=== PATIENT | male | born 1935 | race Caucasian/White ===

== ENCOUNTER 2017-04-04 04:38 | Inpatient (IN) | payer MEDICARE, OTHER ==
[2017-04-04] MEDS ORDERED: Aspirin Low Dose CHEW TAB* 81 MG PO ONE (04:59)
[2017-04-04 05:10] LABS: Hematocrit 31 % (42-52); Hemoglobin 10.8 g/dl (14.0-18.0); Mean Corpuscular HGB Conc 35 g/dl (31-36); Mean Corpuscular Hemoglobin 32 pg (27-31); Mean Corpuscular Volume 93 fL (80-94); Mean Platelet Volume 8 um3 (7.4-10.4); Red Blood Count 3.35 10^6/ul (4.0-5.4); Red Cell Distribution Width 14 % (10.5-15); White Blood Count 7.9 10^3/ul (3.5-10.8)
[2017-04-04 05:26] LABS: Albumin 3.9 g/dL (3.2-5.2); Calcium 9.1 mg/dL (8.6-10.3); EGFR African American 50.9 (>60); EGFR Non-African American 39.6 (>60); Globulin 3.7 g/dL (2-4); Potassium 3.9 mmol/L (3.5-5.0); Total Bilirubin 0.9 mg/dL (0.2-1.0); Total Protein 7.6 g/dL (6.4-8.9)
[2017-04-04 05:33] LABS: Troponin I 0.11 ng/mL (<0.04)
--- NOTE | 2017-04-04 05:34 | ED ---
Radha Noland Thomas, scribed for Sonu Smith MD on 04/04/17 at 0510 . Shortness of Breath - HPI Summary HPI Summary: The pt is a 82 y/o M presenting to the ED c/o new-onset mild SOB that began three days ago. The SOB is aggravated with exertion and is alleviated by nothing. 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 He also has A-Fib that began a year and a half ago. Pt also c/o 1/10 CP characterized a pressure, although he does note that this is difficult to distinguish from his costochondritis. Pt additionally c/o recent weight gain. He is taking spironolactone. PMHx: A-FIB, CHF, HTN, CAD, BPH, HLD. PSHx: aortic valve replacement, open heart surgery. SHx: no smoking, no alcohol use. He is accompanied by his . He has had EKGs and echocardiograms performed, and he is in the process of scheduling for a stress test. He presents to the ED at the request of his PCP, who he saw last week. Over the last 6 months, he has had 1- 2 episodes of SOB that are somewhat similar to this. - History of Current Complaint Chief Complaint: EDChestPainROMI Time Seen by Provider: 04/04/17 04:46 Hx Obtained From: Patient, Family/Gore Seamer - in room Onset/Duration: Lasting Days - 3, Still Present Timing: Constant Dyspnea At: Rest Aggrevating Factors: Movement Alleviating Factors: Nothing Associated Signs & Symptoms: Chest Pain Unrelated to Cough - Allergy/Home Medications Allergies/Adverse Reactions: Allergies Allergy/AdvReac Type Severity Reaction Status Date / Time Amoxicillin Allergy Severe Rash Verified 04/04/17 04:51 Naproxen [From Aleve] Allergy Severe Hives Verified 04/04/17 04:51 Food Allergy Unknown GI Upset Verified 04/04/17 04:51 Sulfa Drugs Allergy Unknown UNK Verified 04/04/17 04:51 Celecoxib [From Celebrex] AdvReac Intermediate GI SYMPTOMS Verified 04/04/17 04: 51 Hydrocodone AdvReac Intermediate GI SYMPTOMS Verified 04/04/17 04:51 Ibuprofen AdvReac Unknown GI Upset Verified 04/04/17 04:51 Home Medications: Home Medications Digoxin [Digitek] 0.5 - 1 mg PO EVERY OTHER DAY 04/04/17 [History Confirmed ] Levothyroxine Sodium [Levoxyl] 125 mcg PO DAILY 04/04/17 [History Confirmed ] Metoprolol Tartrate 75 mg PO DAILY 04/04/17 [History Confirmed 04/04/17] Spironolactone [Aldactone 25 MG-] 25 mg PO DAILY 04/04/17 [History Confirmed ] PMH/Surg Hx/FS Hx/Imm Hx Previously Healthy: No Endocrine/Hematology History: Reports: Hx Thyroid Disease Denies: Hx Diabetes Cardiovascular History: Reports: Hx Congestive Heart Failure, Hx Coronary Artery Disease, Hx Hypercholesterolemia, Hx Hypertension - W/MEDS, Hx Valvular Heart Disease - AORTIC VALVE REPLACEMENT, Other Cardiovascular Problems/ Disorders - CAD, HIGH CHOLESTEROL GI History: Denies: Other GI Disorders History: Reports: Other Problems/Disorders - prostate ca and prostatectomy Denies: Hx Renal Disease Musculoskeletal History: Reports: Hx Back Problems - s/p laminectomy, Other Musculoskeletal History - LAMINECTOMY Sensory History: Reports: Hx Contacts or Glasses - reading only, not with pt, Other Sensory Impairments - CORNEAL LENS IMPLANTS Opthamlomology History: Reports: Hx Contacts or Glasses - reading only, not with pt, Other Sensory Impairments - CORNEAL LENS IMPLANTS - Cancer History Cancer Type, Location and Year: PROSTATE 1999 - Surgical History Surgery Procedure, Year, and Place: RADICAL PROSTATECTOMY-1999, RF ABLATION, RT RCR-1998, LENS REPLACEMENTS, open heart. AVR-2009 Infectious Disease History: No Infectious Disease History: Reports: Hx Shingles Denies: Traveled Outside the [place] in Last 30 Days - Family History Known Family History: Positive: Other - POS: CVA - Social History Alcohol Use: None Substance Use Type: Reports: None Hx Tobacco Use: No Smoking Status (MU): Never Smoked Tobacco Review of Systems Positive: Other - POS: recent weight gain Positive: Chest Pain - 08/21, pressure, Other - POS: A-Fib (onset a year ago) Positive: Shortness Of Breath - mild, began 3 days ago, worsened with exertion All Other Systems Reviewed And Are Negative: Yes Physical Exam Triage Information Reviewed: Yes Vital Signs On Initial Exam: Initial Vitals Pulse Resp BP Pulse Ox 71 18 147/77 96 04/04/17 04:49 04/04/17 04:49 04/04/17 04:49 04/04/17 04:49 Vital Signs Reviewed: Yes Appearance: Positive: Well-Appearing, No Pain Distress Skin: Positive: Warm Head/Face: Positive: Normal Head/Face Inspection Eyes: Positive: AMY ENT: Positive: Hearing grossly normal Neck: Positive: Supple Respiratory/Lung Sounds: Positive: Clear to Auscultation, Breath Sounds Present Cardiovascular: Positive: RRR Abdomen Description: Positive: Nontender, No Organomegaly, Soft Bowel Sounds: Positive: Present Musculoskeletal: Positive: Strength/ROM Intact Neurological: Positive: Alert, Oriented to Person Place, Time, Normal Gait Psychiatric: Positive: Affect/Mood Appropriate - Reza Coma Scale Coma Scale Total: 15 Diagnostics - Vital Signs Vital Signs Temp Pulse Resp BP Pulse Ox 04/04/17 05:00 73 15 98 04/04/17 04:53 145/74 04/04/17 04:52 99.0 F 71 18 147/77 96 04/04/17 04:49 71 18 147/77 96 - Laboratory Result Diagrams: 04/04/17 04:58 04/04/17 04:58 Lab Statement: Any lab studies that have been ordered have been reviewed, and results considered in the medical decision making process. - EKG 04:43 Cardiac Rate: NL - 73 BPM EKG Interpretation: A-Fib. Moderate ventricular response. Nonspecific ST T abnormalities. Re-Evaluation - Re-Evaluation First Eval Change: Improved - results d/w pt, case d/w hospitalist Course/Dx - Course Assessment/Plan: The pt is a 82 y/o M presenting to the ED c/o new-onset mild SOB that began three days ago. The SOB is aggravated with exertion and is alleviated by nothing. 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 He also has A-Fib that began a year and a half ago. Pt also c/o 1/10 CP characterized a pressure, although he does note that this is difficult to distinguish from his costochondritis. Pt additionally c/o recent weight gain. He is taking spironolactone. PMHx: A-FIB, CHF, HTN, CAD, BPH, HLD. PSHx: aortic valve replacement, open heart surgery. SHx: no smoking, no alcohol use. He is accompanied by his . He has had EKGs and echocardiograms performed, and he is in the process of scheduling for a stress test. He presents to the ED at the request of his PCP, who he saw last week. Over the last 6 months, he has had 1- 2 episodes of SOB that are somewhat similar to this. In the ED course the patient was given ASA. Blood work shows RBC 3.35, Hgb 10.8, Hct 31, Sodium 129, Chloride 95, BUN 25, Creatinine 1.67, Glucose 112, Troponin 0.11, BNP 515. EKG reveals A-Fib with moderate ventricular response and nonspecific ST T abnormalities. I consulted with Dr. Chaudhari, hospitalist, who admits the patient to [facility]. - Diagnoses Provider Diagnoses: ACS (acute coronary syndrome) Discharge - Discharge Plan Condition: Fair Disposition: ADMITTED TO [facility] Referrals: Oswald Morgan MD [Primary Care Provider] - The documentation as recorded by the Radha de la cruz Thomas accurately reflects the service I personally performed and the decisions made by me, Sonu Smith MD.
[2017-04-04] MEDS ORDERED: Nitroglycerin TAB 0.4 MG* 0.4 MG TAB SL ONE (07:56)
--- NOTE | 2017-04-04 08:02 | RAD ---
INDICATION: Substernal chest pressure for a couple of weeks. History of aortic valve replacement, coronary artery disease, congestive heart failure. COMPARISON: January 20, 2016 CT. November 03, 2015 radiographs. TECHNIQUE: Dual energy PA and routine lateral views of the chest were obtained. REPORT: Mildly coarsened interstitial markings without change. No focal pulmonary lesion, alveolar consolidation, pleural effusion, pneumothorax. Median sternotomy wires. Mild cardiomegaly. Prosthetic aortic valve. Unremarkable central pulmonary vasculature and mediastinal contours. Thoracic degenerative spondylosis. IMPRESSION: No evidence for acute intrathoracic disease.
[2017-04-04 09:02] LABS: Troponin I 0.1 ng/mL (<0.04)
[2017-04-04] MEDS ORDERED: Furosemide IV* 10 MG/ML 2 ML VIAL (20 MG) IV ONE (09:19)
[2017-04-04] MEDS ORDERED: Acetaminophen TAB* 325 MG PO PRN (09:21)
[2017-04-04 09:48] LABS: Digoxin 0.3 ng/ml (0.8-2.0)
[2017-04-04 09:50] LABS: HDL Cholesterol 38.2 mg/dL
[2017-04-04] MEDS: Dabigatran CAP(NF) 150 MG CAP PO SCH ×2 (10:57→22:23)
--- NOTE | 2017-04-04 13:40 | HP ---
CC: Dr. Morgan; Dr. Moran; Dr. Fierro * HISTORY AND PHYSICAL: DATE OF ADMISSION: 04/04/17 PRIMARY CARE PROVIDER: Dr. Morgan. CHIEF COMPLAINT: Chest pain and shortness of breath. HISTORY OF PRESENT ILLNESS: Arnol Uribe is an 82-year-old male with a history of diastolic CHF, status post aortic valve replacement with bioprosthetic valve , who presented to [facility] complaining of chest pain and shortness of breath. The patient stated that his symptoms are mostly related to dyspnea with exertion, dyspnea when lying down. It has been ongoing for [address] Moran on 03/27/17, and as per patient, he was under the impression that he was going to get an outpatient stress test. As per Dr. Moran 's note, a stress test was not recommended at that point. Nevertheless, the patient came in, his troponin was 0.11. He complains of no chest pain, but once again dyspnea when lying down. He did gain approximately [address] Morgan stopped his diuretics for approximately a week at the beginning of the month due to his hyponatremia. Those were restarted. The patient also stated that his medications are in the process of being changed and he does not really remember his medications correctly. He is going to be admitted to the hospital with possibility of non-ST elevation PR. He is going to be placed for a stress test today in the morning and Cardiology consult. PAST MEDICAL HISTORY: 1. History of aortic stenosis, status bioprosthetic valve replacement in 2009. 2. Hypertension. 3. History of chronic atrial fibrillation, diagnosed a [id number] ago. 4. History of atrial tachycardia, status post ablation in 2005. 5. History of diastolic CHF, most recent echo on 03/25/17 showed EF of 55% to 60%. 6. History of dyslipidemia. 7. History of hyponatremia. 8. History of laminectomy. 9. History of shingles. 10. History of prostate cancer. 11. Chronic hyponatremia. 12. Chronic kidney disease, stage 3. MEDICATIONS: Current medications, from what I could gather from Dr. Moran's note and with the patient's help, include: 1. Diovan 40 mg daily. 2. Lipitor 10 mg daily. 3. Polyethylene glycol on daily basis. 4. Levothyroxine 125 micrograms daily. 5. Bumetanide 1.5 mg daily. 6. Metoprolol succinate 75 mg daily. 7. Pradaxa 150 mg b.i.d. 8. Vitamin D3 1000 units daily. 9. Ultram 100 mg at night. 10. Requip 1 mg at night. 11. Digoxin 0.125 micrograms alternating every other day with half the dose. 12. Aldactone 25 mg daily. ALLERGIES: Several and includes AMOXICILLIN, NAPROXEN, SULFA DRUGS, CELECOXIB HYDROCODONE, and IBUPROFEN. FAMILY HISTORY: Positive for mother with stroke and father with history of heart disease. SOCIAL HISTORY: The patient denies any tobacco, alcohol or drug use. 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 He lives with his , who is his healthcare proxy. He ambulates without any need of support. REVIEW OF SYSTEMS: Please see history of present illness. In addition to the above mentioned, the patient stated that he gained approximately 15 pounds in past 2 weeks. He noted more leg edema that improves after he takes his daily diuretics. The patient also stated that his blood pressures had been low and his medications had been adjusted due to that and his metoprolol was lowered recently by Dr. Morgan. He also states that he has problems with intermittent constipation and he takes laxatives for that, but no issues recently. All the remaining 14 systems reviewed with the patient and were otherwise negative. PHYSICAL EXAMINATION GENERAL: The patient is a very pleasant 82-year-old male, who is in no acute distress. His current weight is 243 pounds. The patient is alert, awake, and oriented x3. VITAL SIGNS: Blood pressure 143/78, heart rate of 71 and irregularly irregular , respiratory rate 13, oxygen saturation 97% on room, temperature 99.0. HEENT: Head is atraumatic, normocephalic. Eyes: Pupils are equal, reactive to light and accommodation. Oropharynx clear. Mucosa moist. NECK: Supple. No JVD, no bruits bilaterally. RESPIRATORY: Clear to auscultation bilaterally. CARDIOVASCULAR: Irregularly irregular rhythm. No murmur. ABDOMEN: Soft, nontender. Bowel sounds present in all 4 quadrants. EXTREMITIES: There is +1 pitting pedal edema bilaterally. Pulses are +2 bilaterally. There is no clubbing or cyanosis. NEUROLOGIC: Cranial nerves II through XII are grossly intact. Motor strength is 5/5 bilaterally. PSYCHIATRIC: Oriented x3, with no evidence of anxiety or depression. DIAGNOSTIC STUDIES/LABORATORY DATA: Laboratory data showed white blood cell count of 7.9, hemoglobin of 10.8, hematocrit of 31 and platelets of 139. Sodium was 129, potassium 3.9, chloride 95, carbon dioxide 27, BUN 25, and creatinine 1.67. Liver profile was unremarkable. The patient's troponin was 0.11, repeat troponin 0.1. Brain natriuretic peptide was 515. Cholesterol profile showed triglycerides of 42, total cholesterol of 86, LDL of 39, and HDL of 38. Digoxin level is 0.3. The patient's EKG showed atrial fibrillation, with a heart rate of 73 beats per minute, with right bundle-branch block and ST depressions in anterolateral leads. Compared with an EKG from October 2015, those changes are chronic. Portable chest x-ray, reviewed by the Radiologists. Impression: "No evidence of acute intrathoracic disease." ASSESSMENT AND PLAN: 1. In regards to the patient's dyspnea on exertion and chest pain, at this point, I believe, his symptoms are more related to congestive heart failure than obstructive coronary artery disease, but for the time being, non-ST elevation PR has to be on the differential. At this point, the patient is going to be treated with aspirin and Pradaxa as well as beta-blockers as previously used. The case was discussed with Dr. Fierro. The patient is going to undergo cardiac stress test today and Cardiology is going to be consulted. 2. In regards to the patient's congestive heart failure, that appears to be in mild exacerbation. In fact I believe that the patient's symptoms of dyspnea in the middle of the night and dyspnea on exertion as well as leg edema and 15- pound weight gain is due to congestive heart failure. The patient is going to be treated with one additional dose of 20 mg of Lasix IV today in addition to his usual diuretics. He is going to be placed on daily weight measurements. A transthoracic echocardiogram was already obtained 10 days ago and had good EF of 55% to 60%. Unfortunately, the patient does have history of hyponatremia, and that may limit the use of diuretics. I will also ask Dr. Fierro to comment on that. 3. In regards to the patient's hypertension, that is well controlled on current medications and are not going to be changed. 4. In regards to the patient's atrial fibrillation, currently rate controlled on beta-blockers and digoxin, which is not going to be changed. 5. For DVT prophylaxis, the patient is already on Pradaxa, which is going to be continued. 6. Patient has chronic kidney disease, with creatinine at his baseline. We will check creatinine while diuresing. 7. The patient's normocytic anemia is comparable with the patient's baseline in the past several months. 8. The patient's code status is full and his surrogate is his . 9. In regards to the patient's dyslipidemia, his Lipitor is going to be continued and his LDL is at goal. TIME SEEN: Approximately 75 minutes were spent on admission of this patient, more than half that time was spent face-to- face with the patient, doing the interview and physical exam. [id number]/[facility] #: [id number] KATIE
[2017-04-04] MEDS ORDERED: Ropinirole TAB* 0.5 MG TAB PO ONE (14:04)
[2017-04-04] MEDS ORDERED: traMADol TAB* 50 MG PO PRN (14:04)
--- NOTE | 2017-04-04 14:39 | CONSULT ---
Subjective Date of Service: 04/04/17 Interval History: Admission Date: 04/04/17 Consult date 04/04/2017: Provider: Hospitalist service/Laney Camarena MD PMD: Dr. Morgan Chha: Dr. Moran CHIEF COMPLAINT: Chest discomfort and shortness of breath Reason for consult: chest discomfort and dyspnea HISTORY OF PRESENT ILLNESS: Arnol Uribe is an 82-year-old male with a history of HFpEF/CKD, bioprosthetic AVR 2009 admitted with chest discomfort and dyspnea. Patient has recently noted easy fatigue, dyspnea and orthopnea and his blood pressure has been lower than usual. He states his BP usually drops when he exercise. He had weight gain after cardiovascular medications were adjusted earlier this month because of hyponatremia. He is now back on what I think is his regular diuretic regimen although diovan dose has been decreased. He has noted chest pressure with exertion although not often. There was an outpatient stress test being planned. He was admitted with above symptoms. He had a stress test yesterday in which he could only go 4 minutes on jon protocol due to dyspnea. He his rate went up quickly with exercise but he had not taken his morning metoprolol. His blood pressure also dropped with exercise although difficult to measure because of rapid atrial fibrillation. His perfusion imaging was normal (very mild diaphramatic attenuation artifact) and I reviewed the cine images there was no TID. PAST MEDICAL HISTORY: 1. History of aortic stenosis, status bioprosthetic valve replacement in 2009. 2. Hypertension. 3. History of chronic atrial fibrillation, diagnosed a [id number]-half ago. 4. History of atrial tachycardia, status post ablation in 2005. 5. History of diastolic CHF, most recent echo on 03/25/17 showed EF of 55% to 60%. 6. History of dyslipidemia. 7. History of hyponatremia. 8. History of laminectomy. 9. History of shingles. 10. History of prostate cancer. 11. Chronic hyponatremia. 12. Chronic kidney disease, stage 3. ALLERGIES: Several and includes AMOXICILLIN, NAPROXEN, SULFA DRUGS, CELECOXIB HYDROCODONE, and IBUPROFEN. FAMILY HISTORY: Positive for mother with stroke and father with history of heart disease. SOCIAL HISTORY: The patient denies any tobacco, alcohol or drug use. 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 He lives with his , who is his healthcare proxy. He ambulates without any need of support. Medications Active Medications: Acetaminophen (Tylenol Tab*) 650 mg PO Q4H PRN PRN Reason: FEVER/PAIN Atorvastatin Calcium (Lipitor*) 10 mg PO BEDTIME [facility] Bumetanide (Bumex Tab*) 1.5 mg PO DAILY [facility] Cholecalciferol (Vitamin D Tab*) 1,000 units PO QAM [facility] Dabigatran (Pradaxa Cap(Nf)) 150 mg PO BID [facility] Last Admin: 04/04/17 10:57 Dose: 150 mg Digoxin (Lanoxin Tab*) 0.125 mg PO 1700 [facility] Levothyroxine Sodium (Synthroid Tab*) 125 mcg PO DAILY [facility] Metoprolol Succinate (Toprol Xl Tab*) 75 mg PO DAILY [facility] Polyethylene Glycol/Electrolytes (Miralax*) 34 gm PO BEDTIME [facility] Ropinirole HCl (Requip Tab*) 0.5 mg PO BID [facility] Spironolactone (Aldactone Tab*) 25 mg PO DAILY [facility] Tramadol HCl (Ultram*) 50 mg PO Q6H PRN PRN Reason: PAIN Valsartan (Diovan Tab*) 40 mg PO 2100 [facility] Home Medications: Atorvastatin* [Lipitor 10 MG*] 10 mg PO BEDTIME 08/20/14 [History Confirmed ] Bumetanide TAB* [Bumex 2 MG TAB*] 1.5 mg PO DAILY 01/24/15 [History Confirmed ] Cholecalciferol TAB* [Vitamin D TAB*] 1,000 unit PO QAM 10/24/15 [History Confirmed 04/04/17] Dabigatran CAP(NF) [Pradaxa CAP(NF)] 300 mg PO BID 10/24/15 [History Confirmed 04/04/17] Polyethylene Glycol 3350* [Miralax*] 17 gm PO BEDTIME 10/24/15 [History Confirmed 04/04/17] Valsartan TAB* [Diovan TAB*] 40 mg PO BID 10/24/15 [History Confirmed 04/04/17] rOPINIRole TAB* [Requip TAB*] 0.5 mg PO BID 10/24/15 [History Confirmed 04/04/17 ] traMADol TAB* [Ultram*] 50 mg PO Q4HR PRN 10/24/15 [History Confirmed 04/04/17] Colchicine* [Colcrys*] 1 tab PO BID PRN 04/04/17 [History Confirmed 04/04/17] Digoxin [Digitek] 0.5 - 1 mg PO EVERY OTHER DAY 04/04/17 [History Confirmed ] Levothyroxine Sodium [Levoxyl] 125 mcg PO DAILY 04/04/17 [History Confirmed ] Metoprolol Tartrate 25 mg PO SEE INSTRUCTIONS 04/04/17 [History Confirmed ] - 1/2 in AM and 1 in pm Polyethylene Glycol-Propylene [Lubricant Eye Drops 0.4-0.3 %] 1 applic TOPICAL SEE INSTRUCTIONS PRN 04/04/17 [History Confirmed 04/04/17] Terazosin CAP* [Hytrin CAP*] 2 mg PO DAILY 04/04/17 [History Confirmed 04/04/17] Review of Systems - Measurements Intake and Output: Intake and Output Last 24 Hours 04/02/17 04/03/17 04/04/17 04/05/17 06:59 06:59 06:59 06:59 Weight 241 lb 12.8 oz - Review of Systems Constitutional Symptoms: Positive: Weight Gain, Fatigue Dermatology: Negative: Rash, Skin Lesions HEENT: Negative: Change in Hearing, Vertigo Eyes: Negative: Change in Vision, Double Vision Thyroid: Positive: Weight Gain Negative: Thyroid Nodule, Cold Intolerance, Heat Intolerance, Tremor, Frequent Defecation, Constipation, Palpitations, Primary Hypothyroidism, Primary Hyperthyroidism, Weight Loss Pulmonary: Positive: Shortness of Breath, Exercise Intolerance Negative: Cough, Sputum, Hemoptysis, Wheezing, Respiratory Distress, COPD, Asthma, Home Oxygen Cardiology: Positive: Chest Pain, Shortness of Breath, Orthopnea Negative: Palpitations, Swelling of Ankles, Peripheral Vascular Dis, Faintness, Syncope, Claudication Gastroenterology: Negative: Abdominal Pain, Nausea, Vomiting, Anorexia, Haematemesis, Melena Genital - Urinary: Negative: Dysuria, Hematuria Musculoskeletal: Negative: Joint Pain, Joint Stiffness, Arthritis Endocrinology: Positive: Obesity Negative: Thyroid Problems, Hyperglycemia, Hypoglycemia, Polydipsia, Polyuria Hematologic/Lymphatic: Positive: Use of Anticoagulant Negative: Anemia, Easy Brusing, Hx Leukemia, Hx Lymphoma, Use of Antiplatelet Drugs Neurology: Negative: Headaches, Migraines, Change in Vision, Diplopia, Dizziness, Change in Balancing, Change in Coordination, Change in Memory, Change in Speech , Change in Sphincter Function, Change in Walking, Numbness\Paresthesiae Psychiatry: Positive: Weight Change Negative: Adhedonia, Guilt Feelings, Tearfulness Allergic/Immunologic: Negative: Hx HIV, Immunocompromise Review of Systems Statement: All other review of systems negative, unless stated above. Objective Vital Signs: Temp Pulse Resp BP Pulse Ox 98.2 F 65 16 136/65 99 04/04/17 11:36 04/04/17 11:36 04/04/17 11:36 04/04/17 11:36 04/04/17 11:36 Appearance: nad, pleasant Ears/Nose/Mouth/Throat: Clear Oropharnyx, Mucous Membranes Moist Neck: Trachea Midline, - - uncertain jvp Respiratory: Symmetrical Chest Expansion and Respiratory Effort, Clear to Auscultation Cardiovascular: RRR - sternotomy scar, irregularly irregular, soft systolic murmur Abdominal: NL Sounds; No Tenderness; No Distention Extremities: - - trace edema Neurological: Alert and Oriented x 3 Laboratory Results: 04/04/17 04:58 04/04/17 04:58 Total Bilirubin 0.90 mg/dL (0.2-1.0) 04/04/17 04:58 AST 25 U/L (13-39) 04/04/17 04:58 ALT 12 U/L (7-52) 04/04/17 04:58 Alkaline Phosphatase 82 U/L (34-104) 04/04/17 04:58 B-Natriuretic Peptide 515 pg/mL (-100) H 04/04/17 04:58 Total Protein 7.6 g/dL (6.4-8.9) 04/04/17 04:58 Albumin 3.9 g/dL (3.2-5.2) 04/04/17 04:58 Globulin 3.7 g/dL (2-4) 04/04/17 04:58 Albumin/Globulin Ratio 1.1 (1-3) 04/04/17 04:58 Triglycerides 42 mg/dL 04/04/17 08:30 Cholesterol 86 mg/dL 04/04/17 08:30 LDL Cholesterol 39 mg/dL 04/04/17 08:30 HDL Cholesterol 38.2 mg/dL 04/04/17 08:30 04/04/17 04/04/17 04/04/17 04:58 08:30 10:44 Troponin I 0.11 H* 0.10 H* 0.10 H* Diagnostic Imaging: TTE 03/25/2017: LVEf 55-60%, moderate LA dilation, normal aortic bioprosthesis, moderate TR with mild pHTN Catheterization 01/2010: Mild non-obstructive CAD EKG Data: EKG 04/04/2017: Afib rate 65 bpm, RBBB, diffuse downsloping ST depression consider digoxin effect Assessment/Plan Arnol Uribe is an 82-year-old male with a history of HFpEF/CKD, bioprosthetic AVR 2009, chronic hyponatremia since at least 2011 (stable), atrial fibrillation admitted with likely symptomatic volume overload, detectable troponin likely from CKD and CHF, no evidence of a type 1 DE, normal stress test. - Continue diuresis, recent cardiovascular medications, trend i/o, weights, and BMP. Hyponatremia chronic, stable, asymptomatic, can follow Thank you for allowing me to participate in the cardiovascular care of this patient. Please do not hesitate to contact me with questions or concerns.
[2017-04-04] MEDS: Metoprolol Succinate XL TAB* 25 MG PO SCH ×2 (14:55→15:05)
[2017-04-04] MEDS: traMADol TAB* 50 MG PO SCH ×2 (17:31→22:24)
[2017-04-04] MEDS: Ropinirole TAB* 0.5 MG TAB PO SCH ×2 (17:31→22:31)
[2017-04-04] MEDS: Digoxin TAB* 0.125 MG PO SCH (17:31)
[2017-04-04] MEDS ORDERED: Dabigatran CAP(NF) 150 MG CAP PO SCH (18:00)
[2017-04-04] MEDS ORDERED: rOPINIRole TAB* 1 MG PO SCH (22:00)
[2017-04-04] MEDS ORDERED: traMADol TAB* 50 MG PO SCH (22:00)
[2017-04-04] MEDS: Atorvastatin* 10 MG TAB PO SCH (22:23)
[2017-04-04] MEDS: Polyethylene Glycol 3350* 17 GM PACKET PO SCH (22:23)
[2017-04-04] MEDS: Valsartan TAB* 40 MG PO SCH (22:24)
[2017-04-05 05:21] LABS: Hematocrit 31 % (42-52); Hemoglobin 10.6 g/dl (14.0-18.0); Mean Corpuscular HGB Conc 35 g/dl (31-36); Mean Corpuscular Hemoglobin 33 pg (27-31); Mean Corpuscular Volume 94 fL (80-94); Mean Platelet Volume 9 um3 (7.4-10.4); Red Blood Count 3.25 10^6/ul (4.0-5.4); Red Cell Distribution Width 14 % (10.5-15); White Blood Count 7.5 10^3/ul (3.5-10.8)
[2017-04-05 05:33] LABS: BUN/Creatinine Ratio 15.4 (8-20); Calcium 9.2 mg/dL (8.6-10.3); EGFR African American 60.9 (>60); EGFR Non-African American 47.3 (>60); Potassium 4.4 mmol/L (3.5-5.0)
[2017-04-05] MEDS: Levothyroxine TAB* 125 MCG TAB PO SCH (06:04)
[2017-04-05] MEDS: Dabigatran CAP(NF) 150 MG CAP PO SCH ×2 (08:11→22:01)
[2017-04-05] MEDS: Cholecalciferol TAB* 1000 UNITS PO SCH (08:11)
[2017-04-05] MEDS: Spironolactone TAB* 25 MG PO SCH (08:11)
[2017-04-05] MEDS: Bumetanide TAB* 1 MG PO SCH (08:11)
--- NOTE | 2017-04-05 08:45 | RAD ---
INDICATION: Chest pain. Short of breath. COMPARISON: None TECHNIQUE: Rest images were acquired following the intravenous injection of 25.6 millicuries of technetium 99m tetrofosmin. Exercise stress images were acquired following the intravenous administration of 26.0 millicuries of technetium 99m tetrofosmin. The patient was exercised to a peak heart rate of 164 which is greater than 100% of age predicted maximum. FINDINGS: There are no definitive defects of the stress-induced or fixed nature. There are moderate to mild apical thinning. The cardiac chamber size is normal. There are no wall motion abnormalities. The ejection fraction is calculated at 62 percent during rest and 63% during stress. IMPRESSION: NO DEFINITIVE DEFECTS OR STRESS-INDUCED OR FIXED NATURE. ASSESSMENT: LOW-RISK Based on imaging criteria from ACC/AHA 2002 Guideline Update for the Management of Patients With Chronic Stable Angina Table 23. Noninvasive Risk Stratification.
[2017-04-05] MEDS ORDERED: Metoprolol Tartrate TAB* 25 MG PO SCH (09:00)
[2017-04-05] MEDS: Metoprolol Succinate XL TAB* 25 MG PO SCH (10:05)
[2017-04-05] MEDS ORDERED: Metolazone TAB* 5 MG PO ONE (12:54)
[2017-04-05] MEDS ORDERED: Furosemide IV* 10 MG/ML 2 ML VIAL (20 MG) IV SLOW PU ONE (13:30)
--- NOTE | 2017-04-05 13:46 | PN ---
Subjective Date of Service: 04/05/17 Interval History: HOSPITALIST PROGRESS NOTE Patient seen and examined at bedside. He feels better today. Still has some dyspnea on exertion, but less intense than before. Denies CP or palpitations. Family History: Unchanged from Admission Social History: Unchanged from Admission Past Medical History: Unchanged from Admission Objective Active Medications: Acetaminophen (Tylenol Tab*) 650 mg PO Q4H PRN PRN Reason: FEVER/PAIN Atorvastatin Calcium (Lipitor*) 10 mg PO BEDTIME [facility] Last Admin: 04/04/17 22:23 Dose: 10 mg Bumetanide (Bumex Tab*) 1.5 mg PO DAILY [facility] Last Admin: 04/05/17 08:11 Dose: 1.5 mg Cholecalciferol (Vitamin D Tab*) 1,000 units PO QAM [facility] Last Admin: 04/05/17 08:11 Dose: 1,000 units Dabigatran (Pradaxa Cap(Nf)) 150 mg PO BID [facility] Last Admin: 04/05/17 08:11 Dose: 150 mg Digoxin (Lanoxin Tab*) 0.125 mg PO 1700 [facility] Last Admin: 04/04/17 17:31 Dose: 0.125 mg Levothyroxine Sodium (Synthroid Tab*) 125 mcg PO 0600 [facility] Last Admin: 04/05/17 06:04 Dose: 125 mcg Metoprolol Succinate (Toprol Xl Tab*) 75 mg PO DAILY [facility] Last Admin: 04/05/17 10:05 Dose: Not Given Polyethylene Glycol/Electrolytes (Miralax*) 34 gm PO BEDTIME [facility] Last Admin: 04/04/17 22:23 Dose: 34 gm Ropinirole HCl (Requip Tab*) 0.5 mg PO 1800,2200 [facility] Last Admin: 04/04/17 22:31 Dose: 0.5 mg Spironolactone (Aldactone Tab*) 25 mg PO DAILY [facility] Last Admin: 04/05/17 08:11 Dose: 25 mg Tramadol HCl (Ultram*) 50 mg PO Q6H PRN PRN Reason: PAIN Last Admin: 04/04/17 15:00 Dose: 50 mg Tramadol HCl (Ultram*) 50 mg PO 1800,2200 [facility] Last Admin: 04/04/17 22:24 Dose: 50 mg Valsartan (Diovan Tab*) 40 mg PO 2100 [facility] Last Admin: 04/04/17 22:24 Dose: 40 mg Vital Signs 04/05/17 04/05/17 08:00 11:20 Temperature 97.6 F Pulse Rate 71 Respiratory 16 16 Rate Blood Pressure 128/69 (mmHg) O2 Sat by Pulse 97 Oximetry Oxygen Devices in Use Now: None Appearance: Pleasant elderly male sitting up in bed in NAD. Eyes: No Scleral Icterus Ears/Nose/Mouth/Throat: Mucous Membranes Moist Neck: Trachea Midline Respiratory: Symmetrical Chest Expansion and Respiratory Effort, - - BS+ bilaterally with bibasilar rales Cardiovascular: RRR - Normal S1 and S2 Extremities: - - Bilateral LE moderate to severe edema Neurological: Alert and Oriented x 3, NL Muscle Strength and Tone Lines/Tubes/Other Access: Clean, Dry and Intact Peripheral IV Nutrition: Taking PO's Result Diagrams: 04/05/17 04:55 04/05/17 04:55 Assess/Plan/Problems-Billing Assessment: Mr. Uribe is an 82yo M with PMH of Afib, s/p AVR (bovine) in 2009, HTN, diastolic CHF, HLD, chronic hyponatremia, prostate CA, CKD stage 3, who presented to ED with c/o chest discomfort and dyspnea, found to have CHF exacerbation. - Patient Problems (1) Acute diastolic (congestive) heart failure Comment: - Patient states his PCP has adjusted his diuretics due to hyponatremia , and actually stopped it for 5 days and patient became very swollen - this is the likely cause of his exacerbation. - Will continue diuresis - Metolazone/Furosemide today, resume Bumetanied and Spironolactone. - Monitor I/Os, daily weights. (2) Elevated troponin Comment: - Secondary to CHF exacerbation and CKD. - Stress test showed no defects of a stress induced or fixed nature. (3) Hyponatremia Comment: - Chronic and stable. (4) HTN (hypertension) Comment: - Continue Metoprolol and Valsartan. (5) Afib Comment: - Rate controlled - continue Metoprolol and Digoxin. - Anticoagulation with Pradaxa. (6) DVT prophylaxis Comment: - Pradaxa. (7) Full code status
[2017-04-05] MEDS: Ropinirole TAB* 0.5 MG TAB PO SCH ×2 (17:28→22:18)
[2017-04-05] MEDS: Digoxin TAB* 0.125 MG PO SCH (17:28)
[2017-04-05] MEDS: traMADol TAB* 50 MG PO SCH ×2 (17:28→22:03)
[2017-04-05] MEDS: Atorvastatin* 10 MG TAB PO SCH (22:02)
[2017-04-05] MEDS: Polyethylene Glycol 3350* 17 GM PACKET PO SCH (22:02)
[2017-04-06] MEDS: Valsartan TAB* 40 MG PO SCH (04:00)
[2017-04-06 05:59] LABS: BUN/Creatinine Ratio 16.7 (8-20); Calcium 9.2 mg/dL (8.6-10.3); EGFR African American 57.6 (>60); EGFR Non-African American 44.8 (>60); Magnesium 1.8 mg/dL (1.9-2.7); Potassium 4.1 mmol/L (3.5-5.0)
[2017-04-06] MEDS: Levothyroxine TAB* 125 MCG TAB PO SCH (06:03)
[2017-04-06] MEDS ORDERED: Magnesium Sulfate 2 GM IV* 2 GM/50 ML BAG IVPB ONE (06:17)
[2017-04-06 08:09] VITALS: BP 142/69
[2017-04-06] MEDS: Bumetanide TAB* 1 MG PO SCH (08:10)
[2017-04-06] MEDS: Spironolactone TAB* 25 MG PO SCH (08:10)
[2017-04-06] MEDS: Cholecalciferol TAB* 1000 UNITS PO SCH (08:10)
[2017-04-06] MEDS: Metoprolol Succinate XL TAB* 25 MG PO SCH (08:11)
[2017-04-06] MEDS: Dabigatran CAP(NF) 150 MG CAP PO SCH (08:11)
[2017-04-06] MEDS ORDERED: Digoxin TAB* 0.25 MG PO SCH (09:00)
--- NOTE | 2017-04-07 02:29 | DS ---
CC: Dr. Morgan; Dr. Moran DISCHARGE SUMMARY: DATE OF ADMISSION: 04/04/17 DATE OF DISCHARGE: 04/06/17 PRIMARY CARE PROVIDER: Dr. Morgan. SOCIAL SERVICE ASSISTANT: Dr. Moran. DISCHARGE DIAGNOSIS: Acute diastolic CHF exacerbation. SECONDARY DIAGNOSES: 1. Aortic stenosis, status post bioprosthetic valve replacement 2009. 2. Hypertension. 3. Chronic atrial fibrillation, on anticoagulation with Pradaxa. 4. Atrial tachycardia, status post ablation in 2005. 5. Diastolic CHF with last echo on March 25 showing ejection fraction 55% to 60%. 6. Hyperlipidemia. 7. Chronic hyponatremia. 8. History of prostate Cancer. 9. Chronic kidney disease stage 3. 10. History of shingles. MEDICATIONS: 1. Metoprolol tartrate 25 mg p.o. in the morning and 50 mg p.o. bedtime. 2. Lumigan eye drops, to apply to eyes daily as needed for dry eyes. 3. Losartan 40 mg p.o. b.i.d. 4. Colchicine 0.6 mg p.o. b.i.d. as needed for gout. 5. Ropinirole 0.5 mg p.o. b.i.d. 6. Tramadol 50 mg p.o. q.4 hours p.r.n. pain. 7. MiraLAX 17 g p.o. at bedtime. 8. Pradaxa 300 mg p.o. b.i.d. 9. Levothyroxine 125 mcg p.o. daily. 10. Bumetanide 2 mg 1.5 tablets p.o. daily. 11. Atorvastatin 10 mg p.o. at bedtime. 12. Cholecalciferol 1000 units p.o. daily. 13. Digoxin 0.125 mg 1 tablet alternating with half a tablet every other day. 14. Spironolactone 25 mg p.o. daily. HOSPITAL COURSE: Mr. Uribe is an 82-year-old male with a past medical history as stated above who pr esented to the emergency room with complaints of chest discomfort and shortness of breath. Most of his symptoms were related to dyspnea on exertion and orthopnea for the past 5 days. He had seen Dr Karissa Moran as outpatient on March 27 and at that time the plan was to get an outpatient stress test. Although he had no new EKG changes, he had mild elevation of troponins, 0.11, 0.10, and 0.10. His diuretics had been held earlier this month due to hyponatremia and at that point the patient gained approximately 15 pounds with significant lower extremity edema. For more details of his presentatio n, I refer you to his history and physical. The impression was that his chest discomfort and dyspnea were likely associated with acute diastolic CHF exacerbation, but with his troponin elevation, he was admitted to rule out acute coronary syndr ome. The impression is that the troponin elevation is likely associated with his CHF. He was seen in consultation by Cardiology (Dr. Fierro) and he agreed with our impression and his rec ommendation was to continue diuresis. The patient underwent exercise Myoview stress test and it showed no definitive defects of stress ind uced or fixed nature and ejection fraction was 63%. The patient responded well to intravenous diuretics and his weight went down from 243 on admission t o 236 on the day of discharge. The patient has had chronic hyponatremia going back in our system at least since 2011. 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 With diuresis, his sodium did drop to 125, but he is asymptomatic. He really feels that he responds well to the combination of bumetanide and the spironolactone, so he will be continued on it, but he will need close monitoring of his renal function and electrolytes. The plan is for him to have ano ther basic metabolic panel checked on 04/08/17, and the results will be send to Dr. Eddie falcon continue to adjust his medications. Depending on his blood pressure and renal function, he may be nefit with a lower dose of valsartan, so he can continue his diuretics. While on telemetry, the patient had an episode of 16 beats of a wide complex tachycardia. Although the nurse was concerned with V-tach, I believe it represents atrial fibrillation with aberrancy, es pecially considering his normal stress test. His magnesium was 1.8 and this was repleted. His potas sium remained normal throughout. The patient had considerable improvement on his shortness of breath and resolution of his chest pres sure. He is medically stable to be discharged home today. PHYSICAL EXAMINATION: Vital Signs: Temperature 97.9, heart rate is 73, respiratory rate is 20, o xygen saturation 97% on room air, blood pressure is 142/69. General: The patient is a pleasant eld erly male, sitting up in bed, in no acute distress. CVS: Normal S1, S2. Regular rate and rhythm. Chest: Breath sounds present bilaterally with no added sounds. Extremities: There is mild-to- mo derate bilateral lower extremity pitting edema. Neuro: He is alert and oriented x3. Able to move all 4 extremities. DIET: Heart-healthy diet, avoid caffeine. ACTIVITIES: As tolerated. DISPOSITION: To home. STATUS WHILE IN THE HOSPITAL: Inpatient. Please keep in mind, this is a summarized version of this patient's hospital stay. If you need more information, please feel free to call me at [phone] or please obtain the full medical records. TIME SEEN: Approximately 45 minutes was spent to complete the discharge. [id number]/[facility] #: [id number]
== END 2017-04-06 11:35 | disposition home or self-care (01) | DRG 291 ==
LOC: ED 04:38 → MEDTELE 07:57
PROVIDERS: ADMIT Internal Medicine; ATTEND Internal Medicine
PROC: 4A12XM4 Monitoring of Cardiac Stress, External Approach (ICD-10-PCS; principal; 2017-04-04)
DX: I13.0 Hypertensive heart and chronic kidney disease with heart failure and stage 1 through stage 4 chronic kidney disease, or unspecified chronic kidney disease (principal); I50.33 Acute on chronic diastolic (congestive) heart failure; E87.1 Hypo-osmolality and hyponatremia; I48.2 Chronic atrial fibrillation; N18.3 Chronic kidney disease, stage 3 (moderate); Z95.2 Presence of prosthetic heart valve; I48.91 Unspecified atrial fibrillation; I25.10 Atherosclerotic heart disease of native coronary artery without angina pectoris; N40.0 Benign prostatic hyperplasia without lower urinary tract symptoms; E78.5 Hyperlipidemia, unspecified; Z88.1 Allergy status to other antibiotic agents; Z88.5 Allergy status to narcotic agent; Z88.2 Allergy status to sulfonamides; Z88.8 Allergy status to other drugs, medicaments and biological substances; Z85.46 Personal history of malignant neoplasm of prostate; Z82.3 Family history of stroke; Z79.01 Long term (current) use of anticoagulants; Z82.49 Family history of ischemic heart disease and other diseases of the circulatory system; R00.0 Tachycardia, unspecified
CPT/HCPCS: 36415; 71020; 78452; 80048; 80053; 80061; 80162; 83605; 83735; 83880; 84484; 85025; 93005; 93017; A9270-GY; A9502; J1940; J3475

== ENCOUNTER 2017-05-21 16:41 | Emergency (ER) | payer MEDICARE, OTHER ==
--- NOTE | 2017-05-21 17:30 | RAD ---
Indication: Dyspnea on exertion. Tachycardia. History of arrhythmia. Comparison: April 04, 2017 Technique: Upright AP 1700 hours Report: Costochondral calcifications noted. No focal pulmonary lesion, compelling alveolar consolidation, pleural effusion, pneumothorax. Median sternotomy wires. The heart, pulmonary vasculature, and mediastinal contours are unremarkable. IMPRESSION: No evidence for acute intrathoracic disease.
[2017-05-21 17:43] LABS: Hematocrit 39 % (42-52); Hemoglobin 13.8 g/dl (14.0-18.0); Mean Corpuscular HGB Conc 35 g/dl (31-36); Mean Corpuscular Hemoglobin 33 pg (27-31); Mean Corpuscular Volume 92 fL (80-94); Mean Platelet Volume 8 um3 (7.4-10.4); Red Blood Count 4.23 10^6/ul (4.0-5.4); Red Cell Distribution Width 15 % (10.5-15); White Blood Count 7.8 10^3/ul (3.5-10.8)
[2017-05-21 17:57] LABS: Albumin 3.9 g/dL (3.2-5.2); Calcium 9.4 mg/dL (8.6-10.3); EGFR African American 64.5 (>60); EGFR Non-African American 50.2 (>60); Globulin 3.9 g/dL (2-4); Total Bilirubin 0.7 mg/dL (0.2-1.0); Total Protein 7.8 g/dL (6.4-8.9)
[2017-05-21 18:05] LABS: Troponin I 0.08 ng/mL (<0.04)
[2017-05-21 19:06] LABS: Potassium 4.1 mmol/L (3.5-5.0)
[2017-05-21 20:57] LABS: Digoxin 0.5 ng/ml (0.8-2.0)
[2017-05-21 21:00] LABS: Magnesium 1.7 mg/dL (1.9-2.7)
--- NOTE | 2017-05-21 21:20 | ED ---
Anmol Noland Benjamin, scribed for Toby Velázquez MD on 05/21/17 at 2023 . Palpitations / Dysrhythmia - HPI Summary HPI Summary: 82yo male presents to ED c/o HR faster than his baseline. HR was in the 150s earlier today around 1530 when his usual range is in 90s. Pt denies any CP, but reports feeling slightly dyspnic and dizzy at the time of onset. Pt admits travelling recently via flight. PMHx of afib. Pt takes metoprolol and digoxin for rate control. Pt is on pradaxa. Palpitations is resolved now. - History of Current Complaint Chief Complaint: EDDysrhythmPalp Time Seen by Provider: 05/21/17 20:14 Hx Obtained From: Patient Onset/Duration: Sudden Onset, Lasting Minutes, Resolved Timing: Intermittent Episodes Lasting: Severity Initially: Moderate Severity Currently: None Character: Fast, Irregular Aggravating: Exertion Alleviating: Exertion Associated Signs & Symptoms: Dizzy, Shortness of Breath - Allergy/Home Medications Allergies/Adverse Reactions: Allergies Allergy/AdvReac Type Severity Reaction Status Date / Time Amoxicillin Allergy Severe Rash Verified 04/04/17 04:51 Naproxen [From Aleve] Allergy Severe Hives Verified 04/04/17 04:51 Sulfa Drugs Allergy Unknown UNK Verified 04/04/17 04:51 Celecoxib [From Celebrex] AdvReac Intermediate GI SYMPTOMS Verified 04/04/17 04: 51 Hydrocodone AdvReac Intermediate GI SYMPTOMS Verified 04/04/17 04:51 Food AdvReac Unknown GI Upset Verified 04/04/17 09:36 Ibuprofen AdvReac Unknown GI Upset Verified 04/04/17 04:51 Home Medications: Home Medications Clindamycin Cap(NF) [Clindamycin Cap 300 mg Cap(NF)] 600 mg PO ONCE 05/21/17 [ History Confirmed 05/21/17] Coenzyme Q10 (Ubidecarenone) [Coq10] 100 mg PO DAILY 05/21/17 [History Confirmed 05/21/17] Digoxin TAB* [Lanoxin TAB*] 0.0625 mg PO DAILY 05/21/17 [History Confirmed 05/21] Digoxin TAB* [Lanoxin TAB*] 0.125 mg PO EVERY OTHER DAY 05/21/17 [History Confirmed 05/21/17] Metoprolol Tartrate TAB* [Lopressor TAB*] 25 mg PO QAM 05/21/17 [History Confirmed 05/21/17] Spironolactone TAB* [Aldactone TAB 25 MG*] 25 mg PO EVERY OTHER DAY 05/21/17 [ History Confirmed 05/21/17] PMH/Surg Hx/FS Hx/Imm Hx Endocrine/Hematology History: Denies: Hx Diabetes, Hx Thyroid Disease Cardiovascular History: Reports: Hx Angina, Hx Congestive Heart Failure, Hx Coronary Artery Disease, Hx Hypercholesterolemia, Hx Hypotension, Hx Hypertension, Hx Valvular Heart Disease - AORTIC VALVE REPLACEMENT, Other Cardiovascular Problems/Disorders - CAD, HIGH CHOLESTEROL Denies: Hx Myocardial Infarction, Hx Peripheral Vascular Disease Respiratory History: Denies: Hx Asthma, Hx Chronic Obstructive Pulmonary Disease (COPD) GI History: Denies: Other GI Disorders History: Reports: Other Problems/Disorders - prostate ca and prostatectomy Denies: Hx Renal Disease Musculoskeletal History: Reports: Hx Back Problems, Other Musculoskeletal History - LAMINECTOMY Denies: Hx Arthritis Sensory History: Reports: Hx Contacts or Glasses - reading, Other Sensory Impairments - CORNEAL LENS IMPLANTS Denies: Hx Hearing Aid Opthamlomology History: Reports: Hx Contacts or Glasses - reading, Other Sensory Impairments - CORNEAL LENS IMPLANTS Neurological History: Denies: Hx Headaches - Cancer History Cancer Type, Location and Year: PROSTATE 1999 - Surgical History Surgery Procedure, Year, and Place: RADICAL PROSTATECTOMY-1999, RF ABLATION, RT RCR-1998, LENS REPLACEMENTS, open heart. AVR-2009, prostatectomy Infectious Disease History: No Infectious Disease History: Reports: Hx Shingles Denies: Traveled Outside the [place] in Last 30 Days - Family History Known Family History: Positive: Other - POS: CVA - Social History Lives: With Family Alcohol Use: None Substance Use Type: Reports: None Hx Tobacco Use: No Smoking Status (MU): Never Smoked Tobacco Have You Smoked in the Last Year: No Review of Systems Constitutional: Negative Eyes: Negative ENT: Negative Positive: Palpitations. Negative: Chest Pain Positive: Shortness Of Breath Gastrointestinal: Negative Genitourinary: Negative Musculoskeletal: Negative Skin: Negative Neurological: Negative Psychological: Normal All Other Systems Reviewed And Are Negative: Yes Physical Exam Triage Information Reviewed: Yes Vital Signs On Initial Exam: Initial Vitals Temp Pulse Resp BP Pulse Ox 98.6 F 145 20 141/58 100 05/21/17 16:55 05/21/17 16:55 05/21/17 16:55 05/21/17 16:55 05/21/17 16:55 Vital Signs Reviewed: Yes Appearance: Positive: Well-Appearing, No Pain Distress, Well-Nourished Skin: Positive: Warm, Skin Color Reflects Adequate Perfusion, Dry Head/Face: Positive: Normal Head/Face Inspection Eyes: Positive: EOMI, AMY ENT: Positive: Normal ENT inspection Neck: Positive: Supple, Nontender Respiratory/Lung Sounds: Positive: Clear to Auscultation, Breath Sounds Present Cardiovascular: Positive: Pulses are Symmetrical in both Upper and Lower Extremities, IRR - pt is in afib, less than 100bpm Abdomen Description: Positive: Nontender, Soft Bowel Sounds: Positive: Present Musculoskeletal: Positive: Strength/ROM Intact. Negative: Edema Left, Edema Right Neurological: Positive: Sensory/Motor Intact, Alert, Oriented to Person Place, Time Psychiatric: Positive: Affect/Mood Appropriate Diagnostics - Vital Signs Vital Signs Temp Pulse Resp BP Pulse Ox 05/21/17 19:00 85 13 145/50 97 05/21/17 18:30 91 16 139/71 97 05/21/17 18:00 85 16 148/56 97 05/21/17 17:34 88 16 135/60 96 05/21/17 17:30 87 16 97 05/21/17 17:27 97 05/21/17 17:08 87 19 98 05/21/17 17:07 119/77 05/21/17 16:55 98.6 F 145 20 141/58 100 - Laboratory Lab Results: Lab Results 05/21/17 05/21/17 05/21/17 Range/Units 17:30 17:30 17:30 WBC 7.8 (3.5-10.8) 10^3/ul RBC 4.23 (4.0-5.4) 10^6/ul Hgb 13.8 L (14.0-18.0) g/dl Hct 39 L (42-52) % MCV 92 (80-94) fL MCH 33 H (27-31) pg MCHC 35 (31-36) g/dl RDW 15 (10.5-15) % Plt Count 199 (150-450) 10^3/ul MPV 8 (7.4-10.4) um3 Neut % (Auto) 55.5 (38-83) % Lymph % (Auto) 29.3 (25-47) % [place] % (Auto) 9.0 (1-9) % Eos % (Auto) 5.3 (0-6) % Baso % (Auto) 0.9 (0-2) % Absolute Neuts (auto) 4.3 (1.5-7.7) 10^3/ul Absolute Lymphs (auto) 2.3 (1.0-4.8) 10^3/ul Absolute Monos (auto) 0.7 (0-0.8) 10^3/ul Absolute Eos (auto) 0.4 (0-0.6) 10^3/ul Absolute Basos (auto) 0.1 (0-0.2) 10^3/ul Absolute Nucleated RBC 0.01 10^3/ul Nucleated RBC % 0.1 Sodium 128 L (133-145) mmol/L Potassium 4.1 (3.5-5.0) mmol/L Chloride 94 L (101-111) mmol/L Carbon Dioxide 28 (22-32) mmol/L Anion Gap 6 (2-11) mmol/L BUN 19 (6-24) mg/dL Creatinine 1.36 H (0.67-1.17) mg/dL Est GFR ( Amer) 64.5 (>60) Est GFR (Non-Af Amer) 50.2 (>60) BUN/Creatinine Ratio 14.0 (8-20) Glucose 202 H (70-100) mg/dL Lactic Acid 1.7 (0.5-2.0) mmol/L Calcium 9.4 (8.6-10.3) mg/dL Total Bilirubin 0.70 (0.2-1.0) mg/dL AST 31 (13-39) U/L ALT 18 (7-52) U/L Alkaline Phosphatase 65 (34-104) U/L Troponin I 0.08 H* (<0.04) ng/mL Total Protein 7.8 (6.4-8.9) g/dL Albumin 3.9 (3.2-5.2) g/dL Globulin 3.9 (2-4) g/dL Albumin/Globulin Ratio 1.0 (1-3) Result Diagrams: 05/21/17 17:30 05/21/17 17:30 Lab Statement: Any lab studies that have been ordered have been reviewed, and results considered in the medical decision making process. - Radiology CXR Xray Interpretation: No Acute Changes Radiology Interpretation Completed By: Radiologist - ED physician has reviewed this radiology report and agrees. - EKG 1738. Cardiac Rate: NL - 87bpm EKG Rhythm: Atrial Fibrillation EKG Interpretation: ST depression in anterior and lateral leads. EKG Comparison: No Significant Change - compared to 04/04/17 Re-Evaluation - Re-Evaluation First Eval Re-Evaluation Time: 20:23 Comment: Reviewed pt's lab and imaging results. Course/Dx - Course Course Of Treatment: Reviewed pts medication and allergy lists. High blood pressure noted. PATIENT FEELS WELL, DISCUSSED TROPONINS AND OTHER LABS WITH HIM AND HIS . DISCUSSED ADMISSION. PATIENT PREFERS TO GO HOME AND F/U WITH PMD; HE WILL RETURN IF WORSE. - Diagnoses Provider Diagnoses: Tachycardia, A-fib Discharge - Discharge Plan Condition: Stable Disposition: HOME Patient Education Materials: Tachycardia (ED), A-fib (Atrial Fibrillation) (ED ) Referrals: Oswald Morgan MD [Primary Care Provider] - Additional Instructions: FOLLOW UP WITH YOUR DOCTOR. RETURN TO THE EMERGENCY DEPARTMENT FOR ANY WORSENING OF YOUR CONDITION OR QUESTIONS OR CONCERNS. The documentation as recorded by the Anmol de la cruz Benjamin accurately reflects the service I personally performed and the decisions made by me, Toby Velázquez MD.
[2017-05-21 21:37] VITALS: BP 121/69
== END 2017-05-21 21:37 | disposition home or self-care (01) ==
LOC: ED 16:41
DX: I48.91 Unspecified atrial fibrillation (principal); R06.02 Shortness of breath; R00.2 Palpitations; R00.0 Tachycardia, unspecified
CPT/HCPCS: 36415; 71010; 80053; 80162; 83605; 83735; 84484; 85025; 85379; 85610; 93005; 99283

== ENCOUNTER 2018-04-12 07:42 | Emergency (ER) | payer MEDICARE, OTHER ==
--- NOTE | 2018-04-12 08:22 | ED ---
Shortness of Breath - HPI Summary HPI Summary: The pt is an 83 y/o male BIBA c/o of sudden onset SOB from 06:30 this morning. The episode started when taking his HTN medications. His measured wrist BP was elevated and the heart rate was in the 100s prompting him to call EMS. He notes dry mouth, nausea, dull CESPEDES, chest tightness, occasional chills, palpitations but denies CP. The sx were resolved by the time of evaluation. The pt has a MHx of Afib and HTN. - History of Current Complaint Chief Complaint: EDShortnessOfBreath Time Seen by Provider: 04/12/18 07:50 Hx Obtained From: Patient Onset/Duration: Sudden Onset - This AM Current Severity: None Associated Signs & Symptoms: Negative - CP - Allergy/Home Medications Allergies/Adverse Reactions: Allergies Allergy/AdvReac Type Severity Reaction Status Date / Time amoxicillin Allergy Rash Verified 04/12/18 07:52 celecoxib [From Celebrex] Allergy GI Upset Verified 04/12/18 07:52 hydrocodone Allergy GI Upset Verified 04/12/18 07:52 ibuprofen Allergy GI Upset Verified 04/12/18 07:52 naproxen Allergy GI Upset Verified 04/12/18 07:52 Sulfa (Sulfonamide Allergy Unknown Verified 04/12/18 07:52 Antibiotics) Reaction Details PMH/Surg Hx/FS Hx/Imm Hx Previously Healthy: No Endocrine/Hematology History: Denies: Hx Diabetes, Hx Thyroid Disease Cardiovascular History: Reports: Hx Angina, Hx Atrial Fibrillation, Hx Congestive Heart Failure, Hx Coronary Artery Disease, Hx Hypercholesterolemia, Hx Hypotension, Hx Hypertension, Hx Valvular Heart Disease - AORTIC VALVE REPLACEMENT, Other Cardiovascular Problems/Disorders - CAD, HIGH CHOLESTEROL Denies: Hx Myocardial Infarction, Hx Pacemaker/ICD, Hx Peripheral Vascular Disease Respiratory History: Denies: Hx Asthma, Hx Chronic Obstructive Pulmonary Disease (COPD) GI History: Denies: Other GI Disorders History: Reports: Other Problems/Disorders - prostate ca and prostatectomy Denies: Hx Renal Disease Musculoskeletal History: Reports: Hx Back Problems, Other Musculoskeletal History - LAMINECTOMY Denies: Hx Arthritis Sensory History: Reports: Hx Contacts or Glasses - reading, Other Sensory Impairments - CORNEAL LENS IMPLANTS Denies: Hx Hearing Aid Opthamlomology History: Reports: Hx Contacts or Glasses - reading, Other Sensory Impairments - CORNEAL LENS IMPLANTS Neurological History: Denies: Hx Headaches Psychiatric History: Denies: Hx Panic Disorder - Cancer History Cancer Type, Location and Year: PROSTATE 1999 Hx Chemotherapy: No Hx Radiation Therapy: No - Surgical History Surgery Procedure, Year, and Place: RADICAL PROSTATECTOMY-1999, RF ABLATION, RT RCR-1998, CATARACT -LENS REPLACEMENTS, open heart. AORTIC VALVE REPLACEMENT- 2009, BILATERAL CARPAL TUNNEL, LAMINECTOMY 2011 Infectious Disease History: No Infectious Disease History: Reports: Hx Shingles Denies: Traveled Outside the [place] in Last 30 Days - Family History Known Family History: Positive: Other - POS: CVA - Social History Occupation: Retired Lives: With Family Alcohol Use: None Substance Use Type: Reports: None Hx Tobacco Use: No Smoking Status (MU): Never Smoked Tobacco Have You Smoked in the Last Year: No Review of Systems Positive: Chills Positive: Other - Positive: dry mouth Positive: Palpitations. Negative: Chest Pain Positive: Shortness Of Breath, Other - Positive : Chest tightness Positive: Nausea Positive: Headache - Dull All Other Systems Reviewed And Are Negative: Yes Physical Exam - Summary Physical Exam Summary: Appearance: Well appearing, no pain distress Skin: warm, dry, reflects adequate perfusion Head/face: normal Eyes: EOMI, AMY ENT: normal Neck: supple, non-tender Respiratory: CTA, breath sounds present Cardiovascular: Irregularly irregular heart rate , pulses symmetrical Abdomen: non-tender, soft Bowel: present Musculoskeletal: normal, strength/ROM intact Neuro: normal, sensory motor intact, A&Ox3 Triage Information Reviewed: Yes Vital Signs On Initial Exam: Initial Vitals Temp Pulse Resp BP Pulse Ox 97.8 F 78 16 156/75 96 04/12/18 07:44 04/12/18 07:44 04/12/18 07:44 04/12/18 07:44 04/12/18 07:44 Vital Signs Reviewed: Yes Diagnostics - Vital Signs Vital Signs Temp Pulse Resp BP Pulse Ox 04/12/18 07:44 97.8 F 78 16 156/75 96 - Laboratory Result Diagrams: 04/12/18 08:19 04/12/18 08:19 Lab Statement: Any lab studies that have been ordered have been reviewed, and results considered in the medical decision making process. - Radiology CXR Radiology Interpretation Completed By: Radiologist - IMPRESSION: #. No evidence for acute intrathoracic disease. The ED physician reviewed this radiology report. - EKG 08:54 Cardiac Rate: NL - 75 bpm EKG Rhythm: Atrial Fibrillation EKG Interpretation: EKG indicates RBBB Re-Evaluation - Re-Evaluation First Eval Re-Evaluation Time: 12:28 Comment: Discussed the lab and imaging results with the pt. Course/Dx - Course Course Of Treatment: An 83 year-old M presents to the ED with a CC of sudden onset SOB from 06:30 this morning. The episode started when taking is HTN medications. His measured wrist BP was elevated and the heart rate was in the 100s prompting him to call EMS. The pt has a MHx of Afib and HTN. He notes dry mouth, nausea, dull CESPEDES, chest tightness, occasional chills, and palpitations but denies CP. A physical exam revealed an irregularly irregular heart rate. A CXR is negative for acute intra-thoracic disease. An EKG reveals A fib and RBBB. Labs indicate elevated troponin (0.07 and 0.08). In the ED course, pt was given Bumetanide1.5 mg PO, [id number] PO, Digoxin 0.125 mg PO, Metoprolol Tartrate 12.5 mg and Valsartan 20mg PO which improved the symptoms. I discussed the care of the pt with Dr. Jeanette Patterson MD who recommended repeating the troponin test. Dr. Patterson saw the pt in the ED and recommended discharge. The patient will be discharged with a final Dx of elevated troponin and dyspnea. I advised the pt to follow up with a tap out operator outpatient as soon as possible. Pt is agreeable with this plan. - Diagnoses Differential Diagnosis/HQI/PQRI: Positive: CHF, AK, Pneumonia Provider Diagnoses: Elevated troponin, Dyspnea - Physician Notifications Discussed Care of Patient With: Jeanette Patterson - Hospitalist Time Discussed With Above Provider: 09:45 Instructed by Provider To: Other - Dr. Patterson recommended repeating the troponin test. 12:30- Dr. Patterson agreed to see the pt in the ED Discharge - Sign-Out/Discharge Documenting (check all that apply): Patient Departure - DC - Discharge Plan Condition: Improved Disposition: HOME Patient Education Materials: Dyspnea (ED) Referrals: Oswald Morgan MD [Primary Care Provider] - 3 Days Duke Fierro DO [Medical Doctor] - As Soon As Possible (Follow up with the tap out operator as soon as possible for the elevated troponin. ) - Billing Disposition and Condition Condition: IMPROVED Disposition: Home - Attestation Statements Document Initiated by Marcia: Yes Documenting Scribe: Coreen Ayers Provider For Whom Marcia is Documenting (Include Credential): Dr. Allan Rutherford MD Scribe Attestation: ICoreen , scribed for Dr. Allan Rutherford MD on 04/12/18 at 1520. Scribe Documentation Reviewed: Yes Provider Attestation: The documentation as recorded by the Coreen de la cruz accurately reflects the service I personally performed and the decisions made by me, Dr. Allan Rutherford MD
[2018-04-12 08:33] LABS: ABS Basophils 0.1 10^3/ul (0-0.2); ABS Eosinophils 0.4 10^3/ul (0-0.6); ABS Lymphocytes 1.7 10^3/ul (1.0-4.8); ABS Monocytes 0.8 10^3/ul (0-0.8); ABS Neutrophils 4.3 10^3/ul (1.5-7.7); ABS Nucleated RBC 0 10^3/ul; Eosinophil % 5.1 % (0-6); Hematocrit 38 % (42-52); Hemoglobin 13.4 g/dl (14.0-18.0); Lymphocyte % 23.5 % (25-47); Mean Corpuscular HGB Conc 36 g/dl (31-36); Mean Corpuscular Hemoglobin 33 pg (27-31); Mean Corpuscular Volume 91 fL (80-94); Mean Platelet Volume 8.1 um3 (7.4-10.4); Nucleated Red Blood Cells % 0; Platelet Count 183 10^3/ul (150-450); Red Blood Count 4.12 10^6/ul (4.00-5.40); Red Cell Distribution Width 14 % (10.5-15); White Blood Count 7.3 10^3/ul (3.5-10.8)
[2018-04-12 08:40] LABS: INR 1.59 (0.77-1.02)
[2018-04-12 08:58] LABS: EGFR Non-African American 52.3 (>60)
[2018-04-12] MEDS ORDERED: Bumetanide TAB* 1 MG PO SCH (09:00)
--- NOTE | 2018-04-12 09:03 | RAD ---
Indication: Headache. Shortness of breath, chest tightness. Cardiac disease with prior aortic valve replacement. Comparison: May 21, 2017 Technique: Upright AP 0826 hours Report: Mild prominence of the interstitial markings without change. No focal pulmonary lesion, compelling alveolar consolidation, pleural effusion, pneumothorax. Median sternotomy wires. Negative for cardiomegaly. Unremarkable central pulmonary vasculature. IMPRESSION: #. No evidence for acute intrathoracic disease.
[2018-04-12] MEDS ORDERED: Metoprolol Tartrate TAB* 25 MG PO ONE (09:54)
[2018-04-12] MEDS ORDERED: Digoxin TAB* 0.125 MG PO ONE (09:54)
[2018-04-12] MEDS ORDERED: Valsartan TAB* 40 MG PO ONE (09:55)
[2018-04-12] MEDS ORDERED: Dabigatran CAP(NF) 150 MG CAP PO ONE (09:56)
[2018-04-12 14:02] VITALS: BP 128/67
--- NOTE | 2018-04-12 17:16 | CONS ---
CC: Dr. Oswald Morgan; Dr. Vance Moran * CONSULTATION REPORT: DATE OF CONSULT: 04/12/18 - EMERGENCY DEPT PRIMARY CARE PROVIDER: Dr. Oswald Morgan. PRIMARY NUT TIGHTENER: Dr. Vance Moran. ATTENDING PHYSICIAN: Dr. Jeanette Patterson (dictated by Brent Osborn NP). CHIEF COMPLAINT: Shortness of breath with elevated blood pressure and heart rate, dry mouth, and dull headache. HISTORY OF PRESENT ILLNESS: Mr. Uribe is an 83-year-old male with past medical history significant for arthritis, atrial fibrillation, CHF, hypertension, restless legs syndrome, spinal stenosis, gout, hyperlipidemia, hypothyroidism, coronary artery disease, prostate cancer, who states that he has been in his usual state of health. He states that yesterday he had taken clindamycin prior to having some dental work done. He noticed a metallic taste in his mouth since then. He states that he woke up this morning and felt short of breath around 6:30. His checked his blood pressure and noted it to be 180/110 and his heart rate was in the 100s. Additionally, he felt like he had a dry mouth and dull headache. He denied any fevers, chills. He adamantly denies chest pain or discomfort, but reports having a tightness that resolved. When he was having shortness of breath, he felt as though he needed to sit up. He denied any vomiting, nausea, or diaphoresis associated, but due to his symptoms and the fact that his has happened several times over the last few years, he called EMS to be brought to the hospital for further evaluation. It is noted that while on the way to the hospital, he developed nausea, he suspect secondary riding backwards in the ambulance. While in the emergency room, he received Pradaxa, digoxin, Lopressor, Diovan. His blood pressures were normotensive in the 120s to 140s systolically. His heart rate was controlled in the 70s to 80s. He had an EKG showing an AFib and a right bundle branch block and a PVC, mild ST depression in leads V4 to V6 similar to previous EKG from 05/21/17. He had a chest x-ray with no acute findings. He had labs remarkable for slightly elevated above his baseline creatinine of 1.31, troponin of 0.70, and repeat troponin of 0.08, so that appeared to be the patient's baseline troponin. Hospitalists were asked to evaluate the patient in consultation. The patient reports occasional dizziness he suspects secondary to low blood pressure or vertigo. PAST MEDICAL HISTORY: 1. Arthritis. 2. Atrial fibrillation. 3. CHF. 4. Hypertension. 5. Restless legs syndrome. 6. Spinal stenosis. 7. Coronary artery disease. 8. Gout. 9. Hyperlipidemia. 10. Hypothyroidism. 11. Prostate cancer. PAST SURGICAL HISTORY: 1. Status post RF ablation. 2. Status post bilateral carpal tunnel release. 3. Status post radical prostatectomy. 4. Status post cataract extraction. 5. Status post bovine aortic valve replacement. 6. Status post laminectomy. HOME MEDICATIONS: Include: 1. Digoxin 0.125 mg every other day. 2. Digoxin 0.0625 mg oral every other day alternating with the 0.125 mg. 3. Pradaxa 150 mg oral twice daily. 4. Colchicine 1 tablet oral twice daily as needed for gout flare. 5. Vitamin D 1000 units oral every morning. 6. Bumex 1.5 tabs oral daily. 7. Atorvastatin 10 mg oral daily at bedtime. 8. Tramadol 50 mg oral twice daily. 9. Requip 0.5 mg oral twice daily. 10. Levothyroxine 125 mcg oral daily. 11. CoQ10 100 mg oral daily. 12. Spironolactone 25 mg oral every other day. 13. MiraLAX 17 g oral daily at bedtime. 14. Metoprolol tartrate 25 mg oral in the morning, 50 mg oral daily in the evening. ALLERGIES: AMOXICILLIN, CELEBREX, HYDROCODONE, IBUPROFEN, NAPROXEN, and SULFA. FAMILY HISTORY: The patient denies any family history of coronary artery disease, diabetes. Father had a history of Hodgkin's and a sister with a history of lymphoma. Mother with the CVA and brother with Parkinson's. SOCIAL HISTORY: He denies tobacco, alcohol, or recreational drug use. He lives with his at [facility]. His , Jn Uribe, will be his surrogate decision maker in the event he is unable to make decisions for himself. REVIEW OF SYSTEMS: I performed an 11-point review of systems. All the pertinent positives and negatives are mentioned in the history of present illness. The remaining review of systems are negative. PHYSICAL EXAM: Vital Signs: Temperature 97.8, heart rate 78, respiratory rate 17, O2 sat 95% on room air, blood pressure 144/72. General Appearance: The patient is alert, pleasant, and appears to be in no acute distress. HEENT: Normocephalic, atraumatic. Pupils are equal and reactive to light. Extraocular movements are intact. Respiratory: There is no accessory muscle use. The lungs are clear to auscultation bilaterally. Cardiovascular: Regular rate and rhythm. S1, S2 present. There are no murmurs, rubs, or gallops heard. Abdomen : Soft, large. There are bowel sounds present x4. Extremities: There is no lower extremity edema. DP and PT pulses are 2+ and symmetric. Musculoskeletal : There is no clubbing or cyanosis noted. The patient exhibits good strength in all extremities. Neurological: He is alert and oriented x4. Cranial nerves II through XII are grossly intact. Psychological: The patient is calm and cooperative. Skin: There are no rashes or abnormalities seen. DIAGNOSTIC STUDIES/LAB DATA: Sodium 132, potassium 4.2, chloride 98, CO2 28, BUN 19, creatinine 1.31, glucose 115. White blood cell count of 7.3, hemoglobin 13.4, hematocrit 38, platelet count 183. INR 1.59. Troponin 0.07 and 0.08. EKG shows an atrial fibrillation, rate of 75, right bundle branch block, and PVC. There is minimal ST depression in V4 to V6 that is similar to previous EKG from 05/21/17. Chest x-ray from today. Radiologist's impression: No evidence for acute intrathoracic disease. IMPRESSION: Mr. Uribe is an 83-year-old male with past medical history significant for coronary artery disease, arthritis, atrial fibrillation, congestive heart failure, hypertension, restless legs syndrome, spinal stenosis , gout, hyperlipidemia, hypothyroidism, prostate cancer, who presented to the emergency room with complaints of shortness of breath, elevated blood pressure and headache. Hospitalists were asked to evaluate the patient in consultation. ASSESSMENT/PLAN: 1. Shortness of breath and chest tightness. I suspect this could have been secondary to the patient's hypertension. His symptoms have resolved in the emergency room after taking his morning medications. He is noted to have elevated troponin of 0.08 and 0.07. This is consistent with what appears to be the patient's baseline elevated troponin of 0.07 to 0.11. I suspect he chronically has an elevated troponin secondary to renal insufficiency. The patient has no changes in his EKG. He is requesting to be discharged and will follow up with Dr. Morgan and Dr. Moran. 2. Atrial fibrillation. The patient's rate is currently controlled. He will continue his digoxin, Pradaxa, and metoprolol. 3. Hypertension. The patient is currently normotensive. He will continue on his home metoprolol. 4. Heart failure. The patient will continue on his home spironolactone and Bumex. 5. Hyperlipidemia. He will be continued on his home atorvastatin. 6. Hypothyroidism. His last TSH was 3.80 on 02/03/18. He will be continued on his current home dose. 7. Restless legs syndrome. He will be continued on his home Requip. 8. Spinal stenosis. He will continue to take his tramadol as needed. 9. Gout. Continue on colchicine as needed for gout flare. 10. Fluids, electrolytes, and nutrition: Low-sodium diet. 11. Code status: Full code. 12. DVT prophylaxis: None as the patient will be discharged and encouraged to ambulate. 13. Disposition: The patient would like to be discharged and he will be discharged from the emergency room with plans to follow up with his primary, Dr. Morgan and goat driver, Dr. Moran. TIME SPENT: Time for this consultation was approximately 60 minutes, greater than half of that was spent with the patient and discussing medications, past medical history, the events leading up to his arrival today, and performing a physical examination. The case has been reviewed with the attending , Dr. Patterson, who agrees with the plan of care. BRENT OSBORN, LÁZARO [id number]/[facility] #: [id number] KATIE
== END 2018-04-12 14:02 | disposition home or self-care (01) ==
LOC: ED 07:42
DX: R06.00 Dyspnea, unspecified (principal); I10 Essential (primary) hypertension; R79.89 Other specified abnormal findings of blood chemistry
CPT/HCPCS: 36415; 71045; 80053; 83880; 84484; 85025; 85610; 85730; 93005; 99283; A9270-GY

== ENCOUNTER 2019-08-10 14:03 | Emergency (ER) | payer MEDICARE, OTHER ==
--- OUTSIDE RECORDS SUMMARY | 2019-08-10 14:19 | XMS REPORT | Summary of Care ---
:1935 Author Organization [facility] Address [address] [facility] [place] [address] Care Team Providers Name Role Phone Tiffanie Hernandezkris Jackson OD Primary Insulator Tester/Last Turner Gianluca Manning MD Secondary Insulator Tester/Last Turner Oswald Morgan Primary Care Provider Norma Allen DIPLOMATIC COURIER Nurse Practitioner Primary Care Reason for Visit Reason Comments CHF f/u: saw shipping and receiving associate (Dean) last week Labs Only last done 06/25 and 06/01/19 Derm Problem psoriasis acting up; scheduled to see derm next week Encounter Details Date Type Department Care Team Description 06/30/2019 Office Visit Oswald Solares MD Congestive heart failure, unspecified HF chronicity, unspecified heart failure type (HCC) (Primary Dx); [address] [facility] [address] [facility] Chronic atrial fibrillation; [place] [address] [place] [address] Essential (primary) hypertension; [phone] Hypothyroidism due to acquired atrophy of thyroid Allergies Active Allergy Reactions Severity Noted Date Comments Aleve Other 06/30/2019 Celecoxib GI Reaction 02/01/2011 Hydrocodone GI Reaction 02/01/2011 Ibuprofen Other 06/30/2019 Aspartame-Ibuprofen GI Reaction 02/01/2011 Penicillin G Other 06/30/2019 Sulfa Antibiotics Other 02/01/2011 documented as of this encounter (statuses as of 07/05/2019) Medications Medication Sig Dispensed Refills Start Date End Date Status Polyethyl Place to the 0 Active Glycol-Propyl Glycol external eye (SYSTANE OP) DAILY NEEDED. cholecalciferol Take 1,000 0 Active (VITAMIN D) 1000 Units by UNITS Oral Tab mouth. polyethylene glycol Take 17 g by 0 Active (MIRALAX) Oral Powder mouth DAILY. hydrocortisone Apply to 28 g 5 05/09/2017 Active (HYTONE) 2.5 % Apply affected areas externally daily, as CreamIndications: needed. Balanitis triamcinolone Apply to 45 g 5 07/19/2017 Active (KENALOG,ARISTOCORT) affected areas 0.1 % Apply bid PRN for externally Cream pruritus PRADAXA 150 MG Oral TAKE ONE 60 Cap 11 07/22/2018 Active Cap CAPSULE BY MOUTH TWICE A DAY MAG64 64 MG Oral Tab TAKE ONE 30 Tab 11 07/22/2018 Active EC TABLET BY MOUTH EVERY DAY levothyroxine TAKE ONE 30 Tab 11 07/22/2018 Active (SYNTHROID) 125 MCG TABLET BY Oral Tab MOUTH EVERY DAY BEFORE BREAKFAST valsartan (DIOVAN) 40 Take 1 Tab by 90 Tab 3 10/06/2018 Active MG Oral Tab mouth DAILY. colchicine Take 1 Tab by 20 Tab 5 10/23/2018 Active (COLSALIDE) 0.6 MG mouth TWO Oral Tab TIMES DAILY NEEDED (for gout). tramadol (ULTRAM) 50 TAKE ONE 90 Tab 5 12/31/2018 Active MG Oral Tab TABLET BY MOUTH EVERY 4 HOURS NEEDED FOR PAIN MAXIMUM DAILY DOSE = 6 fluticasone (FLONASE) [place] 2 Sprays 0 Active 50 MCG/ACT Nasal in nose DAILY. Suspension clobetasol (TEMOVATE) by Topical 0 Active 0.05 % Apply route DAILY externally Cream NEEDED. ketoconazole 1 Appl by 0 Active (NIZORAL) 2 % Apply Topical route externally Cream NEEDED. ropinirole (REQUIP) Take 0.5 mg by 270 Tab 3 04/07/2019 Active 0.5 MG Oral Tab mouth THREE TIMES DAILY. atorvastatin TAKE ONE 30 Tab 11 06/25/2019 Active (LIPITOR) 10 MG Oral TABLET BY Tab MOUTH AT BEDTIME bumetanide (BUMEX) 1 TAKE 1 & 1/2 45 Tab 11 06/25/2019 Active MG Oral Tab TABLETS BY MOUTH ONCE DAILY spironolactone Take 1 Tab by 45 Tab 3 06/25/2019 Active (ALDACTONE) 25 MG mouth EVERY Oral Tab OTHER DAY. metoprolol TAKE 1/2 45 Tab 11 07/22/2018 Discontinued (LOPRESSOR) 50 MG TABLET IN THE 9 Oral Tab MORNING AND 1 TABLET IN THE EVENING DAILY atorvastatin Take 1 Tab by 30 Tab 11 06/25/2019 Discontinued (LIPITOR) 10 MG Oral mouth DAILY. 9 Tab bumetanide (BUMEX) 1 Take 1 Tab by 45 Tab 11 06/25/2019 Discontinued MG Oral Tab mouth DAILY. 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 Status post laser cataract surgery of right eye 04/16/2017 Acne rosacea 03/01/2016 Heart disease 03/01/2016 Hypermetropia of both eyes Regular astigmatism of both eyes Presbyopia Pseudophakia Chalazion of left eye Overview: UPPER LID Posterior vitreous detachment of both eyes Chronic atrial fibrillation Hypothyroidism Gout High cholesterol Essential (primary) hypertension Restless leg syndrome Peripheral neuropathy Prostate cancer CHF (congestive heart failure) Hypokalemia SCC (squamous cell carcinoma), arm, right documented as of this encounter (statuses as of 07/05/2019) Resolved Problems Problem Noted Date Resolved Date High blood pressure 03/01/2016 09/27/2016 Hypertensive retinopathy of right eye 03/02/2016 Combined forms of age-related cataract of left eye 04/19/2016 Overview: OU documented as of this encounter (statuses as of 07/05/2019) Immunizations Name Administration Dates Next Due Influenza Vaccine High Dose 05/16/2019, 05/15/2018, 05/22/2017, 05/12/2016 Kenalog (60mg) 02/01/2011 PNEUMOCOCCAL POLYSACCHARIDE VACCINE 06/27/2005 Pneumococcal Conjugate Vaccine 07/19/2016 TDAP Vaccine 09/13/2017 documented as of this encounter Social History Tobacco Use Types Packs/Day Years Used Date Never Smoker 0 Smokeless Tobacco: Never Used Alcohol Use Drinks/Week oz/Week Comments No Sex Assigned at Date Recorded Not on file Job Start Date Occupation Industry Not on file Not on file Not on file Travel History Travel Start Travel End No recent travel history available. documented as of this encounter Last Filed Vital Signs Vital Sign Reading Time Taken Comments Blood Pressure 128/58 06/30/2019 6:22 PM EST Pulse 70 06/30/2019 6:22 PM EST Temperature - - Respiratory Rate - - Oxygen Saturation - - Inhaled Oxygen Concentration - - Weight 108.4 kg (239 lb) 06/30/2019 6:22 PM EST Height 182.9 cm (6') 06/30/2019 6:22 PM EST Body Mass Index 32.41 06/30/2019 6:22 PM EST documented in this encounter Progress Notes Oswald Morgan MD - 06/30/2019 6:10 PM EST PATIENT: Arnol Uribe : 1935 DATE OF SERVICE: 06/30/2019 CHIEF COMPLAINT: Chief Complaint Patient presents with CHF f/u: saw shipping and receiving associate (Dean) last week Labs Only last done 06/25 and 06/01/19 Derm Problem psoriasis acting up; scheduled to see derm next week Subjective HISTORY OF PRESENT ILLNESS: Arnol Uribe is a 84-y.o. male. HPI He returns in follow-up of heart failure and chronic atrial fibrillation on anticoagulation therapy. [facility] the [facility] and needed to take extra diuretics at that time. He is not sure if perhaps he had more salt in his diet because of eating out of the home. He saw Dr. Moran several days ago his Bumex dose was increased to 2 mg a day. He also uses metolazone 2 potential 8 the effects of the Bumex. He used it on average 1 time a week. He had a bad tooth and an x-ray showed an abscess but with antibiotics it was resolved. He had lab work showing unremarkable CBC except for H&H slightly low at 12.2 and 36 serum chemistries unremarkable except for creatinine slightly elevated at 1.18. Sodium was 133. TSH normal, cholesterol 136 HDL 43.6 LDL 72 PSA undetectable. Past Medical History: Diagnosis Date Arthritis Atrial fibrillation (HCC) CHF (congestive heart failure) (HCC) Combined forms of age-related cataract of left eye Essential (primary) hypertension Gout High cholesterol Hypokalemia Hypothyroidism Irregular heart beat Peripheral neuropathy Prostate cancer (HCC) Restless leg syndrome SCC (squamous cell carcinoma), arm, right Surgery, elective Family History Problem Relation Age of Onset Stroke Mother Cancer Father Hodgkins Cancer Sister lymphoma Parkinson's Brother Current Outpatient Medications Medication Sig atorvastatin (LIPITOR) 10 MG Oral Tab TAKE ONE TABLET BY MOUTH AT BEDTIME bumetanide (BUMEX) 1 MG Oral Tab TAKE 1 & 1/2 TABLETS BY MOUTH ONCE DAILY cholecalciferol (VITAMIN D) 1000 UNITS Oral Tab Take 1,000 Units by mouth. clobetasol (TEMOVATE) 0.05 % Apply externally Cream by Topical route DAILY NEEDED. colchicine (COLSALIDE) 0.6 MG Oral Tab Take 1 Tab by mouth TWO TIMES DAILY NEEDED (for gout). fluticasone (FLONASE) 50 MCG/ACT Nasal Suspension [place] 2 Sprays in nose DAILY. hydrocortisone (HYTONE) 2.5 % Apply externally Cream Apply to affected areas daily, as needed. ketoconazole (NIZORAL) 2 % Apply externally Cream 1 Appl by Topical route NEEDED. levothyroxine (SYNTHROID) 125 MCG Oral Tab TAKE ONE TABLET BY MOUTH EVERY DAY BEFORE BREAKFAST MAG64 64 MG Oral Tab EC TAKE ONE TABLET BY MOUTH EVERY DAY Polyethyl Glycol-Propyl Glycol (SYSTANE OP) Place to the external eye DAILY NEEDED. polyethylene glycol (MIRALAX) Oral Powder Take 17 g by mouth DAILY. PRADAXA 150 MG Oral Cap TAKE ONE CAPSULE BY MOUTH TWICE A DAY ropinirole (REQUIP) 0.5 MG Oral Tab Take 0.5 mg by mouth THREE TIMES DAILY. spironolactone (ALDACTONE) 25 MG Oral Tab Take 1 Tab by mouth EVERY OTHER DAY. tramadol (ULTRAM) 50 MG Oral Tab TAKE ONE TABLET BY MOUTH EVERY 4 HOURS NEEDED FOR PAIN MAXIMUM DAILY DOSE = 6 triamcinolone (KENALOG,ARISTOCORT) 0.1 % Apply externally Cream Apply to affected areas bid PRN for pruritus valsartan (DIOVAN) 40 MG Oral Tab Take 1 Tab by mouth DAILY. No current facility-administered medications for this visit. Allergies Allergen Reactions Aleve Other Celebrex [Celecoxib] GI Reaction Hydrocodone GI Reaction Ibuprofen Other Ibuprofen [Aspartame-Ibuprofen] GI Reaction Penicillin G Other Sulfa Antibiotics Other Social History Socioeconomic History Marital status: Spouse name: Not on file Number of children: Not on file Years of education: Not on file Highest education level: Not on file Occupational History Not on file Social Needs Financial resource strain: Not on file Food insecurity: Worry: Not on file Inability: Not on file Transportation needs: Medical: Not on file Non-medical: Not on file Tobacco Use Smoking status: Never Smoker Smokeless tobacco: Never Used Substance and Sexual Activity Alcohol use: No Drug use: No Sexual activity: Not on file Lifestyle Physical activity: Days per week: Not on file Minutes per session: Not on file Stress: Not on file Relationships Social connections: Talks on phone: Not on file Gets together: Not on file Attends confucianist service: Not on file Active member of club or organization: Not on file Attends meetings of clubs or organizations: Not on file Relationship status: Not on file Intimate partner violence: Fear of current or ex partner: Not on file Emotionally abused: Not on file Physically abused: Not on file Forced sexual activity: Not on file Other Topics Concern Not on file Social History Narrative Not on file REVIEW OF SYSTEMS: Review of Systems Constitutional: Negative for fever, malaise/fatigue and weight loss. HENT: Negative for congestion. Eyes: Negative for blurred vision. Respiratory: Positive for shortness of breath. Cardiovascular: Positive for leg swelling. Negative for chest pain. Gastrointestinal: Negative for abdominal pain. Genitourinary: Negative for frequency. Musculoskeletal: Negative for joint pain. Skin: Negative for rash. Neurological: Negative for dizziness, seizures, loss of consciousness and headaches. Endo/Heme/Allergies: Negative for polydipsia. Psychiatric/Behavioral: Negative. Objective PHYSICAL EXAM: VITALS: BP 128/58 | Pulse 70 | Ht 6' (1.829 m) | Wt 239 lb (108.4 kg) | BMI 32.41 kg/m Body mass index is 32.41 kg/m. Physical Exam Alert, oriented, in no acute distress. Vitals as above. HEENT: unremarkable. Neck: No palpable lymphadenopathy in the submandibular, submental, anterior cervical, posterior cervical, or occipital chains, nor in the supraclavicular spaces. No JVD, thyromegaly. LUNGS: clear. HEART: Irregular EXTREMITIES: no cyanosis, clubbing, but with trace edema. ASSESSMENT / IMPRESSION: ICD-9-CM ICD-10-CM 1. Congestive heart failure, unspecified HF chronicity, unspecified heart failure type (HCC) 428.0 I50.9 2. Chronic atrial fibrillation 427.31 I48.20 3. Essential (primary) hypertension 401.9 I10 4. Hypothyroidism due to acquired atrophy of thyroid 244.8 E03.4 246.8 His congestive heart failure is compensated, his atrial fibrillation is with controlled ventricular rate, his hypertension is controlled and his hypothyroidism is treated. Continue his same medications and follow-up in 3 months at which time we will draw CBC and comprehensive profile to assess his atrial fibrillation and congestive heart failure. Author: Oswald Morgan MD 07/05/2019 19:20 documented in this encounter Plan of Treatment Date Type Specialty Care Team Description 09/29/2019 Office Visit Internal Medicine Oswald Morgan MD [address] [place] [address] [phone] 06/17/2020 Ocular Visit Optometry Peggy Hernandez, OD [address] [place] [address] [phone] Health Maintenance Due Date Last Done Comments MEDICARE ANNUAL WELLNESS 1935 VISIT ZOSTER IMMUNIZATION SERIES 1985 (1 of 2) DEPRESSION SCREENING 02/25/2020 02/24/2019 FALL RISK ASSESSMENT 03/31/2020 03/31/2019, 03/31/2019 PNEUMOCOCCAL 65+YRS Completed 07/19/2016, 06/27/2005 INFLUENZA VACCINE Completed 05/16/2019, 05/15/2018, 05/22/2017, Additional history exists HPV IMMUNIZATION SERIES Aged Out No longer eligible based on patient's age to complete this topic MENINGOCOCCAL VACCINE IMM Aged Out No longer eligible based on patient's age to complete this topic documented as of this encounter Goals Goal Patient Goal Associated Recent Patient-Stated? Author Type Problems Progress Blood Pressure Blood Pressure 128/58 No Eddie, < 150/90 (06/30/2019 MD Oswald 6:22 PM EST) Note: This is an individualized treatment (blood pressure) goal for Arnol Uribe: Displayed above (on the left) is your goal for blood pressure control. Your most recent blood pressure is also shown above, on the right. You should try to achieve blood pressures that are lower than your goal listed above (on the left). Weight increase vs. 18 mo min CHF 4 (06/30/2019 6:22 PM EST) Oswald Irwin MD (lbs) < 5 Note: This is an individualized treatment (congestive heart failure, CHF) goal for Arnol Uribe: Displayed above (on the right) is how many pounds you are in excess of your lowest weight over the past 18 months. Note that lower numbers are better. Excessive weight gain often indicates fluid reten tion and worsening heart failure. You should contact your doctor immediately if the above number is too high (above your goal, the number on the left). Consume a [id number] diet Lifestyle Oswald Irwin MD Note: This is an individualized lifestyle goal for Arnol Uribe: Please do not add additional salt to your food. Additional salt may lead to fluid retention and worsen your congestive heart failure. Take all prescribed medications as directed Self-management Oswald Irwin MD Note: This is an individualized self-management goal for Arnol Uribe: Please take all prescribed medications as directed. 1. Do not skip doses. If you cannot afford your medications, talk with your doctor. 2. Use a pill reminder system such as a pill box if needed. Your pharmacist can help you with this. 3. Contact your Pharmacy 5 days before your medication runs out. If you cannot take your medications for any reasons, talk with your doctor. 4. Please bring all of your medication bottles and inhalers (or a list of all your medications/inhalers) with you to every visit. Potential barriers to meeting all of your care plan goals will continue to be addressed on an ongoing basis. Check your weight daily Self-management Oswald Irwin MD Note: This is an individualized self-management goal for Arnol Uribe: Please check your weight daily. Refer to the accompanying CHF treatment goal and call your doctor immediately for further instructions on how to respond to unexpected weight gain. documented as of this encounter Results Not on filedocumented in this encounter Visit Diagnoses Diagnosis Congestive heart failure, unspecified HF chronicity, unspecified heart failure type (HCC) - Primary Chronic atrial fibrillation Atrial fibrillation Essential (primary) hypertension Unspecified essential hypertension Hypothyroidism due to acquired atrophy of thyroid documented in this encounter Insurance Payer Benefit Plan / Subscriber ID Effective Dates Phone Address Type Group MEDICARE MEDICARE PART A xxxxxxxxxxx 1999-Present Medicare & B [employer] COMMERCIAL A[employer] xxxxxxxxxx 2000-Mandeep de souza Guarantor Name Account Type Relation to Date of Phone Billing Patient Address Arnol Uribe Personal/Family 1935 [phone] [address] (Home) Sriram [place]amilla [phone] [place], [place] (Work) [address] documented as of this encounter"
[2019-08-10 14:42] LABS: ABS Basophils 0.1 10^3/ul (0-0.2); ABS Eosinophils 0.2 10^3/ul (0-0.6); ABS Lymphocytes 2.3 10^3/ul (1.0-4.8); ABS Monocytes 0.9 10^3/ul (0-0.8); ABS Neutrophils 6.5 10^3/ul (1.5-7.7); Eosinophil % 2.1 %; Hematocrit 35 % (42-52); Hemoglobin 12.2 g/dL (14.0-18.0); Lymphocyte % 23.2 %; Mean Corpuscular HGB Conc 34 g/dL (31-36); Mean Corpuscular Hemoglobin 31 pg (27-31); Mean Corpuscular Volume 90 fL (80-94); Mean Platelet Volume 8.5 fL (7.4-10.4); Platelet Count 223 10^3/uL (150-450); Red Blood Count 3.92 10^6 /uL (4.18-5.48); Red Cell Distribution Width 15 % (10-15); White Blood Count 9.9 10^3/uL (3.5-10.8)
[2019-08-10 15:00] LABS: ALT 10 U/L (7-52); AST 20 U/L (13-39); Albumin 4.1 g/dL (3.2-5.2); Alkaline Phosphatase 77 U/L (34-104); Anion Gap 8 mmol/L (2-11); BUN/Creatinine Ratio 21.7 (8-20); Blood Urea Nitrogen 33 mg/dL (6-24); CO2 Carbon Dioxide 28 mmol/L (22-32); Calcium 9.4 mg/dL (8.6-10.3); Chloride 95 mmol/L (101-111); EGFR African American 53.1 (>60); EGFR Non-African American 43.9 (>60); Globulin 4.1 g/dL (2-4); Glucose 109 mg/dL (70-100); Magnesium 1.8 mg/dL (1.9-2.7); Potassium 4.4 mmol/L (3.5-5.0); Sodium 131 mmol/L (135-145); Total Protein 8.2 g/dL (6.4-8.9)
[2019-08-10 15:07] LABS: Troponin I 0.12 ng/mL (<0.03)
[2019-08-10] MEDS ORDERED: Furosemide TAB* 20 MG PO ONE ×3 (15:34→15:51)
--- NOTE | 2019-08-10 15:36 | ED ---
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 Patient states he was sent by Dr. Tamayo to have his labs checked and possibly get diuretics for possible CHF exacerbation. Patient reports swollen ankles but no shortness of breath, abdominal pain, chest pain. Patient has no other complaints at this time. Patient is resting comfortably on stretcher. Family history and social history are noncontributory. - History Of Current Complaint Chief Complaint: EDGeneral Time Seen by Provider: 08/10/19 14:36 Hx Obtained From: Patient Onset/Duration: Gradual Onset Timing: Constant Severity Currently: Mild Severity Initially: Mild Associated Signs And Symptoms: Negative: SOB, Cough, Chest Pain, Abdominal Pain , Back Pain, Fever - Allergies/Home Medications Allergies/Adverse Reactions: Allergies Allergy/AdvReac Type Severity Reaction Status Date / Time amoxicillin Allergy Rash Verified 08/10/19 15:10 Sulfa (Sulfonamide Allergy Unknown Verified 08/10/19 15:10 Antibiotics) Reaction Details celecoxib [From Celebrex] AdvReac GI Upset Verified 08/10/19 15:10 hydrocodone AdvReac GI Upset Verified 08/10/19 15:10 ibuprofen AdvReac GI Upset Verified 08/10/19 15:10 naproxen AdvReac GI Upset Verified 08/10/19 15:10 PMH/Surg Hx/FS Hx/Imm Hx Endocrine/Hematology History: Denies: Hx Diabetes, Hx Thyroid Disease Cardiovascular History: Reports: Hx Angina, Hx Atrial Fibrillation, Hx Congestive Heart Failure, Hx Coronary Artery Disease, Hx Hypercholesterolemia, Hx Hypotension, Hx Hypertension, Hx Valvular Heart Disease - AORTIC VALVE REPLACEMENT, Other Cardiovascular Problems/Disorders - CAD, HIGH CHOLESTEROL Denies: Hx Myocardial Infarction, Hx Pacemaker/ICD, Hx Peripheral Vascular Disease Respiratory History: Denies: Hx Asthma, Hx Chronic Obstructive Pulmonary Disease (COPD) GI History: Denies: Hx Ulcer, Other GI Disorders History: Reports: Other Problems/Disorders - prostate ca and prostatectomy Denies: Hx Renal Disease Musculoskeletal History: Reports: Hx Back Problems, Other Musculoskeletal History - LAMINECTOMY Denies: Hx Arthritis Sensory History: Reports: Hx Contacts or Glasses - reading, Other Sensory Impairments - CORNEAL LENS IMPLANTS Denies: Hx Hearing Aid Opthamlomology History: Reports: Hx Contacts or Glasses - reading, Other Sensory Impairments - CORNEAL LENS IMPLANTS Neurological History: Denies: Hx Headaches Psychiatric History: Denies: Hx Panic Disorder - Cancer History Cancer Type, Location and Year: PROSTATE 1999 Hx Chemotherapy: No Hx Radiation Therapy: No - Surgical History Surgery Procedure, Year, and Place: RADICAL PROSTATECTOMY-1999, RF ABLATION, RT RCR-1998, CATARACT -LENS REPLACEMENTS, open heart. AORTIC VALVE REPLACEMENT- 2009, BILATERAL CARPAL TUNNEL, LAMINECTOMY 2011 Infectious Disease History: No Infectious Disease History: Reports: Hx Shingles Denies: Hx Hepatitis, Hx Human Immunodeficiency Virus (HIV), Traveled Outside the [place] in Last 30 Days - Family History Known Family History: Positive: Hypertension, Other - POS: CVA - Social History Alcohol Use: Occasionally Substance Use Type: Reports: None Hx Tobacco Use: No Smoking Status (MU): Never Smoked Tobacco Have You Smoked in the Last Year: No Review of Systems Constitutional: Negative Eyes: Negative ENT: Negative Cardiovascular: Negative Respiratory: Negative Gastrointestinal: Negative Genitourinary: Negative Positive: Edema - trace edema noted to the bilateral lower extremities. Skin: Negative Neurological: Negative Psychological: Normal All Other Systems Reviewed And Are Negative: Yes Physical Exam Triage Information Reviewed: Yes Vital Signs On Initial Exam: Initial Vitals Temp Pulse Resp BP Pulse Ox 99.0 F 77 18 145/61 97 08/10/19 14:05 08/10/19 14:05 08/10/19 14:05 08/10/19 14:05 08/10/19 14:05 Vital Signs Reviewed: Yes Appearance: Positive: Well-Appearing, No Pain Distress, Well-Nourished Skin: Positive: Warm, Skin Color Reflects Adequate Perfusion Eyes: Positive: EOMI, AMY ENT: Positive: Hearing grossly normal Respiratory/Lung Sounds: Positive: Clear to Auscultation, Breath Sounds Present Cardiovascular: Positive: IRR, Murmur, S1, S2 Abdomen Description: Positive: Nontender, No Organomegaly, Soft, Distended. Negative: Guarding Bowel Sounds: Positive: Present Musculoskeletal: Positive: Strength/ROM Intact Neurological: Positive: Sensory/Motor Intact, Alert, Oriented to Person Place, Time, Normal Gait, Facial Symmetry, Speech Normal Psychiatric: Positive: Normal AVPU Assessment: Alert Procedures - Sedation Patient Received Moderate/Deep Sedation with Procedure: No Diagnostics - Vital Signs Vital Signs Temp Pulse Resp BP Pulse Ox 08/10/19 14:05 99.0 F 77 18 145/61 97 - Laboratory Lab Results: Lab Results 08/10/19 08/10/19 08/10/19 Range/Units 14:31 14:31 14:31 WBC 9.9 (3.5-10.8) 10^3/uL RBC 3.92 L (4.18-5.48) 10^6 /uL Hgb 12.2 L (14.0-18.0) g/dL Hct 35 L (42-52) % MCV 90 (80-94) fL MCH 31 (27-31) pg MCHC 34 (31-36) g/dL RDW 15 (10-15) % Plt Count 223 (150-450) 10^3/uL MPV 8.5 (7.4-10.4) fL Neut % (Auto) 65.1 % Lymph % (Auto) 23.2 % [place] % (Auto) 9.0 % Eos % (Auto) 2.1 % Baso % (Auto) 0.6 % Absolute Neuts (auto) 6.5 (1.5-7.7) 10^3/ul Absolute Lymphs (auto) 2.3 (1.0-4.8) 10^3/ul Absolute Monos (auto) 0.9 H (0-0.8) 10^3/ul Absolute Eos (auto) 0.2 (0-0.6) 10^3/ul Absolute Basos (auto) 0.1 (0-0.2) 10^3/ul Absolute Nucleated RBC 0.0 10^3/ul Nucleated RBC % 0.0 Sodium 131 L (135-145) mmol/L Potassium 4.4 (3.5-5.0) mmol/L Chloride 95 L (101-111) mmol/L Carbon Dioxide 28 (22-32) mmol/L Anion Gap 8 (2-11) mmol/L BUN 33 H (6-24) mg/dL Creatinine 1.52 H (0.67-1.17) mg/dL Est GFR ( Amer) 53.1 (>60) Est GFR (Non-Af Amer) 43.9 (>60) BUN/Creatinine Ratio 21.7 H (8-20) Glucose 109 H (70-100) mg/dL Lactic Acid (0.5-2.0) mmol/L Calcium 9.4 (8.6-10.3) mg/dL Magnesium 1.8 L (1.9-2.7) mg/dL Total Bilirubin 0.60 (0.2-1.0) mg/dL AST 20 (13-39) U/L ALT 10 (7-52) U/L Alkaline Phosphatase 77 (34-104) U/L Troponin I 0.12 H* (<0.03) ng/mL B-Natriuretic Peptide 271 H (<=100) pg/mL Total Protein 8.2 (6.4-8.9) g/dL Albumin 4.1 (3.2-5.2) g/dL Globulin 4.1 H (2-4) g/dL Albumin/Globulin Ratio 1.0 (1-3) 08/10/ Range/Units 14:31 WBC (3.5-10.8) 10^3/uL RBC (4.18-5.48) 10^6 /uL Hgb (14.0-18.0) g/dL Hct (42-52) % MCV (80-94) fL MCH (27-31) pg MCHC (31-36) g/dL RDW (10-15) % Plt Count (150-450) 10^3/uL MPV (7.4-10.4) fL Neut % (Auto) % Lymph % (Auto) % [place] % (Auto) % Eos % (Auto) % Baso % (Auto) % Absolute Neuts (auto) (1.5-7.7) 10^3/ul Absolute Lymphs (auto) (1.0-4.8) 10^3/ul Absolute Monos (auto) (0-0.8) 10^3/ul Absolute Eos (auto) (0-0.6) 10^3/ul Absolute Basos (auto) (0-0.2) 10^3/ul Absolute Nucleated RBC 10^3/ul Nucleated RBC % Sodium (135-145) mmol/L Potassium (3.5-5.0) mmol/L Chloride (101-111) mmol/L Carbon Dioxide (22-32) mmol/L Anion Gap (2-11) mmol/L BUN (6-24) mg/dL Creatinine (0.67-1.17) mg/dL Est GFR ( Amer) (>60) Est GFR (Non-Af Amer) (>60) BUN/Creatinine Ratio (8-20) Glucose (70-100) mg/dL Lactic Acid 1.0 (0.5-2.0) mmol/L Calcium (8.6-10.3) mg/dL Magnesium (1.9-2.7) mg/dL Total Bilirubin (0.2-1.0) mg/dL AST (13-39) U/L ALT (7-52) U/L Alkaline Phosphatase (34-104) U/L Troponin I (<0.03) ng/mL B-Natriuretic Peptide (<=100) pg/mL Total Protein (6.4-8.9) g/dL Albumin (3.2-5.2) g/dL Globulin (2-4) g/dL Albumin/Globulin Ratio (1-3) Result Diagrams: 08/10/19 14:31 08/10/19 14:31 Lab Statement: Any lab studies that have been ordered have been reviewed, and results considered in the medical decision making process. Complex Multi-Symp Course/Dx Course Of Treatment: Patient was evaluated in the emergency department for weight gain. Laboratory studies were obtained which showed no evidence of leukocytosis with a white blood for count is 9.9.patient is mildly anemic with an H&H of 12.2/35, this is his baseline. Patient is mildly hyponatremic at 131 , hypomagnesemic at 1.8, slightly elevated BUN/creatinine/creatinine at 33/1.5 to which is also a chronic finding for him. BNP is 271, troponin is 0.12 which is elevated but also the patients baseline. Patients troponin is slightly higher than it has been in the past however he has a history of chronically elevated troponins. Patient does not endorse any chest pain, abdominal pain, shortness of breath. patient was given 40 mg of Lasix in the emergency department for congestive heart failure. Chest x-ray shows no active cardiopulmonary disease including pulmonary congestion. EKG shows sinus rhythm at 61 bpm. Normal intervals. Normal axis. Right bundle branch block is appreciated. No evidence of STEMI. These EKG findings are unchanged when compared to prior EKG done in February 16, 2019. Dr. Fierro, cardiology, was consulted and requested to have medicine consulted on the case. Dr. Darby, medicine, was consulted and suggested the patient be hospitalized for observation due to elevated troponin. It was explained to the patient that we found it was in his best interest to be admitted to the hospital for observation to rule out myocardial infarction. Patient is of sound mind to make his own medical decisions and chose to leave AGAINST MEDICAL ADVICE. The risks of this decision were explained to the patient such as myocardial infarction and . Patient continued to want to leave AGAINST MEDICAL ADVICE. - Diagnoses Differential Diagnoses/HQI/PQRI: Other - CHF, ACS, metabolic abnormality, hyponatremia, hypomagnesemia Provider Diagnoses: Acute exacerbation of congestive heart failure - Physician Notifications Discussed Care Of Patient With: Duke Fierro - floorworker wanted hospitalist team to be consulted for disposition Discharge ED - Sign-Out/Discharge Documenting (check all that apply): Patient Departure - Discharge Plan Condition: Stable Disposition: AGAINST MEDICAL ADVICE Referrals: Oswald Morgan MD [Primary Care Provider] - - Billing Disposition and Condition Condition: STABLE Disposition: Against Medical Advice - Attestation Statements Provider Attestation: I was available for consult. This patient was seen by the JU[facility]. The patient was not presented to, seen by, or examined by me. Aleksey Tony MD Consult Consult: Dr. Darby, medicine consulted and believed the patient should be admitted for observation due to elevation in troponin to rule out cardiac pathology such as myocardial infarction.
[2019-08-10 16:09] VITALS: BP 127/52
== END 2019-08-10 16:22 | disposition left against medical advice (07) ==
LOC: ED 14:03
DX: I13.0 Hypertensive heart and chronic kidney disease with heart failure and stage 1 through stage 4 chronic kidney disease, or unspecified chronic kidney disease (principal); I50.9 Heart failure, unspecified; N18.9 Chronic kidney disease, unspecified; I48.91 Unspecified atrial fibrillation; I25.10 Atherosclerotic heart disease of native coronary artery without angina pectoris; E78.00 Pure hypercholesterolemia, unspecified; E03.9 Hypothyroidism, unspecified; Z88.0 Allergy status to penicillin; Z88.1 Allergy status to other antibiotic agents; Z88.2 Allergy status to sulfonamides; Z88.8 Allergy status to other drugs, medicaments and biological substances; Z79.01 Long term (current) use of anticoagulants; Z95.2 Presence of prosthetic heart valve; Z85.46 Personal history of malignant neoplasm of prostate; R06.02 Shortness of breath
CPT/HCPCS: 36415; 71046; 80053; 83605; 83735; 83880; 84484; 85025; 93005; 99282; A9270-GY

== ENCOUNTER 2019-08-16 20:26 | Emergency (ER) | payer MEDICARE, OTHER ==
--- NOTE | 2019-08-16 20:42 | ED ---
HPI Cardiac - HPI Summary HPI Summary: Patient is an 84 y/o M presenting to [facility] with complaints of palpitations characterized as "skipping beats". Sx onset this afternoon, 08/16/2019. Patient states that it feels like he is losing every third beat. He reports Hx of afib and PVCs and notes that he had a similar episode a few days ago as well. Patient is on Pradaxa for his afib. On monitor, patient is noted to be having PVCs but the patient claims that he is unable to notice them currently. Patient denies CP, SOB, syncope, or recent illnesses. He states that he recently had his diuretic increased from 2 mg to 3 mg due to his edema. Patient is on metoprolol as well. No known Hx of NC, angina, or heart failure reported. He notes that he had an ablation at the [facility] for his atrial tachycardia years ago. 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 Home medications and allergies are reviewed. - History of Current Complaint Stated Complaint: HEART PALPATATIONS PER EMS Time Seen by Provider: 08/16/19 20:31 Hx Obtained From: Patient Onset/Duration: Started Hours Ago Pain Scale Used: 0-10 Numeric Character: Skipped Beats Aggravating Factor(s): Nothing Alleviating Factor(s): Nothing Associated Signs and Symptoms: Positive: Palpitations, Other: - negative - syncope, recent illness. Negative: Chest Pain, Shortness of Breath - Additional Pertinent History Primary Care Physician: [id number] - Allergy/Home Medications Allergies/Adverse Reactions: Allergies Allergy/AdvReac Type Severity Reaction Status Date / Time amoxicillin Allergy Rash Verified 08/16/19 20:40 Sulfa (Sulfonamide Allergy Unknown Verified 08/16/19 20:40 Antibiotics) Reaction Details celecoxib [From Celebrex] AdvReac GI Upset Verified 08/16/19 20:40 hydrocodone AdvReac GI Upset Verified 08/16/19 20:40 ibuprofen AdvReac GI Upset Verified 08/16/19 20:40 naproxen AdvReac GI Upset Verified 08/16/19 20:40 PMH/Surg Hx/FS Hx/Imm Hx Endocrine/Hematology History: Denies: Hx Diabetes, Hx Thyroid Disease Cardiovascular History: Reports: Hx Angina, Hx Atrial Fibrillation, Hx Congestive Heart Failure, Hx Coronary Artery Disease, Hx Hypercholesterolemia, Hx Hypotension, Hx Hypertension, Hx Valvular Heart Disease - AORTIC VALVE REPLACEMENT, Other Cardiovascular Problems/Disorders - CAD, HIGH CHOLESTEROL Denies: Hx Myocardial Infarction, Hx Pacemaker/ICD, Hx Peripheral Vascular Disease Respiratory History: Denies: Hx Asthma, Hx Chronic Obstructive Pulmonary Disease (COPD) GI History: Denies: Hx Ulcer, Other GI Disorders History: Reports: Other Problems/Disorders - prostate ca and prostatectomy Denies: Hx Renal Disease Musculoskeletal History: Reports: Hx Back Problems, Other Musculoskeletal History - LAMINECTOMY Denies: Hx Arthritis Sensory History: Reports: Hx Contacts or Glasses - reading, Other Sensory Impairments - CORNEAL LENS IMPLANTS Denies: Hx Hearing Aid Opthamlomology History: Reports: Hx Contacts or Glasses - reading, Other Sensory Impairments - CORNEAL LENS IMPLANTS Neurological History: Denies: Hx Headaches Psychiatric History: Denies: Hx Panic Disorder - Cancer History Cancer Type, Location and Year: PROSTATE 1999 Hx Chemotherapy: No Hx Radiation Therapy: No - Surgical History Surgery Procedure, Year, and Place: RADICAL PROSTATECTOMY-1999, RF ABLATION, RT RCR-1998, CATARACT -LENS REPLACEMENTS, open heart. AORTIC VALVE REPLACEMENT- 2009, BILATERAL CARPAL TUNNEL, LAMINECTOMY 2011 Infectious Disease History: Reports: Hx Shingles Denies: Hx Hepatitis, Hx Human Immunodeficiency Virus (HIV) - Family History Known Family History: Positive: Hypertension, Other - POS: CVA - Social History Alcohol Use: Occasionally Substance Use Type: Reports: None Hx Tobacco Use: No Smoking Status (MU): Never Smoked Tobacco Have You Smoked in the Last Year: No Review of Systems Constitutional: Other - negative - recent illness Positive: Palpitations. Negative: Chest Pain Negative: Shortness Of Breath Negative: Syncope All Other Systems Reviewed And Are Negative: Yes Physical Exam - Summary Physical Exam Summary: Appearance: Well-appearing, Well-nourished, lying in bed comfortably Skin: Warm, dry, no obvious rash Eyes: sclera anicteric, no conjunctival pallor ENT: mucous membranes moist, pharynx appears normal Neck: Supple, nontender Respiratory: Clear to auscultation, no signs of respiratory distress Cardiovascular: Normal S1, S2. No murmurs. Normal distal pulses in tibial and radial bilaterally. Abdomen: Soft, nontender, normal active bowel sounds present Musculoskeletal: Normal, Strength/ROM Intact Triage Information Reviewed: Yes Vital Signs Reviewed: Yes Procedures - Sedation Patient Received Moderate/Deep Sedation with Procedure: No Diagnostics - Laboratory Result Diagrams: 08/16/19 20:57 08/16/19 20:57 Lab Statement: Any lab studies that have been ordered have been reviewed, and results considered in the medical decision making process. - EKG 2046 Cardiac Rate: NL - rate of 70 BPM Summary of EKG Findings: EKG showed sinus or ectopic atrial rhythm, PVCs, and RBBB. ED physician has reviewed and interpreted this EKG. Re-Evaluation - Re-Evaluation First Eval Re-Evaluation Time: 21:28 Comment: Results of workup discussed with patient. Patient has had PVCs on monitor, otherwise stable. He is safe for discharge to home. Patient given PCP followup. Disposition - Course Course Of Treatment: Patient is an 84 y/o M presenting to [facility] with complaints of palpitations characterized as "skipping beats". Sx onset this afternoon, 2019. Patient states that it feels like he is losing every third beat. He reports Hx of afib and PVCs and notes that he had a similar episode a few days ago as well. Patient is on Pradaxa for his afib. On monitor, patient is noted to be having PVCs but the patient claims that he is unable to notice them currently. Patient denies CP, SOB, syncope, or recent illnesses. He states that he recently had his diuretic increased from 2 mg to 3 mg due to his edema. Patient is on metoprolol as well. No known Hx of NC, angina, or heart failure reported. He notes that he had an ablation at the [facility] for his atrial tachycardia years ago. Physical exam was unremarkable. EKG showed sinus or ectopic atrial rhythm, PVCs, and RBBB. Bloodwork was obtained. Trop was 0.10 , but the patient noted that he typically runs in the 0.05 to 0.09 range. Other abnormal values include RBC 3.69, Hgb 11.7, Hct 33, MCH 32, sodium 130, chloride 95, BUN 33, creatinine 1.49, BUN/creatinine ratio 22.1, glucose 124. Results of workup discussed with patient. Patient has had PVCs on monitor, otherwise stable. He is safe for discharge to home. Patient given PCP followup. - Diagnoses Provider Diagnoses: Palpitations Discharge ED - Sign-Out/Discharge Documenting (check all that apply): Patient Departure - discharge - Discharge Plan Condition: Stable Disposition: HOME Patient Education Materials: Heart Palpitations (ED) Referrals: Lucie Morgan MD [Primary Care Provider] - Additional Instructions: We did not observe any rhythm problems other than PVCs on the heart monitor, and this is consistent with your history. I don't believe this to be a danger for you, and it is safe to discharge you home. I hope your heals up soon from her pelvic fracture, that can really cause a lot of pain while it heals. - Billing Disposition and Condition Condition: STABLE Disposition: Home - Attestation Statements Document Initiated by Marcia: Yes Documenting Scribe: LUCIE ZEPEDA Provider For Whom Marcia is Documenting (Include Credential): MONIKA WILBURN MD Scribe Attestation: I, LUCIE ZEPEDA, scribed for MONIKA WILBURN MD on 08/17/19 at 0254. Scribe Documentation Reviewed: Yes Provider Attestation: The documentation as recorded by the LUCIE de la cruz accurately reflects the service I personally performed and the decisions made by me, MONIKA WILBURN MD Status of Scribe Document: Viewed
[2019-08-16 21:04] LABS: ABS Basophils 0.1 10^3/ul (0-0.2); ABS Eosinophils 0.2 10^3/ul (0-0.6); ABS Lymphocytes 1.8 10^3/ul (1.0-4.8); ABS Monocytes 0.8 10^3/ul (0-0.8); ABS Neutrophils 4.7 10^3/ul (1.5-7.7); Eosinophil % 2.5 %; Hematocrit 33 % (42-52); Hemoglobin 11.7 g/dL (14.0-18.0); Lymphocyte % 23.4 %; Mean Corpuscular HGB Conc 35 g/dL (31-36); Mean Corpuscular Hemoglobin 32 pg (27-31); Mean Corpuscular Volume 90 fL (80-94); Mean Platelet Volume 8.5 fL (7.4-10.4); Platelet Count 211 10^3/uL (150-450); Red Blood Count 3.69 10^6 /uL (4.18-5.48); Red Cell Distribution Width 14 % (10-15); White Blood Count 7.6 10^3/uL (3.5-10.8)
[2019-08-16 21:21] LABS: ALT 10 U/L (7-52); AST 20 U/L (13-39); Albumin 3.9 g/dL (3.2-5.2); Alkaline Phosphatase 71 U/L (34-104); Anion Gap 7 mmol/L (2-11); BUN/Creatinine Ratio 22.1 (8-20); Blood Urea Nitrogen 33 mg/dL (6-24); CO2 Carbon Dioxide 28 mmol/L (22-32); Calcium 9.5 mg/dL (8.6-10.3); Chloride 95 mmol/L (101-111); EGFR African American 54.4 (>60); EGFR Non-African American 44.9 (>60); Glucose 124 mg/dL (70-100); Magnesium 2.1 mg/dL (1.9-2.7); Potassium 4.3 mmol/L (3.5-5.0); Sodium 130 mmol/L (135-145); Total Protein 7.9 g/dL (6.4-8.9)
[2019-08-16 21:58] VITALS: BP 142/54
[2019-08-16 22:20] LABS: TSH (Thyroid Stimulating Horm) 3.15 mcIU/mL (0.34-5.60)
== END 2019-08-16 22:02 | disposition home or self-care (01) ==
LOC: ED 20:26
DX: R00.2 Palpitations (principal); I48.91 Unspecified atrial fibrillation; I50.9 Heart failure, unspecified; E78.00 Pure hypercholesterolemia, unspecified; Z95.4 Presence of other heart-valve replacement; Z85.46 Personal history of malignant neoplasm of prostate; R94.31 Abnormal electrocardiogram [ECG] [EKG]
CPT/HCPCS: 36415; 80053; 83735; 84443; 84484; 85025; 93005; 99283

== ENCOUNTER 2020-03-24 15:25 | Observation (INO) ==
[2020-03-24 18:32] LABS: ABS Basophils 0.1 10^3/ul (0-0.2); ABS Eosinophils 0.2 10^3/ul (0-0.6); ABS Lymphocytes 2.6 10^3/ul (1.0-4.8); ABS Neutrophils 5.6 10^3/ul (1.5-7.7); Hematocrit 36 % (42-52); Hemoglobin 12.6 g/dL (14.0-18.0); Lymphocyte % 27.6 %; Mean Corpuscular HGB Conc 35 g/dL (31-36); Mean Corpuscular Hemoglobin 31 pg (27-31); Mean Corpuscular Volume 90 fL (80-94); Mean Platelet Volume 8.4 fL (7.4-10.4); Platelet Count 202 10^3/uL (150-450); Red Blood Count 4.01 10^6 /uL (4.18-5.48); Red Cell Distribution Width 14 % (10-15); White Blood Count 9.4 10^3/uL (3.5-10.8)
[2020-03-24 18:48] LABS: ALT 13 U/L (7-52); AST 22 U/L (13-39); Albumin 3.9 g/dL (3.2-5.2); Alkaline Phosphatase 76 U/L (34-104); BUN/Creatinine Ratio 20.9 (8-20); Blood Urea Nitrogen 34 mg/dL (6-24); C Reactive Protein 10.14 mg/L (<8.01); CO2 Carbon Dioxide 28 mmol/L (22-32); Calcium 9.5 mg/dL (8.6-10.3); Chloride 94 mmol/L (101-111); EGFR African American 48.9 (>60); EGFR Non-African American 40.4 (>60); Globulin 4.1 g/dL (2-4); Glucose 116 mg/dL (70-100); Sodium 127 mmol/L (135-145)
[2020-03-24 18:51] LABS: Anion Gap 5 mmol/L (2-11); Potassium 5.1 mmol/L (3.5-5.0)
[2020-03-24 18:52] LABS: Troponin I 0.06 ng/mL (<0.03)
[2020-03-24] MEDS ORDERED: Iodixanol (CONTRAST) 320 MG/ML 100 ML SDV IV ONE (19:07)
[2020-03-24 19:12] LABS: TSH Ultra Thyroid Stim Horm 4.47 mcIU/mL (0.34-5.60)
[2020-03-24 19:37] LABS: Urine Appearance Clear; Urine Bilirubin Negative (Negative); Urine Blood Negative (Negative); Urine Color Yellow; Urine Glucose Negative (Negative); Urine Ketones Negative (Negative); Urine Nitrite Negative (Negative); Urine Protein Negative (Negative); Urine Specific Gravity 1.009 (1.010-1.030); Urine Urobilinogen Negative (Negative)
[2020-03-24 21:16] LABS: Troponin I 0.06 ng/mL (<0.03)
[2020-03-25 00:31] LABS: Troponin I 0.07 ng/mL (<0.03)
[2020-03-25] MEDS ORDERED: Polyethylene Glycol 3350 17 GM PACKET PO PRN (01:36)
[2020-03-25 05:07] LABS: Troponin I 0.06 ng/mL (<0.03)
[2020-03-25 06:39] LABS: BUN/Creatinine Ratio 22.3 (8-20); Calcium 9.1 mg/dL (8.6-10.3); EGFR African American 54.7 (>60); EGFR Non-African American 45.2 (>60); Potassium 4.5 mmol/L (3.5-5.0)
[2020-03-25] MEDS ORDERED: Cholecalciferol (VIT D3) 1,000 unit TAB PO SCH (09:00)
[2020-03-25 16:03] VITALS: BP 113/46
[2020-03-28 20:24] LABS: Anaplasma phagocytophilum Negative (Negative); B. miyamotoi PCR, B Negative (Negative); Babesia divergens/MO-1 Negative (Negative); Babesia ducani Negative (Negative); Ehrlichia chaffeensis Negative (Negative); Ehrlichia ewingii/canis Negative (Negative); Ehrlichia muris eauclairensis Negative (Negative)
[2020-03-31 10:22] LABS: Albumin 3.1 g/dL (3.4-4.7); Albumin/Globulin Ratio 0.86; Gamma Globulin 1.7 g/dL (0.6-1.6); Total Protein(PEP) 6.6 g/dL (6.3 - 7.9)
== END 2020-03-25 17:14 | disposition home or self-care (01) ==
LOC: ED 15:25 → MEDTELE 15:25
PROVIDERS: ADMIT Student in an Organized Health Care Education/Training Program; ATTEND Internal Medicine

== ENCOUNTER 2020-11-02 15:03 | Inpatient (IN) ==
[2020-11-02 16:24] LABS: ABS Eosinophils 0.2 10^3/ul (0-0.6); ABS Lymphocytes 2.5 10^3/ul (1.0-4.8); ABS Monocytes 1.1 10^3/ul (0-0.8); ABS Neutrophils 4.5 10^3/ul (1.5-7.7); Eosinophil % 2.8 %; Hematocrit 36 % (42-52); Hemoglobin 12.3 g/dL (14.0-18.0); Lymphocyte % 29.5 %; Mean Corpuscular HGB Conc 35 g/dL (31-36); Mean Corpuscular Hemoglobin 32 pg (27-31); Mean Corpuscular Volume 92 fL (80-94); Mean Platelet Volume 8.1 fL (7.4-10.4); Platelet Count 206 10^3/uL (150-450); Red Blood Count 3.85 10^6 /uL (4.18-5.48); Red Cell Distribution Width 15 % (10-15); White Blood Count 8.3 10^3/uL (3.5-10.8)
[2020-11-02 16:26] LABS: Urine Appearance Clear; Urine Bilirubin Negative (Negative); Urine Blood Negative (Negative); Urine Color Colorless; Urine Glucose Negative (Negative); Urine Ketones Negative (Negative); Urine Nitrite Negative (Negative); Urine Protein Negative (Negative); Urine Specific Gravity 1.004 (1.010-1.030); Urine Urobilinogen Negative (Negative)
[2020-11-02 16:37] LABS: Influenza A Molecular Negative (Negative); Influenza B Molecular Negative (Negative)
[2020-11-02 16:44] LABS: Activated Partial Thrombo Time 30.9 seconds (26.0-38.0); INR 1.77 (0.82-1.09)
[2020-11-02 16:46] LABS: ALT 12 U/L (7-52); AST 26 U/L (13-39); Albumin 4.1 g/dL (3.2-5.2); Alkaline Phosphatase 90 U/L (34-104); Anion Gap 7 mmol/L (2-11); BUN/Creatinine Ratio 22.3 (8-20); Blood Urea Nitrogen 33 mg/dL (6-24); CO2 Carbon Dioxide 38 mmol/L (22-32); Chloride 81 mmol/L (101-111); Creatine Kinase 158 U/L (10-223); EGFR African American 54.7 (>60); EGFR Non-African American 45.2 (>60); Glucose 126 mg/dL (70-100); Potassium 2.8 mmol/L (3.5-5.0); Sodium 126 mmol/L (135-145); Total Protein 8.1 g/dL (6.4-8.9)
[2020-11-02 16:54] LABS: Troponin I 0.19 ng/mL (<0.03)
[2020-11-02] MEDS ORDERED: Potassium Chlor 20 meq TAB.ER PO ONE (17:35)
[2020-11-02] MEDS: KCL 10 MEQ/50 ML IVPREMIX 10 MEQ/50 ML BAG IV SCH (18:12)
[2020-11-02] MEDS ORDERED: cefTRIAXone 1 gm/50 mL NS BAG 1 GM/50 ML BAG IV ONE (18:28)
[2020-11-02] MEDS ORDERED: Azithromycin 500 mg/250 ml NS 500 MG/250 ML BAG IVPB ONE (18:28)
[2020-11-02 19:18] LABS: Magnesium 1.8 mg/dL (1.9-2.7)
[2020-11-02 20:00] LABS: Troponin I 0.19 ng/mL (<0.03)
[2020-11-02] MEDS ORDERED: Potassium Chlor 10 meq TAB PO ONE (21:00)
[2020-11-02] MEDS: Polyethylene Glycol 3350 17 GM PACKET PO SCH (22:19)
[2020-11-02] MEDS ORDERED: Magnesium Sulfate 2 gm BAG 2 GM/50 ML BAG IVPB ONE (23:57)
[2020-11-02] MEDS ORDERED: Potassium Chloride LIQUID 20 MEQ/15 ML LIQUID PO ONE (23:58)
[2020-11-03] MEDS: KCL 10 MEQ/50 ML IVPREMIX 10 MEQ/50 ML BAG IV SCH (02:57)
[2020-11-03 05:39] LABS: ABS Eosinophils 0.2 10^3/ul (0-0.6); ABS Lymphocytes 2.2 10^3/ul (1.0-4.8); ABS Neutrophils 4.7 10^3/ul (1.5-7.7); Eosinophil % 2.4 %; Hematocrit 31 % (42-52); Lymphocyte % 26.8 %; Mean Corpuscular HGB Conc 36 g/dL (31-36); Mean Corpuscular Hemoglobin 33 pg (27-31); Mean Corpuscular Volume 92 fL (80-94); Mean Platelet Volume 8.5 fL (7.4-10.4); Platelet Count 160 10^3/uL (150-450); Red Blood Count 3.34 10^6 /uL (4.18-5.48); Red Cell Distribution Width 15 % (10-15); White Blood Count 8.1 10^3/uL (3.5-10.8)
[2020-11-03 05:59] LABS: BUN/Creatinine Ratio 22.4 (8-20); Calcium 9.1 mg/dL (8.6-10.3); EGFR Non-African American 43.8 (>60); Potassium 3.8 mmol/L (3.5-5.0)
[2020-11-03] MEDS: Magnesium Chloride EC 64 mgTAB PO SCH (10:14)
[2020-11-03] MEDS: Cholecalciferol (VIT D3) 1,000 unit TAB PO SCH (10:14)
[2020-11-03] MEDS: Polyethylene Glycol 3350 17 GM PACKET PO SCH (20:55)
[2020-11-04 06:45] LABS: Hematocrit 32 % (42-52); Hemoglobin 11.2 g/dL (14.0-18.0); Mean Corpuscular HGB Conc 35 g/dL (31-36); Mean Corpuscular Hemoglobin 32 pg (27-31); Mean Corpuscular Volume 91 fL (80-94); Mean Platelet Volume 7.8 fL (7.4-10.4); Platelet Count 168 10^3/uL (150-450); Red Blood Count 3.49 10^6 /uL (4.18-5.48); Red Cell Distribution Width 15 % (10-15)
[2020-11-04 07:01] LABS: BUN/Creatinine Ratio 24.5 (8-20); EGFR African American 55.1 (>60); EGFR Non-African American 45.5 (>60); Magnesium 1.9 mg/dL (1.9-2.7); Potassium 3.1 mmol/L (3.5-5.0)
[2020-11-04] MEDS ORDERED: Potassium Chlor 10 meq TAB PO ONE (07:31)
[2020-11-04] MEDS ORDERED: Magnesium Sulfate 2 gm BAG 2 GM/50 ML BAG IVPB ONE (07:32)
[2020-11-04 08:48] LABS: Ferritin 298.3 ng/mL (24-336)
[2020-11-04] MEDS: Cholecalciferol (VIT D3) 1,000 unit TAB PO SCH (09:38)
[2020-11-04] MEDS: Magnesium Chloride EC 64 mgTAB PO SCH (09:38)
[2020-11-04 11:32] VITALS: BP 122/55
[2020-11-04 12:09] LABS: Hepatitis B Surface Antigen Nonreactive (Nonreactive)
[2020-11-04 13:06] LABS: Hepatitis B Surface Ab Not Immune (Immune); Hepatitis C Antibody Negative (Negative)
== END 2020-11-04 13:45 | disposition home or self-care (01) | DRG 206 ==
LOC: ED 15:03 → MED 15:03 → OBSVTOIN 18:30 → MED 11-03 21:30
PROVIDERS: ADMIT Student in an Organized Health Care Education/Training Program; ATTEND Internal Medicine

== ENCOUNTER 2020-11-12 07:45 | Inpatient (IN) ==
[2020-11-12 09:11] LABS: ABS Basophils 0.1 10^3/ul (0-0.2); ABS Eosinophils 0.1 10^3/ul (0-0.6); ABS Lymphocytes 1.2 10^3/ul (1.0-4.8); ABS Monocytes 1.2 10^3/ul (0-0.8); Eosinophil % 0.8 %; Hematocrit 30 % (42-52); Hemoglobin 10.4 g/dL (14.0-18.0); Lymphocyte % 12.9 %; Mean Corpuscular HGB Conc 35 g/dL (31-36); Mean Corpuscular Hemoglobin 32 pg (27-31); Mean Corpuscular Volume 92 fL (80-94); Mean Platelet Volume 8.3 fL (7.4-10.4); Platelet Count 202 10^3/uL (150-450); Red Blood Count 3.22 10^6 /uL (4.18-5.48); Red Cell Distribution Width 15 % (10-15); White Blood Count 9.6 10^3/uL (3.5-10.8)
[2020-11-12 09:28] LABS: Anion Gap 8 mmol/L (2-11); BUN/Creatinine Ratio 20.8 (8-20); Blood Urea Nitrogen 30 mg/dL (6-24); CO2 Carbon Dioxide 29 mmol/L (22-32); Calcium 8.7 mg/dL (8.6-10.3); Chloride 85 mmol/L (101-111); EGFR African American 56.4 (>60); EGFR Non-African American 46.6 (>60); Glucose 184 mg/dL (70-100); Magnesium 1.6 mg/dL (1.9-2.7); Potassium 3.4 mmol/L (3.5-5.0); Sodium 122 mmol/L (135-145)
[2020-11-12] MEDS ORDERED: Magnesium Sulfate 2 gm BAG 2 GM/50 ML BAG IVPB ONE (10:12)
[2020-11-12] MEDS ORDERED: Furosemide 100 mg/10 ml IV VIAL IV ONE ×2 (11:08→16:58)
[2020-11-12] MEDS ORDERED: Potassium Chlor 10 meq TAB PO ONE (11:08)
[2020-11-12 12:06] LABS: Troponin I 0.13 ng/mL (<0.03)
[2020-11-12 13:04] LABS: ALT 14 U/L (7-52); AST 26 U/L (13-39); Albumin 3.6 g/dL (3.2-5.2); Albumin/Globulin Ratio 1.1 (1-3); Alkaline Phosphatase 99 U/L (34-104); Globulin 3.4 g/dL (2-4)
[2020-11-12 13:05] LABS: GGTP 47 U/L (9-64.0)
[2020-11-12 13:22] LABS: TSH Ultra Thyroid Stim Horm 4.72 mcIU/mL (0.34-5.60)
[2020-11-12 13:24] LABS: Free T4 1.25 ng/dL (0.61-1.12)
[2020-11-12 14:02] LABS: BUN/Creatinine Ratio 20.1 (8-20); Calcium 8.8 mg/dL (8.6-10.3); EGFR African American 58.8 (>60); EGFR Non-African American 48.6 (>60); Potassium 3.5 mmol/L (3.5-5.0)
[2020-11-12 20:00] LABS: Anion Gap 7 mmol/L (2-11); BUN/Creatinine Ratio 20.1 (8-20); Blood Urea Nitrogen 28 mg/dL (6-24); CO2 Carbon Dioxide 31 mmol/L (22-32); Calcium 8.9 mg/dL (8.6-10.3); Chloride 86 mmol/L (101-111); EGFR African American 58.8 (>60); EGFR Non-African American 48.6 (>60); Glucose 149 mg/dL (70-100); Potassium 3.5 mmol/L (3.5-5.0); Sodium 124 mmol/L (135-145)
[2020-11-12] MEDS: Polyethylene Glycol 3350 17 GM PACKET PO SCH (20:07)
[2020-11-12] MEDS: Potassium Chlor 10 meq TAB PO SCH (20:07)
[2020-11-12 20:11] LABS: Urine Appearance Clear; Urine Bilirubin Negative (Negative); Urine Blood Negative (Negative); Urine Color Straw; Urine Glucose Negative (Negative); Urine Ketones Negative (Negative); Urine Nitrite Negative (Negative); Urine Protein Negative (Negative); Urine Specific Gravity 1.006 (1.002-1.030); Urine Urobilinogen Negative (Negative)
[2020-11-12 21:36] LABS: Troponin I 0.13 ng/mL (<0.03)
[2020-11-12] MEDS: Potassium Acid Phos 500 mg TAB PO SCH (22:15)
[2020-11-13 05:52] LABS: Hematocrit 28 % (42-52); Hemoglobin 9.9 g/dL (14.0-18.0); Mean Corpuscular HGB Conc 36 g/dL (31-36); Mean Corpuscular Hemoglobin 33 pg (27-31); Mean Corpuscular Volume 92 fL (80-94); Platelet Count 191 10^3/uL (150-450); Red Cell Distribution Width 15 % (10-15); White Blood Count 8.8 10^3/uL (3.5-10.8)
[2020-11-13 05:59] LABS: ABS Eosinophils 0.2 10^3/ul (0-0.6); ABS Lymphocytes 1.9 10^3/ul (1.0-4.8); ABS Neutrophils 5.6 10^3/ul (1.5-7.7); Eosinophil % 2.2 %; Lymphocyte % 21.5 %
[2020-11-13 06:12] LABS: Anion Gap 6 mmol/L (2-11); BUN/Creatinine Ratio 21.4 (8-20); Blood Urea Nitrogen 27 mg/dL (6-24); CO2 Carbon Dioxide 32 mmol/L (22-32); Calcium 8.7 mg/dL (8.6-10.3); Chloride 86 mmol/L (101-111); EGFR African American 65.8 (>60); EGFR Non-African American 54.4 (>60); Glucose 127 mg/dL (70-100); Magnesium 1.8 mg/dL (1.9-2.7); Phosphorus 2.7 mg/dL (2.5-5.0); Potassium 3.3 mmol/L (3.5-5.0); Sodium 124 mmol/L (135-145)
[2020-11-13 06:18] LABS: Troponin I 0.12 ng/mL (<0.03)
[2020-11-13] MEDS ORDERED: Magnesium Sulfate 2 gm BAG 2 GM/50 ML BAG IVPB ONE (07:28)
[2020-11-13] MEDS ORDERED: Perflutren Lipid Microsphere 3 ML VIAL ONE (09:30)
[2020-11-13] MEDS: Potassium Acid Phos 500 mg TAB PO SCH ×2 (10:21→13:23)
[2020-11-13] MEDS: Magnesium Chloride EC 64 mgTAB PO SCH (10:21)
[2020-11-13] MEDS: Cholecalciferol (VIT D3) 1,000 unit TAB PO SCH (10:21)
[2020-11-13] MEDS: Potassium Chlor 10 meq TAB PO SCH ×2 (10:22→20:37)
[2020-11-13] MEDS ORDERED: Furosemide 40 mg/4 ml IV VIAL IV SLOW PU ONE ×2 (17:00→18:58)
[2020-11-13 17:01] LABS: % Iron Saturation 9 % (15-55); Iron 27 ug/dL (50-212); Total Iron Binding Capacity 297 mcg/dL (250-450); Transferrin 212 mg/dL (203-362); Unsaturated Iron Binding < 282 ug/dL
[2020-11-13 17:03] LABS: C Reactive Protein 118.06 mg/L (<8.01)
[2020-11-13 18:43] LABS: BUN/Creatinine Ratio 21.2 (8-20); EGFR African American 62.4 (>60); EGFR Non-African American 51.5 (>60)
[2020-11-13 19:13] LABS: Urine Creatinine Concentration 59.79 mg/dL
[2020-11-13] MEDS: Polyethylene Glycol 3350 17 GM PACKET PO SCH (20:38)
[2020-11-14 02:26] LABS: ABS Basophils 0.1 10^3/ul (0-0.2); ABS Eosinophils 0.2 10^3/ul (0-0.6); ABS Lymphocytes 1.9 10^3/ul (1.0-4.8); ABS Monocytes 0.9 10^3/ul (0-0.8); ABS Neutrophils 4.9 10^3/ul (1.5-7.7); Eosinophil % 2.5 %; Hematocrit 27 % (42-52); Hemoglobin 9.6 g/dL (14.0-18.0); Lymphocyte % 24.2 %; Mean Corpuscular HGB Conc 36 g/dL (31-36); Mean Corpuscular Hemoglobin 33 pg (27-31); Mean Corpuscular Volume 91 fL (80-94); Mean Platelet Volume 7.6 fL (7.4-10.4); Platelet Count 209 10^3/uL (150-450); Red Blood Count 2.96 10^6 /uL (4.18-5.48); Red Cell Distribution Width 14 % (10-15); White Blood Count 8.1 10^3/uL (3.5-10.8)
[2020-11-14 02:42] LABS: BUN/Creatinine Ratio 20.7 (8-20); Calcium 8.6 mg/dL (8.6-10.3); Magnesium 1.8 mg/dL (1.9-2.7); Potassium 3.5 mmol/L (3.5-5.0)
[2020-11-14 07:49] LABS: BUN/Creatinine Ratio 19.7 (8-20); Calcium 8.9 mg/dL (8.6-10.3); EGFR African American 68.3 (>60); EGFR Non-African American 56.5 (>60); Magnesium 1.9 mg/dL (1.9-2.7); Potassium 3.6 mmol/L (3.5-5.0)
[2020-11-14] MEDS: Cholecalciferol (VIT D3) 1,000 unit TAB PO SCH (09:51)
[2020-11-14] MEDS: Potassium Chlor 10 meq TAB PO SCH ×2 (09:52→21:08)
[2020-11-14] MEDS: Magnesium Chloride EC 64 mgTAB PO SCH (09:53)
[2020-11-14] MEDS ORDERED: Bumetanide IV 0.25 MG/ML 4 ml VIAL (1 mg) SLOW PUSH ONE (10:17)
[2020-11-14] MEDS ORDERED: Potassium Chlor 20 meq TAB.ER PO ONE (13:00)
[2020-11-14] MEDS ORDERED: Potassium Chloride LIQUID 20 MEQ/15 ML LIQUID PO ONE (13:00)
[2020-11-14 19:30] LABS: Urine Potassium Concentration 13.8 mmol/L
[2020-11-14] MEDS: Polyethylene Glycol 3350 17 GM PACKET PO SCH (21:04)
[2020-11-15] MEDS ORDERED: Bumetanide IV 0.25 MG/ML 4 ml VIAL (1 mg) SLOW PUSH PRN (07:00)
[2020-11-15] MEDS: Potassium Chlor 10 meq TAB PO SCH ×2 (08:29→22:21)
[2020-11-15] MEDS: Cholecalciferol (VIT D3) 1,000 unit TAB PO SCH (08:29)
[2020-11-15] MEDS: Magnesium Chloride EC 64 mgTAB PO SCH (08:29)
[2020-11-15] MEDS ORDERED: Potassium Chlor 20 meq TAB.ER PO ONE (09:18)
[2020-11-15 09:27] LABS: BUN/Creatinine Ratio 18.3 (8-20); Calcium 9.3 mg/dL (8.6-10.3); EGFR African American 77.8 (>60); EGFR Non-African American 64.3 (>60); Magnesium 1.8 mg/dL (1.9-2.7); Potassium 3.7 mmol/L (3.5-5.0); Uric Acid 9.7 mg/dL (4.4-7.6)
[2020-11-15] MEDS ORDERED: Potassium Chloride LIQUID 20 MEQ/15 ML LIQUID PO ONE (09:40)
[2020-11-15] MEDS ORDERED: Magnesium Sulfate 2 gm BAG 2 GM/50 ML BAG IVPB ONE (10:02)
[2020-11-15 15:20] LABS: Immunoglobulin A 227 mg/dL (61 - 356); Immunoglobulin G 1610 mg/dL (767 - 1590); Immunoglobulin M 49 mg/dL (37 - 286)
[2020-11-15 15:45] LABS: Kappa Free Light Chain 3.83 mg/dL
[2020-11-15 18:27] LABS: Urine Kappa Total Light Chain <0.9000 mg/dL (<0.9000)
[2020-11-15] MEDS: Polyethylene Glycol 3350 17 GM PACKET PO SCH (22:29)
[2020-11-16] MEDS: Cholecalciferol (VIT D3) 1,000 unit TAB PO SCH (08:09)
[2020-11-16] MEDS: Magnesium Chloride EC 64 mgTAB PO SCH (08:09)
[2020-11-16] MEDS: Potassium Chlor 10 meq TAB PO SCH ×2 (08:10→20:32)
[2020-11-16 08:16] LABS: Calcium 9.6 mg/dL (8.6-10.3); EGFR African American 66.4 (>60); EGFR Non-African American 54.9 (>60); Potassium 3.8 mmol/L (3.5-5.0)
[2020-11-16] MEDS: Polyethylene Glycol 3350 17 GM PACKET PO SCH (16:45)
[2020-11-16 20:17] LABS: Calcium 9.7 mg/dL (8.6-10.3); EGFR African American 57.8 (>60); EGFR Non-African American 47.8 (>60); Potassium 3.9 mmol/L (3.5-5.0)
[2020-11-17 09:17] LABS: BUN/Creatinine Ratio 17.9 (8-20); Calcium 9.5 mg/dL (8.6-10.3); EGFR African American 67.7 (>60); EGFR Non-African American 55.9 (>60); Potassium 3.9 mmol/L (3.5-5.0)
[2020-11-17] MEDS: Cholecalciferol (VIT D3) 1,000 unit TAB PO SCH (09:52)
[2020-11-17] MEDS: Magnesium Chloride EC 64 mgTAB PO SCH (09:52)
[2020-11-17] MEDS: Potassium Chlor 10 meq TAB PO SCH ×2 (09:56→20:29)
[2020-11-17] MEDS: Polyethylene Glycol 3350 17 GM PACKET PO SCH (20:29)
[2020-11-17 20:40] LABS: BUN/Creatinine Ratio 19.3 (8-20); Calcium 9.8 mg/dL (8.6-10.3); EGFR African American 58.3 (>60); EGFR Non-African American 48.2 (>60); Potassium 4.1 mmol/L (3.5-5.0)
[2020-11-18] MEDS: Magnesium Chloride EC 64 mgTAB PO SCH (07:30)
[2020-11-18] MEDS: Potassium Chlor 10 meq TAB PO SCH (07:33)
[2020-11-18] MEDS: Cholecalciferol (VIT D3) 1,000 unit TAB PO SCH (07:33)
[2020-11-18 08:14] LABS: BUN/Creatinine Ratio 19.6 (8-20); Calcium 9.8 mg/dL (8.6-10.3); EGFR African American 59.3 (>60); Potassium 4.1 mmol/L (3.5-5.0)
[2020-11-18] MEDS ORDERED: Polyethylene Glycol 3350 17 GM PACKET PO ONE (10:00)
[2020-11-18 11:34] LABS: Albumin 2.8 g/dL (3.4-4.7); Albumin/Globulin Ratio 0.74; Gamma Globulin 1.6 g/dL (0.6-1.6); Total Protein(PEP) 6.5 g/dL (6.3 - 7.9)
[2020-11-18 17:20] VITALS: BP 119/64
[2020-11-18 18:14] LABS: Albumin 2.9 mg/dL; Albumin/Globulin Ratio 0.92; Gamma Globulin 0.8 mg/dL; Protein,Total, Random Urine 6 mg/dL
[2020-11-21 12:40] LABS: Flag, M-protein Isotype Positive (Negative)
== END 2020-11-18 18:45 | disposition home or self-care (01) | DRG 291 ==
LOC: MEDTELE 07:45 → ED 07:45 → MEDTELE 13:29 → MED 11-13 03:06
PROVIDERS: ADMIT Hospitalist; ATTEND Internal Medicine

== ENCOUNTER 2022-02-20 17:05 | Inpatient (IN) ==
[2022-02-20] MEDS ORDERED: Furosemide 100 mg/10 ml IV VIAL IV ONE (17:44)
[2022-02-20 18:38] LABS: ABS Basophils 0.1 10^3/ul (0-0.2); ABS Eosinophils 0.8 10^3/ul (0-0.6); ABS Lymphocytes 1.7 10^3/ul (1.0-4.8); ABS Monocytes 1.2 10^3/ul (0-0.8); ABS Neutrophils 4.5 10^3/ul (1.5-7.7); Eosinophil % 9.8 %; Hematocrit 36 % (42-52); Hemoglobin 11.9 g/dL (14.0-18.0); Lymphocyte % 20.4 %; Mean Corpuscular HGB Conc 34 g/dL (31-36); Mean Corpuscular Hemoglobin 33 pg (27-31); Mean Corpuscular Volume 98 fL (80-94); Mean Platelet Volume 9.4 fL (7.4-10.4); Platelet Count 162 10^3/uL (150-450); Red Cell Distribution Width 17 % (10-15); White Blood Count 8.2 10^3/uL (3.5-10.8)
[2022-02-20 18:42] LABS: INR 2.11 (0.86-1.15)
[2022-02-20 18:59] LABS: High Sens Troponin Baseline 363 pg/mL (<20)
[2022-02-20 19:01] LABS: ALT 22 U/L (7-52); AST 37 U/L (13-39); Albumin 3.9 g/dL (3.2-5.2); Albumin/Globulin Ratio 1.1 (1-3); Alkaline Phosphatase 224 U/L (35-149); Anion Gap 5 mmol/L (2-11); Blood Urea Nitrogen 39 mg/dL (6-24); CO2 Carbon Dioxide 34 mmol/L (22-32); Calcium 9.4 mg/dL (8.6-10.3); Chloride 92 mmol/L (101-111); Globulin 3.6 g/dL (2-4); Glucose 188 mg/dL (70-100); Magnesium 2.6 mg/dL (1.9-2.7); Potassium 4.4 mmol/L (3.5-5.0); Sodium 131 mmol/L (135-145); Total Protein 7.5 g/dL (6.4-8.9); eGFR CKD-EPI 32.9 (>60)
[2022-02-20 19:24] LABS: % Iron Saturation 9 % (15-55); Iron 31 ug/dL (50-212); Total Iron Binding Capacity 353 mcg/dL (250-450); Transferrin 252 mg/dL (203-362); Unsaturated Iron Binding 322 ug/dL
[2022-02-20 19:44] LABS: Ferritin 299.8 ng/mL (24-336)
[2022-02-20 19:48] LABS: Vitamin B12 654 pg/mL (180-914)
[2022-02-20 19:49] LABS: Folate > 20.00 ng/mL (5.90-24.80)
[2022-02-20 20:02] LABS: GGTP 121 U/L (9-64.0)
[2022-02-20 20:10] LABS: High Sensitivity Troponin 1 Hr 358 pg/mL (<20)
[2022-02-20 20:44] LABS: Urine Appearance Clear; Urine Bilirubin Negative (Negative); Urine Blood Negative (Negative); Urine Color Straw; Urine Glucose 3+(>=500 mg/dL) (Negative); Urine Ketones Negative (Negative); Urine Nitrite Negative (Negative); Urine Protein Negative (Negative); Urine Urobilinogen Negative (Negative)
[2022-02-21] MEDS: OPTH BOTH EYES SCH ×5 (00:41→19:53)
[2022-02-21] MEDS: CIPROFLOXACIN 0.3% BOTH EYES SCH ×5 (00:41→19:53)
[2022-02-21] MEDS: CEPHALEXIN 500 MG PO SCH ×4 (00:41→19:51)
[2022-02-21] MEDS: Polyethylene Glycol 3350 17 GM PACKET PO SCH ×3 (00:41→19:50)
[2022-02-21] MEDS: [UNRECOGNIZED DRUG - OTHER] BOTH EYES PRN (04:17)
[2022-02-21 05:46] LABS: Hematocrit 36 % (42-52); Hemoglobin 12.2 g/dL (14.0-18.0); Mean Corpuscular HGB Conc 34 g/dL (31-36); Mean Corpuscular Hemoglobin 33 pg (27-31); Mean Corpuscular Volume 98 fL (80-94); Mean Platelet Volume 9.5 fL (7.4-10.4); Platelet Count 173 10^3/uL (150-450); Red Blood Count 3.69 10^6 /uL (4.18-5.48); Red Cell Distribution Width 17 % (10-15); White Blood Count 8.7 10^3/uL (3.5-10.8)
[2022-02-21 06:05] LABS: Calcium 9.3 mg/dL (8.6-10.3); Magnesium 2.7 mg/dL (1.9-2.7); Potassium 4.1 mmol/L (3.5-5.0); eGFR CKD-EPI 35.5 (>60)
[2022-02-21] MEDS ORDERED: Furosemide 100 mg/10 ml IV VIAL IV SCH ×2 (09:00→17:00)
[2022-02-21] MEDS: Cholecalciferol (VIT D3) 1,000 unit TAB PO SCH (10:10)
[2022-02-21] MEDS: FUROSEMIDE IV SCH ×2 (17:43→19:50)
[2022-02-21] MEDS: NS 0.9% IV SCH ×2 (17:43→19:50)
[2022-02-22 06:07] LABS: Hematocrit 34 % (42-52); Hemoglobin 11.9 g/dL (14.0-18.0); Mean Corpuscular HGB Conc 35 g/dL (31-36); Mean Corpuscular Hemoglobin 34 pg (27-31); Mean Corpuscular Volume 97 fL (80-94); Mean Platelet Volume 8.8 fL (7.4-10.4); Platelet Count 156 10^3/uL (150-450); Red Blood Count 3.53 10^6 /uL (4.18-5.48); Red Cell Distribution Width 16 % (10-15); White Blood Count 7.9 10^3/uL (3.5-10.8)
[2022-02-22 06:23] LABS: Calcium 8.9 mg/dL (8.6-10.3); Magnesium 2.6 mg/dL (1.9-2.7); Potassium 3.9 mmol/L (3.5-5.0); eGFR CKD-EPI 36.5 (>60)
[2022-02-22] MEDS ORDERED: Furosemide 100 mg/10 ml IV VIAL ONE ×2 (09:27→12:16)
[2022-02-22] MEDS: CEPHALEXIN 500 MG PO SCH ×3 (09:33→21:01)
[2022-02-22] MEDS: OPTH BOTH EYES SCH ×3 (09:33→18:26)
[2022-02-22] MEDS: CIPROFLOXACIN 0.3% BOTH EYES SCH ×3 (09:33→18:26)
[2022-02-22] MEDS: Cholecalciferol (VIT D3) 1,000 unit TAB PO SCH (09:34)
[2022-02-22] MEDS: NS 0.9% IV SCH ×4 (09:45→21:24)
[2022-02-22] MEDS: FUROSEMIDE IV SCH ×4 (09:45→21:24)
[2022-02-22] MEDS: Ciprofloxacin 0.3% OPTH.SOL 5 ML BTL BOTH EYES SCH ×3 (13:18→21:06)
[2022-02-22] MEDS: Polyethylene Glycol 3350 17 GM PACKET PO SCH (21:05)
[2022-02-23 06:21] LABS: Hematocrit 33 % (42-52); Hemoglobin 11.3 g/dL (14.0-18.0); Mean Corpuscular HGB Conc 34 g/dL (31-36); Mean Corpuscular Hemoglobin 33 pg (27-31); Mean Corpuscular Volume 96 fL (80-94); Mean Platelet Volume 9.1 fL (7.4-10.4); Platelet Count 154 10^3/uL (150-450); Red Blood Count 3.47 10^6 /uL (4.18-5.48); Red Cell Distribution Width 16 % (10-15); White Blood Count 7.5 10^3/uL (3.5-10.8)
[2022-02-23 06:45] LABS: Calcium 8.6 mg/dL (8.6-10.3); Magnesium 2.5 mg/dL (1.9-2.7); Potassium 3.5 mmol/L (3.5-5.0); eGFR CKD-EPI 39.4 (>60)
[2022-02-23] MEDS ORDERED: Potassium Chlor 10 meq TAB PO ONE (07:20)
[2022-02-23] MEDS ORDERED: Furosemide 100 mg/10 ml IV VIAL ONE ×2 (09:16→13:21)
[2022-02-23] MEDS: NS 0.9% IV SCH ×3 (09:26→20:57)
[2022-02-23] MEDS: FUROSEMIDE IV SCH ×3 (09:26→20:57)
[2022-02-23] MEDS: CEPHALEXIN 500 MG PO SCH ×3 (09:27→20:51)
[2022-02-23] MEDS: Cholecalciferol (VIT D3) 1,000 unit TAB PO SCH (09:29)
[2022-02-23] MEDS: Ciprofloxacin 0.3% OPTH.SOL 5 ML BTL BOTH EYES SCH ×5 (09:30→20:56)
[2022-02-23] MEDS: Polyethylene Glycol 3350 17 GM PACKET PO SCH (20:56)
[2022-02-24 07:17] LABS: Magnesium 2.6 mg/dL (1.9-2.7); eGFR CKD-EPI 42.4 (>60)
[2022-02-24] MEDS: Ciprofloxacin 0.3% OPTH.SOL 5 ML BTL BOTH EYES SCH ×4 (07:58→21:16)
[2022-02-24] MEDS: Cholecalciferol (VIT D3) 1,000 unit TAB PO SCH (08:00)
[2022-02-24] MEDS: CEPHALEXIN 500 MG PO SCH ×3 (08:00→21:13)
[2022-02-24] MEDS ORDERED: Potassium Chloride LIQUID 20 MEQ/15 ML LIQUID PO SCH (09:00)
[2022-02-24] MEDS: FUROSEMIDE IV SCH ×3 (09:21→21:07)
[2022-02-24] MEDS: NS 0.9% IV SCH ×3 (09:21→21:07)
[2022-02-24] MEDS ORDERED: Furosemide 100 mg/10 ml IV VIAL ONE (20:48)
[2022-02-24] MEDS: Polyethylene Glycol 3350 17 GM PACKET PO SCH (21:23)
[2022-02-25 07:02] LABS: Calcium 8.7 mg/dL (8.6-10.3); Magnesium 2.5 mg/dL (1.9-2.7); eGFR CKD-EPI 41.4 (>60)
[2022-02-25] MEDS: CEPHALEXIN 500 MG PO SCH ×3 (08:01→20:39)
[2022-02-25] MEDS: Ciprofloxacin 0.3% OPTH.SOL 5 ML BTL BOTH EYES SCH ×4 (08:01→20:41)
[2022-02-25] MEDS: Potassium Chloride LIQUID 20 MEQ/15 ML LIQUID PO SCH ×2 (08:01→20:39)
[2022-02-25] MEDS: Cholecalciferol (VIT D3) 1,000 unit TAB PO SCH (08:02)
[2022-02-25] MEDS: NS 0.9% IV SCH ×3 (10:06→20:33)
[2022-02-25] MEDS: FUROSEMIDE IV SCH ×3 (10:06→20:33)
[2022-02-25] MEDS: Polyethylene Glycol 3350 17 GM PACKET PO SCH (20:39)
[2022-02-26 06:35] LABS: Calcium 8.8 mg/dL (8.6-10.3); Magnesium 2.5 mg/dL (1.9-2.7); Potassium 3.8 mmol/L (3.5-5.0); eGFR CKD-EPI 38.3 (>60)
[2022-02-26] MEDS: Ciprofloxacin 0.3% OPTH.SOL 5 ML BTL BOTH EYES SCH ×2 (07:37→11:29)
[2022-02-26] MEDS: CEPHALEXIN 500 MG PO SCH ×3 (07:37→20:43)
[2022-02-26] MEDS: Cholecalciferol (VIT D3) 1,000 unit TAB PO SCH (07:37)
[2022-02-26] MEDS: Potassium Chloride LIQUID 20 MEQ/15 ML LIQUID PO SCH ×2 (07:37→20:47)
[2022-02-26] MEDS: FUROSEMIDE IV SCH ×3 (10:38→21:09)
[2022-02-26] MEDS: NS 0.9% IV SCH ×3 (10:38→21:09)
[2022-02-26] MEDS ORDERED: Dextran 70/Hypromellose Tears Eye Drops 15 ml BTL (for Artificials Tears) BOTH EYES PRN (13:23)
[2022-02-26] MEDS: Erythromycin OPTH OINT APPLIC OINT BOTH EYES SCH ×2 (14:40→21:06)
[2022-02-26] MEDS ORDERED: Furosemide 100 mg/10 ml IV VIAL ONE (20:36)
[2022-02-26] MEDS: Polyethylene Glycol 3350 17 GM PACKET PO SCH (20:46)
[2022-02-26] MEDS: [UNRECOGNIZED DRUG - OTHER] BOTH EYES PRN (21:38)
[2022-02-27] MEDS: [UNRECOGNIZED DRUG - OTHER] BOTH EYES PRN ×3 (02:11→20:31)
[2022-02-27 06:01] LABS: ABS Basophils 0.1 10^3/ul (0-0.2); ABS Eosinophils 0.9 10^3/ul (0-0.6); ABS Lymphocytes 1.7 10^3/ul (1.0-4.8); ABS Monocytes 1.2 10^3/ul (0-0.8); ABS Neutrophils 4.1 10^3/ul (1.5-7.7); Eosinophil % 11.3 %; Hematocrit 35 % (42-52); Hemoglobin 11.7 g/dL (14.0-18.0); Lymphocyte % 20.9 %; Mean Corpuscular HGB Conc 34 g/dL (31-36); Mean Corpuscular Hemoglobin 33 pg (27-31); Mean Corpuscular Volume 97 fL (80-94); Mean Platelet Volume 9.2 fL (7.4-10.4); Platelet Count 158 10^3/uL (150-450); Red Blood Count 3.57 10^6 /uL (4.18-5.48); Red Cell Distribution Width 17 % (10-15); White Blood Count 7.9 10^3/uL (3.5-10.8)
[2022-02-27 06:17] LABS: Calcium 8.9 mg/dL (8.6-10.3); Magnesium 2.4 mg/dL (1.9-2.7)
[2022-02-27] MEDS ORDERED: Furosemide 100 mg/10 ml IV VIAL ONE ×2 (09:58→13:19)
[2022-02-27] MEDS: Potassium Chloride LIQUID 20 MEQ/15 ML LIQUID PO SCH ×2 (10:11→20:25)
[2022-02-27] MEDS: CEPHALEXIN 500 MG PO SCH ×3 (10:11→20:25)
[2022-02-27] MEDS: Cholecalciferol (VIT D3) 1,000 unit TAB PO SCH (10:12)
[2022-02-27] MEDS: Erythromycin OPTH OINT APPLIC OINT BOTH EYES SCH ×3 (10:13→20:32)
[2022-02-27] MEDS: NS 0.9% IV SCH ×3 (10:36→20:33)
[2022-02-27] MEDS: FUROSEMIDE IV SCH ×3 (10:36→20:33)
[2022-02-27] MEDS: Olopatadine 0.1% OPHTH (NF) 1 DROP BTL BOTH EYES SCH ×2 (17:30→21:46)
[2022-02-27] MEDS: Polyethylene Glycol 3350 17 GM PACKET PO SCH (20:24)
[2022-02-28 05:22] LABS: ABS Basophils 0.1 10^3/ul (0-0.2); ABS Eosinophils 0.9 10^3/ul (0-0.6); ABS Lymphocytes 1.5 10^3/ul (1.0-4.8); ABS Monocytes 1.2 10^3/ul (0-0.8); ABS Neutrophils 4.1 10^3/ul (1.5-7.7); Eosinophil % 11.5 %; Hematocrit 36 % (42-52); Hemoglobin 12.2 g/dL (14.0-18.0); Lymphocyte % 19.3 %; Mean Corpuscular HGB Conc 34 g/dL (31-36); Mean Corpuscular Hemoglobin 33 pg (27-31); Mean Corpuscular Volume 96 fL (80-94); Mean Platelet Volume 9.2 fL (7.4-10.4); Platelet Count 186 10^3/uL (150-450); Red Blood Count 3.69 10^6 /uL (4.18-5.48); Red Cell Distribution Width 17 % (10-15); White Blood Count 7.8 10^3/uL (3.5-10.8)
[2022-02-28 05:44] LABS: Calcium 9.3 mg/dL (8.6-10.3); Magnesium 2.5 mg/dL (1.9-2.7); Potassium 3.2 mmol/L (3.5-5.0)
[2022-02-28] MEDS ORDERED: Furosemide 100 mg/10 ml IV VIAL ONE ×3 (08:30→15:10)
[2022-02-28] MEDS: Potassium Chloride LIQUID 20 MEQ/15 ML LIQUID PO SCH ×2 (08:36→20:16)
[2022-02-28] MEDS: Cholecalciferol (VIT D3) 1,000 unit TAB PO SCH (08:41)
[2022-02-28] MEDS: CEPHALEXIN 500 MG PO SCH ×3 (08:42→20:14)
[2022-02-28] MEDS: KCL 20 MEQ/100 ML IVPREMIX 20 MEQ/100 ML BAG IV SCH ×2 (08:44→13:00)
[2022-02-28] MEDS: Olopatadine 0.1% OPHTH (NF) 1 DROP BTL BOTH EYES SCH ×2 (09:35→20:16)
[2022-02-28] MEDS: Erythromycin OPTH OINT APPLIC OINT BOTH EYES SCH ×3 (09:35→20:15)
[2022-02-28] MEDS: FUROSEMIDE IV SCH ×3 (11:35→20:15)
[2022-02-28] MEDS: NS 0.9% IV SCH ×3 (11:35→20:15)
[2022-02-28] MEDS: Polyethylene Glycol 3350 17 GM PACKET PO SCH (20:15)
[2022-03-01 05:24] LABS: ABS Basophils 0.1 10^3/ul (0-0.2); ABS Eosinophils 1.1 10^3/ul (0-0.6); ABS Lymphocytes 1.7 10^3/ul (1.0-4.8); ABS Monocytes 1.3 10^3/ul (0-0.8); ABS Neutrophils 4.1 10^3/ul (1.5-7.7); Eosinophil % 12.9 %; Hematocrit 37 % (42-52); Hemoglobin 12.7 g/dL (14.0-18.0); Lymphocyte % 20.7 %; Mean Corpuscular HGB Conc 34 g/dL (31-36); Mean Corpuscular Hemoglobin 33 pg (27-31); Mean Corpuscular Volume 96 fL (80-94); Mean Platelet Volume 8.8 fL (7.4-10.4); Platelet Count 207 10^3/uL (150-450); Red Blood Count 3.87 10^6 /uL (4.18-5.48); Red Cell Distribution Width 17 % (10-15); White Blood Count 8.3 10^3/uL (3.5-10.8)
[2022-03-01 06:02] LABS: Calcium 9.4 mg/dL (8.6-10.3); Magnesium 2.5 mg/dL (1.9-2.7); Potassium 4.4 mmol/L (3.5-5.0); eGFR CKD-EPI 34.6 (>60)
[2022-03-01] MEDS ORDERED: Furosemide 100 mg/10 ml IV VIAL ONE ×2 (07:53→13:14)
[2022-03-01] MEDS: Potassium Chloride LIQUID 20 MEQ/15 ML LIQUID PO SCH ×2 (08:05→20:49)
[2022-03-01] MEDS: Olopatadine 0.1% OPHTH (NF) 1 DROP BTL BOTH EYES SCH ×2 (08:05→20:53)
[2022-03-01] MEDS: Cholecalciferol (VIT D3) 1,000 unit TAB PO SCH (08:06)
[2022-03-01] MEDS: CEPHALEXIN 500 MG PO SCH ×3 (08:09→20:51)
[2022-03-01] MEDS: NS 0.9% IV SCH (08:26)
[2022-03-01] MEDS: FUROSEMIDE IV SCH (08:26)
[2022-03-01] MEDS: Erythromycin OPTH OINT APPLIC OINT BOTH EYES SCH ×3 (10:04→20:53)
[2022-03-01 12:54] LABS: Uric Acid 11.9 mg/dL (4.4-7.6)
[2022-03-01] MEDS ORDERED: NS 0.9% IV SCH (13:11)
[2022-03-01] MEDS ORDERED: FUROSEMIDE IV SCH (13:11)
[2022-03-01] MEDS ORDERED: Furosemide 40 mg/4 ml IV VIAL IV SLOW PU ONE (20:00)
[2022-03-01] MEDS: Polyethylene Glycol 3350 17 GM PACKET PO SCH (20:49)
[2022-03-02 05:55] LABS: ABS Basophils 0.1 10^3/ul (0-0.2); ABS Lymphocytes 2.1 10^3/ul (1.0-4.8); ABS Monocytes 1.2 10^3/ul (0-0.8); ABS Neutrophils 3.9 10^3/ul (1.5-7.7); Eosinophil % 12.4 %; Hematocrit 39 % (42-52); Hemoglobin 13.4 g/dL (14.0-18.0); Lymphocyte % 25.6 %; Mean Corpuscular HGB Conc 34 g/dL (31-36); Mean Corpuscular Hemoglobin 33 pg (27-31); Mean Corpuscular Volume 97 fL (80-94); Mean Platelet Volume 8.7 fL (7.4-10.4); Platelet Count 225 10^3/uL (150-450); Red Blood Count 4.04 10^6 /uL (4.18-5.48); Red Cell Distribution Width 17 % (10-15); White Blood Count 8.4 10^3/uL (3.5-10.8)
[2022-03-02 06:15] LABS: Calcium 9.6 mg/dL (8.6-10.3); Magnesium 2.6 mg/dL (1.9-2.7); Potassium 4.5 mmol/L (3.5-5.0); eGFR CKD-EPI 34.6 (>60)
[2022-03-02] MEDS: Potassium Chloride LIQUID 20 MEQ/15 ML LIQUID PO SCH (08:01)
[2022-03-02] MEDS: Cholecalciferol (VIT D3) 1,000 unit TAB PO SCH (08:03)
[2022-03-02] MEDS: CEPHALEXIN 500 MG PO SCH ×2 (08:03→13:31)
[2022-03-02] MEDS: Olopatadine 0.1% OPHTH (NF) 1 DROP BTL BOTH EYES SCH (08:04)
[2022-03-02] MEDS: Erythromycin OPTH OINT APPLIC OINT BOTH EYES SCH ×2 (08:07→13:31)
[2022-03-02] MEDS ORDERED: Furosemide 40 mg/4 ml IV VIAL IV SLOW PU ONE (11:06)
[2022-03-02 15:15] VITALS: BP 108/57
== END 2022-03-02 16:05 | disposition home or self-care (01) | DRG 291 ==
LOC: SUATTDRO 17:10 → MEDTELE 17:10
PROVIDERS: ADMIT Internal Medicine; ATTEND Internal Medicine

== ENCOUNTER 2022-06-08 11:56 | Inpatient (IN) ==
[2022-06-08 12:17] LABS: ABS Basophils 0.1 10^3/ul (0-0.2); ABS Eosinophils 0.3 10^3/ul (0-0.6); ABS Lymphocytes 1.4 10^3/ul (1.0-4.8); ABS Neutrophils 4.5 10^3/ul (1.5-7.7); Eosinophil % 3.8 %; Hematocrit 38 % (42-52); Hemoglobin 12.6 g/dL (14.0-18.0); Lymphocyte % 19.4 %; Mean Corpuscular HGB Conc 33 g/dL (31-36); Mean Corpuscular Hemoglobin 33 pg (27-31); Mean Corpuscular Volume 98 fL (80-94); Mean Platelet Volume 9.6 fL (7.4-10.4); Nucleated Red Blood Cells % 0.1; Platelet Count 141 10^3/uL (150-450); Red Blood Count 3.87 10^6 /uL (4.18-5.48); Red Cell Distribution Width 17 % (10-15); White Blood Count 7.3 10^3/uL (3.5-10.8)
[2022-06-08 12:26] LABS: INR 2.42 (0.89-1.11)
[2022-06-08 13:02] LABS: Albumin/Globulin Ratio 1.2 (1-3); Calcium 9.2 mg/dL (8.6-10.3); Globulin 3.3 g/dL (2-4); Potassium 4.2 mmol/L (3.5-5.0); Total Bilirubin 1.4 mg/dL (0.2-1.0); Total Protein 7.3 g/dL (6.4-8.9); eGFR CKD-EPI 32.7 (>60)
[2022-06-08] MEDS ORDERED: Furosemide 40 mg/4 ml IV VIAL IV SLOW PU ONE (13:11)
[2022-06-08 13:46] LABS: High Sensitivity Troponin 1 Hr 367 pg/mL (<20)
[2022-06-08] MEDS ORDERED: Polyethyl Glycol/Propylene Gly OPHTH.SOLN BOTH EYES PRN (15:45)
[2022-06-09] MEDS ORDERED: Polyethylene Glycol 3350 17 GM PACKET ONE (00:19)
[2022-06-09] MEDS: Triamcinolone 0.025% OINT 15 GM TUBE TOPICAL SCH ×3 (00:38→23:06)
[2022-06-09] MEDS ORDERED: Furosemide 40 mg/4 ml IV VIAL IV SCH (06:00)
[2022-06-09] MEDS: Furosemide 40 mg/4 ml IV VIAL IV SCH ×2 (06:04→12:06)
[2022-06-09 07:21] LABS: Calcium 9.3 mg/dL (8.6-10.3); eGFR CKD-EPI 36.2 (>60)
[2022-06-09] MEDS: Potassium Chloride LIQUID 20 MEQ/15 ML LIQUID PO SCH (08:53)
[2022-06-09] MEDS: Magnesium Chloride EC 64 mgTAB PO SCH (08:57)
[2022-06-09] MEDS ORDERED: Polyethylene Glycol 3350 17 GM PACKET PO SCH ×2 (09:00→21:00)
[2022-06-09] MEDS ORDERED: Saliva Substitute (NF) 1 SPRAY BTL MT PRN (11:00)
[2022-06-09] MEDS ORDERED: Magnesium Hydroxide LIQ 30 ML UDC PO PRN (16:58)
[2022-06-10] MEDS: Furosemide 40 mg/4 ml IV VIAL IV SCH ×3 (05:40→17:48)
[2022-06-10 07:10] LABS: Calcium 9.4 mg/dL (8.6-10.3); eGFR CKD-EPI 35.7 (>60)
[2022-06-10] MEDS: Potassium Chloride LIQUID 20 MEQ/15 ML LIQUID PO SCH (08:17)
[2022-06-10] MEDS: Magnesium Chloride EC 64 mgTAB PO SCH (08:18)
[2022-06-10] MEDS: Triamcinolone 0.025% OINT 15 GM TUBE TOPICAL SCH ×2 (08:21→23:53)
[2022-06-10] MEDS: Polyethylene Glycol 3350 17 GM PACKET PO SCH (23:52)
[2022-06-11] MEDS: Furosemide 40 mg/4 ml IV VIAL IV SCH ×3 (06:05→17:18)
[2022-06-11 06:55] LABS: ABS Basophils 0.1 10^3/ul (0-0.2); ABS Eosinophils 0.4 10^3/ul (0-0.6); ABS Lymphocytes 1.7 10^3/ul (1.0-4.8); Eosinophil % 6.4 %; Hematocrit 38 % (42-52); Hemoglobin 12.5 g/dL (14.0-18.0); Lymphocyte % 27.6 %; Mean Corpuscular HGB Conc 33 g/dL (31-36); Mean Corpuscular Hemoglobin 33 pg (27-31); Mean Corpuscular Volume 99 fL (80-94); Mean Platelet Volume 10.2 fL (7.4-10.4); Nucleated Red Blood Cells % 0.1; Platelet Count 136 10^3/uL (150-450); Red Blood Count 3.82 10^6 /uL (4.18-5.48); Red Cell Distribution Width 17 % (10-15)
[2022-06-11 07:11] LABS: Calcium 9.1 mg/dL (8.6-10.3); Potassium 3.9 mmol/L (3.5-5.0); eGFR CKD-EPI 37.7 (>60)
[2022-06-11] MEDS: Potassium Chloride LIQUID 20 MEQ/15 ML LIQUID PO SCH (08:46)
[2022-06-11] MEDS: Triamcinolone 0.025% OINT 15 GM TUBE TOPICAL SCH ×2 (08:47→21:25)
[2022-06-11] MEDS: Polyethylene Glycol 3350 17 GM PACKET PO SCH (21:06)
[2022-06-12] MEDS: Furosemide 40 mg/4 ml IV VIAL IV SCH ×2 (05:30→11:42)
[2022-06-12 07:18] LABS: Calcium 9.2 mg/dL (8.6-10.3); Magnesium 2.8 mg/dL (1.9-2.7); eGFR CKD-EPI 41.4 (>60)
[2022-06-12] MEDS: Potassium Chloride LIQUID 20 MEQ/15 ML LIQUID PO SCH (08:59)
[2022-06-12] MEDS: Triamcinolone 0.025% OINT 15 GM TUBE TOPICAL SCH (09:03)
[2022-06-12 10:58] VITALS: BP 98/61
[2022-06-13 13:16] LABS: ALP Intestine 2.9 IU/L (0.0-11.0); ALP Liver 1 176.7 IU/L (16.2-70.2); ALP Liver 1% 78.9 % (27.8-76.3); ALP Liver 2 18.6 IU/L (0.0-5.8); ALP Liver 2% 8.3 % (0.0-8.0); ALP Placental Not Present; Alkaline Phosphate 224 U/L (40 - 129)
== END 2022-06-12 12:50 | DRG 291 ==
LOC: EDHOLD 11:56 → ED 11:56 → OBSVTOIN 15:29 → SUATTDRO 15:29 → MED 22:59
PROVIDERS: ADMIT Internal Medicine; ATTEND Internal Medicine

== ENCOUNTER 2022-07-21 07:16 | Inpatient (IN) ==
[2022-07-21 08:24] LABS: ABS Basophils 0.1 10^3/ul (0-0.2); ABS Eosinophils 0.4 10^3/ul (0-0.6); ABS Lymphocytes 1.5 10^3/ul (1.0-4.8); ABS Monocytes 1.1 10^3/ul (0-0.8); ABS Neutrophils 4.1 10^3/ul (1.5-7.7); Eosinophil % 5.6 %; Hematocrit 39 % (42-52); Hemoglobin 12.9 g/dL (14.0-18.0); Lymphocyte % 20.7 %; Mean Corpuscular HGB Conc 34 g/dL (31-36); Mean Corpuscular Hemoglobin 33 pg (27-31); Mean Corpuscular Volume 99 fL (80-94); Mean Platelet Volume 9.8 fL (7.4-10.4); Nucleated Red Blood Cells % 0.1; Platelet Count 167 10^3/uL (150-450); Red Blood Count 3.89 10^6 /uL (4.18-5.48); Red Cell Distribution Width 17 % (10-15); White Blood Count 7.2 10^3/uL (3.5-10.8)
[2022-07-21 08:48] LABS: High Sens Troponin Baseline 339 pg/mL (<20)
[2022-07-21 09:01] LABS: ALT 25 U/L (7-52); Albumin 3.9 g/dL (3.2-5.2); Albumin/Globulin Ratio 1.2 (1-3); Alkaline Phosphatase 216 U/L (35-149); Blood Urea Nitrogen 44 mg/dL (6-24); CO2 Carbon Dioxide 30 mmol/L (22-32); Calcium 9.1 mg/dL (8.6-10.3); Chloride 95 mmol/L (101-111); Globulin 3.3 g/dL (2-4); Glucose 100 mg/dL (70-100); Sodium 133 mmol/L (135-145); Total Protein 7.2 g/dL (6.4-8.9); eGFR CKD-EPI 39.9 (>60)
[2022-07-21 09:04] LABS: Anion Gap 8 mmol/L (2-11)
[2022-07-21 09:57] LABS: High Sensitivity Troponin 1 Hr 380 pg/mL (<20)
[2022-07-21] MEDS ORDERED: Furosemide 20 mg/2 ml IV VIAL IV SLOW PU ONE (10:05)
[2022-07-21 11:34] LABS: Potassium Redraw 4.1 mmol/L (3.5-5.0)
[2022-07-21] MEDS ORDERED: Polyethylene Glycol 3350 17 GM PACKET PO PRN (13:14)
[2022-07-21] MEDS: Furosemide 100 mg/10 ml IV 100 MG in NS 0.9% 100 ml BAG 90 ML IV SCH ×3 (15:21→21:01)
[2022-07-22] MEDS: Furosemide 100 mg/10 ml IV 100 MG in NS 0.9% 100 ml BAG 90 ML IV SCH ×4 (03:17→21:47)
[2022-07-22 06:29] LABS: ABS Basophils 0.1 10^3/ul (0-0.2); ABS Eosinophils 0.3 10^3/ul (0-0.6); ABS Lymphocytes 1.8 10^3/ul (1.0-4.8); ABS Monocytes 0.9 10^3/ul (0-0.8); ABS Neutrophils 3.7 10^3/ul (1.5-7.7); Hematocrit 38 % (42-52); Hemoglobin 12.8 g/dL (14.0-18.0); Lymphocyte % 26.9 %; Mean Corpuscular HGB Conc 33 g/dL (31-36); Mean Corpuscular Hemoglobin 33 pg (27-31); Mean Corpuscular Volume 99 fL (80-94); Mean Platelet Volume 9.7 fL (7.4-10.4); Nucleated Red Blood Cells % 0.1; Platelet Count 150 10^3/uL (150-450); Red Blood Count 3.88 10^6 /uL (4.18-5.48); Red Cell Distribution Width 18 % (10-15); White Blood Count 6.9 10^3/uL (3.5-10.8)
[2022-07-22 06:55] LABS: Albumin 3.5 g/dL (3.2-5.2); Albumin/Globulin Ratio 1.2 (1-3); Total Bilirubin 1.9 mg/dL (0.2-1.0); Total Protein 6.5 g/dL (6.4-8.9); eGFR CKD-EPI 42.4 (>60)
[2022-07-22] MEDS: Cholecalciferol (VIT D3) 1,000 unit TAB PO SCH (08:53)
[2022-07-22 13:11] LABS: Ferritin 160.3 ng/mL (24-336)
[2022-07-22] MEDS ORDERED: Chlorothiazide IV 500 mg VIAL IV ONE (18:15)
[2022-07-22] MEDS ORDERED: NS 0.9% IV ONE (20:00)
[2022-07-22] MEDS ORDERED: CHLOROTHIAZIDE IV ONE (20:00)
[2022-07-22] MEDS ORDERED: acetaZOLAMIDE IV 500 MG in NS 0.9% 50 ML 50 ML IVPB SCH (20:00)
[2022-07-22] MEDS ORDERED: Heparin 1,000 UNIT/ML 10 ml (10,000 UNITS) CATHLAB/DIALYSIS DIALYSIS ONE (20:00)
[2022-07-22] MEDS ORDERED: Polyethylene Glycol 3350 17 GM PACKET PO SCH (21:00)
[2022-07-22] MEDS: Ure-Na 15 GM POWD.PACK PO SCH (21:32)
[2022-07-22] MEDS: Bumetanide IV 10 MG in Premix IV 0 ML IV SCH (23:29)
[2022-07-23] MEDS: Bumetanide IV 10 MG in Premix IV 0 ML IV SCH ×5 (03:04→23:14)
[2022-07-23 06:30] LABS: Hematocrit 36 % (42-52); Hemoglobin 12.2 g/dL (14.0-18.0); Mean Corpuscular HGB Conc 34 g/dL (31-36); Mean Corpuscular Hemoglobin 34 pg (27-31); Mean Corpuscular Volume 99 fL (80-94); Mean Platelet Volume 9.7 fL (7.4-10.4); Platelet Count 149 10^3/uL (150-450); Red Blood Count 3.63 10^6 /uL (4.18-5.48); Red Cell Distribution Width 17 % (10-15); White Blood Count 6.4 10^3/uL (3.5-10.8)
[2022-07-23 07:01] LABS: Albumin 3.4 g/dL (3.2-5.2); Albumin/Globulin Ratio 1.1 (1-3); Calcium 8.8 mg/dL (8.6-10.3); Globulin 3.1 g/dL (2-4); Magnesium 2.6 mg/dL (1.9-2.7); Potassium 3.3 mmol/L (3.5-5.0); Total Bilirubin 1.8 mg/dL (0.2-1.0); Total Protein 6.5 g/dL (6.4-8.9); eGFR CKD-EPI 40.8 (>60)
[2022-07-23] MEDS ORDERED: Bumetanide IV 10 MG in Premix IV 0 ML IV SCH (07:30)
[2022-07-23] MEDS: Ure-Na 15 GM POWD.PACK PO SCH ×3 (09:15→21:13)
[2022-07-23] MEDS: Cholecalciferol (VIT D3) 1,000 unit TAB PO SCH ×2 (09:15→11:05)
[2022-07-23] MEDS ORDERED: Potassium EFFERVES 25 meq TAB PO ONE (09:34)
[2022-07-23] MEDS ORDERED: Chlorothiazide IV 500 mg VIAL IV ONE (12:32)
[2022-07-23] MEDS ORDERED: CHLOROTHIAZIDE IV ONE (12:33)
[2022-07-23] MEDS ORDERED: NS 0.9% IV ONE (12:33)
[2022-07-23] MEDS ORDERED: Sulfur Hexaflouride MICROSPHR 25 MG VIAL ONE (13:32)
[2022-07-23] MEDS ORDERED: Potassium Chlor 20 meq TAB.ER PO ONE (15:18)
[2022-07-23 16:45] LABS: Calcium 8.8 mg/dL (8.6-10.3); Potassium 3.4 mmol/L (3.5-5.0); eGFR CKD-EPI 41.8 (>60)
[2022-07-23] MEDS ORDERED: Polyethylene Glycol 3350 17 GM PACKET PO SCH (21:00)
[2022-07-24] MEDS: Bumetanide IV 10 MG in Premix IV 0 ML IV SCH ×5 (05:18→23:12)
[2022-07-24 07:00] LABS: Calcium 9.2 mg/dL (8.6-10.3); Potassium 3.5 mmol/L (3.5-5.0); eGFR CKD-EPI 43.7 (>60)
[2022-07-24] MEDS ORDERED: Potassium Chlor 20 meq TAB.ER PO SCH (10:07)
[2022-07-24] MEDS ORDERED: Chlorothiazide IV 500 MG in NS 0.9% 50 ML 50 ML IV ONE (10:07)
[2022-07-24] MEDS: Cholecalciferol (VIT D3) 1,000 unit TAB PO SCH (10:30)
[2022-07-24] MEDS: Ure-Na 15 GM POWD.PACK PO SCH ×2 (10:39→22:55)
[2022-07-24] MEDS: Polyethylene Glycol 3350 17 GM PACKET PO SCH ×3 (11:24→22:48)
[2022-07-24 17:10] LABS: Calcium 9.5 mg/dL (8.6-10.3); Potassium 3.4 mmol/L (3.5-5.0); eGFR CKD-EPI 41.8 (>60)
[2022-07-25] MEDS: Bumetanide IV 10 MG in Premix IV 0 ML IV SCH ×4 (05:09→23:17)
[2022-07-25 07:01] LABS: Albumin 4.1 g/dL (3.2-5.2); Albumin/Globulin Ratio 1.1 (1-3); Calcium 9.4 mg/dL (8.6-10.3); Globulin 3.9 g/dL (2-4); Potassium 3.3 mmol/L (3.5-5.0); Total Bilirubin 1.6 mg/dL (0.2-1.0); eGFR CKD-EPI 42.7 (>60)
[2022-07-25] MEDS: Cholecalciferol (VIT D3) 1,000 unit TAB PO SCH (09:36)
[2022-07-25] MEDS: Polyethylene Glycol 3350 17 GM PACKET PO SCH ×2 (09:38→23:13)
[2022-07-25] MEDS: Ure-Na 15 GM POWD.PACK PO SCH ×2 (09:38→23:13)
[2022-07-25] MEDS: Potassium Chlor 20 meq TAB.ER PO SCH (09:38)
[2022-07-25] MEDS ORDERED: Chlorothiazide IV 500 MG in NS 0.9% 50 ML 50 ML IV ONE (12:13)
[2022-07-25 15:27] LABS: Calcium 9.5 mg/dL (8.6-10.3); Potassium 3.1 mmol/L (3.5-5.0); eGFR CKD-EPI 36.7 (>60)
[2022-07-25] MEDS ORDERED: Potassium Chlor 20 meq TAB.ER PO ONE (15:33)
[2022-07-26] MEDS: Bumetanide IV 10 MG in Premix IV 0 ML IV SCH ×6 (04:20→19:36)
[2022-07-26 06:37] LABS: Calcium 9.5 mg/dL (8.6-10.3); Magnesium 2.8 mg/dL (1.9-2.7); Potassium 3.1 mmol/L (3.5-5.0); eGFR CKD-EPI 37.7 (>60)
[2022-07-26] MEDS: Cholecalciferol (VIT D3) 1,000 unit TAB PO SCH (07:58)
[2022-07-26] MEDS: Potassium Chlor 20 meq TAB.ER PO SCH (07:58)
[2022-07-26] MEDS: Ure-Na 15 GM POWD.PACK PO SCH ×2 (08:05→22:40)
[2022-07-26] MEDS ORDERED: Potassium Chlor 20 meq TAB.ER PO ONE ×2 (09:14→17:04)
[2022-07-26] MEDS ORDERED: Chlorothiazide IV 500 MG in NS 0.9% 50 ML 50 ML IV ONE (09:15)
[2022-07-26 15:16] LABS: Calcium 9.6 mg/dL (8.6-10.3); Potassium 3.1 mmol/L (3.5-5.0); eGFR CKD-EPI 33.5 (>60)
[2022-07-26] MEDS: Polyethylene Glycol 3350 17 GM PACKET PO SCH ×2 (22:10→22:40)
[2022-07-27] MEDS: Bumetanide IV 10 MG in Premix IV 0 ML IV SCH ×2 (00:39→05:43)
[2022-07-27 07:15] LABS: Calcium 10.1 mg/dL (8.6-10.3); Potassium 3.3 mmol/L (3.5-5.0); eGFR CKD-EPI 31.1 (>60)
[2022-07-27] MEDS: Ure-Na 15 GM POWD.PACK PO SCH (08:07)
[2022-07-27] MEDS: Potassium Chlor 20 meq TAB.ER PO SCH (08:08)
[2022-07-27] MEDS: Cholecalciferol (VIT D3) 1,000 unit TAB PO SCH (08:08)
[2022-07-27] MEDS ORDERED: Potassium Chlor 20 meq TAB.ER PO ONE (11:29)
[2022-07-27 13:07] LABS: Vitamin D Total 25(OH) 57.9 ng/mL (20-50)
[2022-07-27] MEDS: Lactulose 30 ml UDC PO SCH ×2 (14:47→20:29)
[2022-07-27] MEDS: Polyethylene Glycol 3350 17 GM PACKET PO SCH (20:46)
[2022-07-28 08:42] LABS: ABS Basophils 0.1 10^3/ul (0-0.2); ABS Eosinophils 0.6 10^3/ul (0-0.6); ABS Lymphocytes 1.8 10^3/ul (1.0-4.8); ABS Monocytes 1.2 10^3/ul (0-0.8); ABS Neutrophils 4.2 10^3/ul (1.5-7.7); Eosinophil % 7.1 %; Hematocrit 45 % (42-52); Hemoglobin 15.4 g/dL (14.0-18.0); Mean Corpuscular HGB Conc 35 g/dL (31-36); Mean Corpuscular Hemoglobin 34 pg (27-31); Mean Corpuscular Volume 98 fL (80-94); Mean Platelet Volume 9.3 fL (7.4-10.4); Nucleated Red Blood Cells % 0.2; Platelet Count 230 10^3/uL (150-450); Red Blood Count 4.57 10^6 /uL (4.18-5.48); Red Cell Distribution Width 17 % (10-15); White Blood Count 7.8 10^3/uL (3.5-10.8)
[2022-07-28 08:46] LABS: Calcium 10.2 mg/dL (8.6-10.3); Globulin 3.9 g/dL (2-4); Magnesium 3.4 mg/dL (1.9-2.7); Potassium 3.6 mmol/L (3.5-5.0); Total Bilirubin 1.3 mg/dL (0.2-1.0); Total Protein 7.9 g/dL (6.4-8.9); eGFR CKD-EPI 30.1 (>60)
[2022-07-28] MEDS: Potassium Chlor 20 meq TAB.ER PO SCH ×2 (09:29→10:01)
[2022-07-28] MEDS: Cholecalciferol (VIT D3) 1,000 unit TAB PO SCH (09:30)
[2022-07-28] MEDS ORDERED: Potassium Chloride LIQUID 20 MEQ/15 ML LIQUID PO ONE (10:18)
[2022-07-28] MEDS: Polyethylene Glycol 3350 17 GM PACKET PO SCH (21:40)
[2022-07-29 02:05] LABS: Hematocrit 46 % (42-52); Mean Corpuscular HGB Conc 33 g/dL (31-36); Mean Corpuscular Hemoglobin 33 pg (27-31); Mean Corpuscular Volume 100 fL (80-94); Mean Platelet Volume 9.1 fL (7.4-10.4); Platelet Count 229 10^3/uL (150-450); Red Blood Count 4.59 10^6 /uL (4.18-5.48); Red Cell Distribution Width 18 % (10-15); White Blood Count 7.3 10^3/uL (3.5-10.8)
[2022-07-29 02:40] LABS: Albumin 3.9 g/dL (3.2-5.2); Calcium 9.7 mg/dL (8.6-10.3); Globulin 3.9 g/dL (2-4); Potassium 3.7 mmol/L (3.5-5.0); Total Bilirubin 1.5 mg/dL (0.2-1.0); Total Protein 7.8 g/dL (6.4-8.9); eGFR CKD-EPI 32.9 (>60)
[2022-07-29] MEDS: Cholecalciferol (VIT D3) 1,000 unit TAB PO SCH (08:45)
[2022-07-29] MEDS: Potassium Chlor 20 meq TAB.ER PO SCH (13:13)
[2022-07-29 13:27] LABS: Urine Appearance Clear; Urine Bilirubin Negative (Negative); Urine Blood Negative (Negative); Urine Color Yellow; Urine Glucose Negative (Negative); Urine Ketones Negative (Negative); Urine Nitrite Negative (Negative); Urine Protein Negative (Negative); Urine Specific Gravity 1.015 (1.005-1.030); Urine Urobilinogen 1.0 (Negative) (Negative)
[2022-07-29] MEDS: Lactulose 30 ml UDC PO SCH ×2 (15:12→21:41)
[2022-07-29] MEDS: Polyethylene Glycol 3350 17 GM PACKET PO SCH (21:41)
[2022-07-30 06:12] LABS: ABS Basophils 0.1 10^3/ul (0-0.2); ABS Eosinophils 0.5 10^3/ul (0-0.6); ABS Lymphocytes 1.8 10^3/ul (1.0-4.8); ABS Monocytes 0.9 10^3/ul (0-0.8); ABS Neutrophils 3.1 10^3/ul (1.5-7.7); Eosinophil % 7.9 %; Hematocrit 45 % (42-52); Hemoglobin 15.2 g/dL (14.0-18.0); Lymphocyte % 28.8 %; Mean Corpuscular HGB Conc 34 g/dL (31-36); Mean Corpuscular Hemoglobin 34 pg (27-31); Mean Corpuscular Volume 99 fL (80-94); Mean Platelet Volume 9.4 fL (7.4-10.4); Nucleated Red Blood Cells % 0.1; Platelet Count 224 10^3/uL (150-450); Red Blood Count 4.53 10^6 /uL (4.18-5.48); Red Cell Distribution Width 18 % (10-15); White Blood Count 6.4 10^3/uL (3.5-10.8)
[2022-07-30 06:55] LABS: Calcium 9.9 mg/dL (8.6-10.3); Potassium 3.6 mmol/L (3.5-5.0); eGFR CKD-EPI 38.8 (>60)
[2022-07-30] MEDS: Lactulose 30 ml UDC PO SCH ×2 (08:28→21:39)
[2022-07-30] MEDS: Cholecalciferol (VIT D3) 1,000 unit TAB PO SCH (08:28)
[2022-07-30 09:43] LABS: Magnesium 2.8 mg/dL (1.9-2.7); Phosphorus 4.2 mg/dL (2.5-5.0)
[2022-07-30] MEDS: Potassium Chlor 20 meq TAB.ER PO SCH (10:56)
[2022-07-30] MEDS: Potassium Chloride LIQUID 20 MEQ/15 ML LIQUID PO SCH (12:21)
[2022-07-30] MEDS ORDERED: Polyethylene Glycol 3350 17 GM PACKET PO SCH (21:00)
[2022-07-30] MEDS: Magnesium Hydroxide LIQ 30 ML UDC PO SCH (21:40)
[2022-07-31 06:29] LABS: ABS Basophils 0.1 10^3/ul (0-0.2); ABS Eosinophils 0.5 10^3/ul (0-0.6); ABS Lymphocytes 2.2 10^3/ul (1.0-4.8); ABS Monocytes 0.9 10^3/ul (0-0.8); ABS Neutrophils 3.7 10^3/ul (1.5-7.7); Eosinophil % 6.7 %; Hematocrit 43 % (42-52); Hemoglobin 14.8 g/dL (14.0-18.0); Lymphocyte % 29.4 %; Mean Corpuscular HGB Conc 34 g/dL (31-36); Mean Corpuscular Hemoglobin 33 pg (27-31); Mean Corpuscular Volume 98 fL (80-94); Mean Platelet Volume 9.3 fL (7.4-10.4); Nucleated Red Blood Cells % 0.1; Platelet Count 204 10^3/uL (150-450); Red Blood Count 4.42 10^6 /uL (4.18-5.48); Red Cell Distribution Width 17 % (10-15); White Blood Count 7.4 10^3/uL (3.5-10.8)
[2022-07-31 06:40] LABS: Albumin 3.9 g/dL (3.2-5.2); Calcium 9.9 mg/dL (8.6-10.3); Magnesium 2.5 mg/dL (1.9-2.7); Potassium 3.7 mmol/L (3.5-5.0); Total Bilirubin 1.6 mg/dL (0.2-1.0)
[2022-07-31 06:46] LABS: Globulin 3.8 g/dL (2-4); Total Protein 7.7 g/dL (6.4-8.9); eGFR CKD-EPI 41.4 (>60)
[2022-07-31] MEDS: Cholecalciferol (VIT D3) 1,000 unit TAB PO SCH (11:07)
[2022-07-31] MEDS: Lactulose 30 ml UDC PO SCH ×2 (11:08→23:43)
[2022-07-31] MEDS: Magnesium Hydroxide LIQ 30 ML UDC PO SCH ×2 (11:09→23:43)
[2022-07-31] MEDS: Potassium Chloride LIQUID 20 MEQ/15 ML LIQUID PO SCH (11:20)
[2022-07-31] MEDS ORDERED: Potassium Chlor 20 meq TAB.ER PO ONE (13:48)
[2022-08-01] MEDS: Cholecalciferol (VIT D3) 1,000 unit TAB PO SCH (09:24)
[2022-08-01] MEDS: Lactulose 30 ml UDC PO SCH (09:24)
[2022-08-01] MEDS: Potassium Chloride LIQUID 20 MEQ/15 ML LIQUID PO SCH (09:25)
[2022-08-01] MEDS: Magnesium Hydroxide LIQ 30 ML UDC PO SCH (09:25)
[2022-08-01 11:43] VITALS: BP 143/81
== END 2022-08-01 13:00 | disposition home health service (06) | DRG 291 ==
LOC: ED 07:16 → EDHOLD 10:22 → SUATTDRO 10:22 → EDHOLD 13:08 → MEDTELE 13:39
PROVIDERS: ADMIT Internal Medicine; ATTEND Internal Medicine

== ENCOUNTER 2022-08-02 11:33 | Observation (INO) ==
[2022-08-02 13:05] LABS: ABS Basophils 0.1 10^3/ul (0-0.2); ABS Eosinophils 0.2 10^3/ul (0-0.6); ABS Lymphocytes 1.9 10^3/ul (1.0-4.8); ABS Neutrophils 4.9 10^3/ul (1.5-7.7); Eosinophil % 2.1 %; Hematocrit 42 % (42-52); Hemoglobin 14.7 g/dL (14.0-18.0); Lymphocyte % 23.1 %; Mean Corpuscular HGB Conc 35 g/dL (31-36); Mean Corpuscular Hemoglobin 34 pg (27-31); Mean Corpuscular Volume 96 fL (80-94); Mean Platelet Volume 10.3 fL (7.4-10.4); Nucleated Red Blood Cells % 0.1; Platelet Count 209 10^3/uL (150-450); Red Blood Count 4.34 10^6 /uL (4.18-5.48); Red Cell Distribution Width 17 % (10-15); White Blood Count 8.1 10^3/uL (3.5-10.8)
[2022-08-02 13:25] LABS: High Sens Troponin Baseline 481 pg/mL (<20)
[2022-08-02 13:55] LABS: Urine Appearance Clear; Urine Bilirubin Negative (Negative); Urine Blood Negative (Negative); Urine Color Yellow; Urine Glucose Negative (Negative); Urine Ketones Negative (Negative); Urine Nitrite Negative (Negative); Urine Protein Negative (Negative); Urine Specific Gravity 1.025 (1.005-1.030); Urine Urobilinogen 0.2 (Negative) (Negative); Urine pH 5.5 (5.0-9.0)
[2022-08-02 13:57] LABS: Albumin 4.4 g/dL (3.2-5.2); Anion Gap 8 mmol/L (2-11); CO2 Carbon Dioxide 21 mmol/L (22-32); Calcium 9.2 mg/dL (8.6-10.3); Chloride 96 mmol/L (101-111); Sodium 125 mmol/L (135-145)
[2022-08-02 14:01] LABS: ALT 30 U/L (7-52); Alcohol, S < 13 mg/dL (<13); Alkaline Phosphatase 166 U/L (35-149); Blood Urea Nitrogen 61 mg/dL (6-24); Globulin 4.2 g/dL (2-4); Glucose 128 mg/dL (70-100); Total Protein 8.6 g/dL (6.4-8.9)
[2022-08-02 14:30] LABS: High Sensitivity Troponin 1 Hr 508 pg/mL (<20)
[2022-08-02 16:13] LABS: Potassium Redraw 4.6 mmol/L (3.5-5.0)
[2022-08-02] MEDS ORDERED: NS 0.9% 250 ml 250 ML IV ONE (16:25)
[2022-08-02 16:40] LABS: Calcium 9.5 mg/dL (8.6-10.3); Magnesium 2.4 mg/dL (1.9-2.7); Potassium 4.5 mmol/L (3.5-5.0); eGFR CKD-EPI 41.8 (>60)
[2022-08-02] MEDS ORDERED: Metoprolol Tartrate 5 mg VIAL 5 ml VIAL (1 mg/ml) IV ONE (17:11)
[2022-08-02 17:23] LABS: High Sensitivity Troponin 3 Hr 490 pg/mL (<20)
[2022-08-02 18:49] LABS: TSH Ultra Thyroid Stim Horm 4.41 mcIU/mL (0.34-5.60)
[2022-08-02] MEDS ORDERED: NS 0.9% 250 ml 250 ML IV SCH (21:00)
[2022-08-02] MEDS: Polyethylene Glycol 3350 17 GM PACKET PO SCH (21:31)
[2022-08-03 09:08] LABS: ABS Basophils 0.1 10^3/ul (0-0.2); ABS Eosinophils 0.3 10^3/ul (0-0.6); ABS Lymphocytes 1.7 10^3/ul (1.0-4.8); ABS Monocytes 0.8 10^3/ul (0-0.8); Eosinophil % 4.1 %; Hematocrit 39 % (42-52); Hemoglobin 13.5 g/dL (14.0-18.0); Lymphocyte % 24.9 %; Mean Corpuscular HGB Conc 35 g/dL (31-36); Mean Corpuscular Hemoglobin 33 pg (27-31); Mean Corpuscular Volume 97 fL (80-94); Mean Platelet Volume 9.9 fL (7.4-10.4); Nucleated Red Blood Cells % 0.1; Platelet Count 140 10^3/uL (150-450); Red Blood Count 4.05 10^6 /uL (4.18-5.48); Red Cell Distribution Width 17 % (10-15); White Blood Count 6.8 10^3/uL (3.5-10.8)
[2022-08-03 09:30] LABS: Albumin 3.7 g/dL (3.2-5.2); Albumin/Globulin Ratio 1.1 (1-3); Calcium 9.3 mg/dL (8.6-10.3); Globulin 3.3 g/dL (2-4); Total Bilirubin 2.6 mg/dL (0.2-1.0); eGFR CKD-EPI 51.3 (>60)
[2022-08-03] MEDS: Cholecalciferol (VIT D3) 1,000 unit TAB PO SCH (11:33)
[2022-08-03 12:33] LABS: Direct Bilirubin 0.8 mg/dL (0.03-0.18); Indirect Bilirubin 1.8 mg/dL (0.3-1.0)
[2022-08-03] MEDS: Lactulose 30 ml UDC PO SCH ×2 (16:35→20:02)
[2022-08-03] MEDS ORDERED: Acetaminophen IV 1 GM/100ML 1,000 MG/100 ML BAG IV ONE (18:15)
[2022-08-03] MEDS: Polyethylene Glycol 3350 17 GM PACKET PO SCH (20:03)
[2022-08-03] MEDS: Polymyx/Trimethoprim OPTH.SOL 1 BTL RIGHT EYE SCH (23:53)
[2022-08-04] MEDS: Cholecalciferol (VIT D3) 1,000 unit TAB PO SCH (08:21)
[2022-08-04] MEDS: Lactulose 30 ml UDC PO SCH ×2 (08:21→13:08)
[2022-08-04] MEDS: Polymyx/Trimethoprim OPTH.SOL 1 BTL RIGHT EYE SCH ×2 (08:21→13:16)
[2022-08-04 09:49] LABS: ABS Basophils 0.1 10^3/ul (0-0.2); ABS Eosinophils 0.4 10^3/ul (0-0.6); ABS Lymphocytes 1.4 10^3/ul (1.0-4.8); ABS Monocytes 0.8 10^3/ul (0-0.8); ABS Neutrophils 4.1 10^3/ul (1.5-7.7); Eosinophil % 6.1 %; Hematocrit 40 % (42-52); Hemoglobin 13.7 g/dL (14.0-18.0); Lymphocyte % 20.4 %; Mean Corpuscular HGB Conc 34 g/dL (31-36); Mean Corpuscular Hemoglobin 34 pg (27-31); Mean Corpuscular Volume 98 fL (80-94); Mean Platelet Volume 10.1 fL (7.4-10.4); Platelet Count 153 10^3/uL (150-450); Red Cell Distribution Width 17 % (10-15); White Blood Count 6.8 10^3/uL (3.5-10.8)
[2022-08-04 09:54] LABS: INR 2.14 (0.88-1.18)
[2022-08-04 10:37] LABS: Albumin 3.9 g/dL (3.2-5.2); Albumin/Globulin Ratio 1.1 (1-3); Calcium 9.4 mg/dL (8.6-10.3); Globulin 3.7 g/dL (2-4); Total Bilirubin 2.4 mg/dL (0.2-1.0); Total Protein 7.6 g/dL (6.4-8.9); eGFR CKD-EPI 57.9 (>60)
[2022-08-04 11:34] VITALS: BP 108/59
== END 2022-08-04 14:35 ==
LOC: ED 11:33 → EDHOLD 11:33 → SUATTDRO 17:02 → MEDTELE 08-03 00:41
PROVIDERS: ADMIT Internal Medicine; ATTEND Internal Medicine

== ENCOUNTER 2022-08-07 10:07 | Inpatient (IN) ==
[2022-08-07 11:57] LABS: Hematocrit 39 % (42-52); Hemoglobin 13.2 g/dL (14.0-18.0); Mean Corpuscular HGB Conc 34 g/dL (31-36); Mean Corpuscular Hemoglobin 33 pg (27-31); Mean Corpuscular Volume 97 fL (80-94); Mean Platelet Volume 9.6 fL (7.4-10.4); Platelet Count 172 10^3/uL (150-450); Red Blood Count 4.02 10^6 /uL (4.18-5.48); Red Cell Distribution Width 17 % (10-15); White Blood Count 16.7 10^3/uL (3.5-10.8)
[2022-08-07 11:58] LABS: Urine Appearance Clear; Urine Bilirubin Negative (Negative); Urine Blood Negative (Negative); Urine Color Yellow; Urine Glucose 3+(>=500 mg/dL) (Negative); Urine Ketones Negative (Negative); Urine Nitrite Negative (Negative); Urine Protein Negative (Negative); Urine Specific Gravity 1.013 (1.002-1.030); Urine Urobilinogen Negative (Negative)
[2022-08-07 11:58] LABS: Venous Bicarbonate HCO3 23.4 mmol/L (24-28)
[2022-08-07 12:11] LABS: INR 2.69 (0.88-1.18)
[2022-08-07] MEDS: NS 0.9% 500 ml BAG 500 ML IV ONE ×2 (12:26→12:34)
[2022-08-07 12:34] LABS: ALT 23 U/L (7-52); AST 42 U/L (13-39); Albumin 3.4 g/dL (3.2-5.2); Albumin/Globulin Ratio 1.1 (1-3); Alcohol, S < 13 mg/dL (<13); Alkaline Phosphatase 154 U/L (35-149); Anion Gap 10 mmol/L (2-11); Blood Urea Nitrogen 53 mg/dL (6-24); C Reactive Protein 64.78 mg/L (<8.01); CO2 Carbon Dioxide 23 mmol/L (22-32); Calcium 8.7 mg/dL (8.6-10.3); Chloride 100 mmol/L (101-111); Creatinine, Serum 1.62 mg/dL (0.67-1.17); Globulin 3.2 g/dL (2-4); Glucose 128 mg/dL (70-100); Lipase 65 U/L (11.0-82.0); Magnesium 2.1 mg/dL (1.9-2.7); Potassium 3.5 mmol/L (3.5-5.0); Sodium 133 mmol/L (135-145); Total Protein 6.6 g/dL (6.4-8.9); eGFR CKD-EPI 40.8 (>60)
[2022-08-07 12:38] LABS: ABS Basophils 0.1 10^3/ul (0-0.2); ABS Lymphocytes 1.2 10^3/ul (1.0-4.8); ABS Monocytes 1.7 10^3/ul (0-0.8); ABS Neutrophils 13.8 10^3/ul (1.5-7.7); Eosinophil % 0.1 %; Lymphocyte % 7.2 %
[2022-08-07] MEDS ORDERED: Iodixanol (CONTRAST) 320 MG/ML 100 ML SDV IV ONE (13:14)
[2022-08-07] MEDS ORDERED: Cefepime 1 GM in Dextrose 1 GM/50 ML BAG IV ONE (13:16)
[2022-08-07] MEDS ORDERED: Olopatadine 0.1% OPHTH (NF) 1 DROP BTL BOTH EYES PRN (15:53)
[2022-08-07] MEDS ORDERED: cefoTAXime (*) (NF) 2 GM VIAL IVPB SCH (16:00)
[2022-08-07] MEDS: Lactulose 30 ml UDC PO SCH ×2 (16:26→22:53)
[2022-08-07] MEDS: metroNIDAZOLE IV 500 MG/100ML 500 MG/100 ML BAG IVPB SCH (16:26)
[2022-08-07] MEDS: Acetaminophen IV 1 GM/100ML 1,000 MG/100 ML BAG IV PRN (18:16)
[2022-08-07] MEDS ORDERED: NS 0.9% 500 ml BAG 500 ML IV ONE (20:14)
[2022-08-07] MEDS: cefTRIAXone 2 gm/50 mL D5W 2 GM/50 ML BAG IV SCH (21:23)
[2022-08-07] MEDS: Olopatadine 0.1% OPHTH (NF) 1 DROP BTL BOTH EYES SCH (21:37)
[2022-08-07] MEDS: Potassium Chlor 20 meq TAB.ER PO SCH (21:37)
[2022-08-07] MEDS: CMC:Ketoconazole 2 % CREAM (NF) 30 GM TUBE TOPICAL SCH (21:37)
[2022-08-08] MEDS: metroNIDAZOLE IV 500 MG/100ML 500 MG/100 ML BAG IVPB SCH ×3 (00:03→17:59)
[2022-08-08] MEDS: Acetaminophen IV 1 GM/100ML 1,000 MG/100 ML BAG IV PRN (05:04)
[2022-08-08 05:16] LABS: ABS Lymphocytes 1.1 10^3/ul (1.0-4.8); ABS Monocytes 1.4 10^3/ul (0-0.8); ABS Neutrophils 14.4 10^3/ul (1.5-7.7); Eosinophil % 0.2 %; Hematocrit 38 % (42-52); Hemoglobin 13.1 g/dL (14.0-18.0); Lymphocyte % 6.7 %; Mean Corpuscular HGB Conc 35 g/dL (31-36); Mean Corpuscular Hemoglobin 33 pg (27-31); Mean Corpuscular Volume 96 fL (80-94); Mean Platelet Volume 9.7 fL (7.4-10.4); Platelet Count 162 10^3/uL (150-450); Red Blood Count 3.94 10^6 /uL (4.18-5.48); Red Cell Distribution Width 17 % (10-15)
[2022-08-08 05:59] LABS: Albumin 2.9 g/dL (3.2-5.2); Calcium 7.9 mg/dL (8.6-10.3); Creatinine, Serum 1.3 mg/dL (0.67-1.17); Globulin 2.8 g/dL (2-4); Potassium 3.2 mmol/L (3.5-5.0); Total Protein 5.7 g/dL (6.4-8.9); eGFR CKD-EPI 53.2 (>60)
[2022-08-08] MEDS ORDERED: Potassium Chloride LIQUID 20 MEQ/15 ML LIQUID PO ONE (08:09)
[2022-08-08] MEDS: Potassium Chlor 20 meq TAB.ER PO SCH ×2 (08:36→21:38)
[2022-08-08] MEDS: Lactulose 30 ml UDC PO SCH ×3 (08:36→21:48)
[2022-08-08] MEDS: CMC:Ketoconazole 2 % CREAM (NF) 30 GM TUBE TOPICAL SCH ×3 (08:38→21:34)
[2022-08-08] MEDS: Olopatadine 0.1% OPHTH (NF) 1 DROP BTL BOTH EYES SCH ×2 (08:42→20:26)
[2022-08-08] MEDS ORDERED: NS 0.9% 500 ml BAG 500 ML IV SCH (14:00)
[2022-08-08] MEDS ORDERED: NS 0.9% 1000 ml BAG 1,000 ML IV SCH (14:30)
[2022-08-08 15:32] LABS: Direct Bilirubin 0.7 mg/dL (0.03-0.18); Indirect Bilirubin 1.3 mg/dL (0.3-1.0)
[2022-08-08] MEDS ORDERED: Prothrombin Complex Conc. DOSE = Units Factor IX (nine) IV SLOW PU ONE (17:12)
[2022-08-08] MEDS: cefTRIAXone 2 gm/50 mL D5W 2 GM/50 ML BAG IV SCH (21:37)
[2022-08-08] MEDS ORDERED: NS 0.9% 500 ml BAG 500 ML IV ONE (22:00)
[2022-08-09] MEDS: metroNIDAZOLE IV 500 MG/100ML 500 MG/100 ML BAG IVPB SCH ×4 (00:22→23:12)
[2022-08-09 09:17] LABS: ABS Eosinophils 0.1 10^3/ul (0-0.6); ABS Monocytes 1.2 10^3/ul (0-0.8); ABS Neutrophils 10.1 10^3/ul (1.5-7.7); Eosinophil % 1.1 %; Hematocrit 40 % (42-52); Hemoglobin 13.2 g/dL (14.0-18.0); Lymphocyte % 8.1 %; Mean Corpuscular HGB Conc 33 g/dL (31-36); Mean Corpuscular Hemoglobin 33 pg (27-31); Mean Corpuscular Volume 100 fL (80-94); Mean Platelet Volume 10.3 fL (7.4-10.4); Platelet Count 190 10^3/uL (150-450); Red Blood Count 4.03 10^6 /uL (4.18-5.48); Red Cell Distribution Width 17 % (10-15); White Blood Count 12.5 10^3/uL (3.5-10.8)
[2022-08-09 09:34] LABS: INR 2.89 (0.88-1.18)
[2022-08-09 09:45] LABS: Albumin/Globulin Ratio 0.9 (1-3); Calcium 8.6 mg/dL (8.6-10.3); Creatinine, Serum 1.26 mg/dL (0.67-1.17); Globulin 3.2 g/dL (2-4); Potassium 3.1 mmol/L (3.5-5.0); Total Bilirubin 1.3 mg/dL (0.2-1.0); Total Protein 6.2 g/dL (6.4-8.9); eGFR CKD-EPI 55.2 (>60)
[2022-08-09] MEDS: Potassium Chlor 20 meq TAB.ER PO SCH ×4 (09:46→20:21)
[2022-08-09] MEDS: CMC:Ketoconazole 2 % CREAM (NF) 30 GM TUBE TOPICAL SCH ×2 (09:49→20:21)
[2022-08-09] MEDS: Olopatadine 0.1% OPHTH (NF) 1 DROP BTL BOTH EYES SCH ×2 (09:59→20:22)
[2022-08-09] MEDS: Lactulose 30 ml UDC PO SCH ×2 (10:07→20:11)
[2022-08-09 10:19] LABS: Magnesium 2.2 mg/dL (1.9-2.7)
[2022-08-09] MEDS ORDERED: NS 0.9% 500 ml BAG 500 ML IV ONE (11:12)
[2022-08-09] MEDS: KCL 20 MEQ/100 ML IVPREMIX 20 MEQ/100 ML BAG IV SCH ×2 (12:20→15:23)
[2022-08-09] MEDS: cefTRIAXone 2 gm/50 mL D5W 2 GM/50 ML BAG IV SCH (20:31)
[2022-08-10 07:18] LABS: ABS Eosinophils 0.7 10^3/ul (0-0.6); ABS Monocytes 1.1 10^3/ul (0-0.8); ABS Neutrophils 6.3 10^3/ul (1.5-7.7); Eosinophil % 7.1 %; Hematocrit 36 % (42-52); Hemoglobin 12.5 g/dL (14.0-18.0); Lymphocyte % 11.2 %; Mean Corpuscular HGB Conc 34 g/dL (31-36); Mean Corpuscular Hemoglobin 34 pg (27-31); Mean Corpuscular Volume 98 fL (80-94); Mean Platelet Volume 10.2 fL (7.4-10.4); Nucleated Red Blood Cells % 0.2; Platelet Count 171 10^3/uL (150-450); Red Cell Distribution Width 17 % (10-15); White Blood Count 9.1 10^3/uL (3.5-10.8)
[2022-08-10 07:33] LABS: Calcium 8.2 mg/dL (8.6-10.3); Creatinine, Serum 1.14 mg/dL (0.67-1.17); Potassium 2.8 mmol/L (3.5-5.0); eGFR CKD-EPI 62.2 (>60)
[2022-08-10] MEDS: Lactulose 30 ml UDC PO SCH ×2 (07:59→21:08)
[2022-08-10] MEDS: Potassium Chlor 20 meq TAB.ER PO SCH ×2 (08:00→21:09)
[2022-08-10] MEDS: metroNIDAZOLE IV 500 MG/100ML 500 MG/100 ML BAG IVPB SCH ×2 (08:00→18:45)
[2022-08-10] MEDS: CMC:Ketoconazole 2 % CREAM (NF) 30 GM TUBE TOPICAL SCH ×2 (08:01→21:08)
[2022-08-10] MEDS ORDERED: Potassium Chlor 20 meq TAB.ER PO ONE (08:05)
[2022-08-10] MEDS: Olopatadine 0.1% OPHTH (NF) 1 DROP BTL BOTH EYES SCH ×2 (09:40→21:09)
[2022-08-10] MEDS: KCL 20 MEQ/100 ML IVPREMIX 20 MEQ/100 ML BAG IV SCH ×2 (09:48→14:01)
[2022-08-10] MEDS: cefTRIAXone 2 gm/50 mL D5W 2 GM/50 ML BAG IV SCH (23:23)
[2022-08-11] MEDS: metroNIDAZOLE IV 500 MG/100ML 500 MG/100 ML BAG IVPB SCH ×4 (00:13→23:23)
[2022-08-11 06:42] LABS: ABS Eosinophils 0.4 10^3/ul (0-0.6); ABS Lymphocytes 1.2 10^3/ul (1.0-4.8); ABS Monocytes 1.2 10^3/ul (0-0.8); ABS Neutrophils 5.8 10^3/ul (1.5-7.7); Eosinophil % 4.9 %; Hematocrit 36 % (42-52); Hemoglobin 12.2 g/dL (14.0-18.0); Lymphocyte % 13.9 %; Mean Corpuscular HGB Conc 35 g/dL (31-36); Mean Corpuscular Hemoglobin 34 pg (27-31); Mean Corpuscular Volume 98 fL (80-94); Mean Platelet Volume 9.5 fL (7.4-10.4); Nucleated Red Blood Cells % 0.2; Platelet Count 172 10^3/uL (150-450); Red Blood Count 3.64 10^6 /uL (4.18-5.48); Red Cell Distribution Width 17 % (10-15); White Blood Count 8.6 10^3/uL (3.5-10.8)
[2022-08-11 07:13] LABS: Albumin 2.8 g/dL (3.2-5.2); Calcium 7.9 mg/dL (8.6-10.3); Creatinine, Serum 0.99 mg/dL (0.67-1.17); Globulin 2.7 g/dL (2-4); Potassium 2.9 mmol/L (3.5-5.0); Total Bilirubin 1.1 mg/dL (0.2-1.0); Total Protein 5.5 g/dL (6.4-8.9); eGFR CKD-EPI 73.7 (>60)
[2022-08-11] MEDS: Lactulose 30 ml UDC PO SCH (08:11)
[2022-08-11] MEDS: Potassium Chlor 20 meq TAB.ER PO SCH (08:14)
[2022-08-11] MEDS: Olopatadine 0.1% OPHTH (NF) 1 DROP BTL BOTH EYES SCH ×2 (08:23→20:59)
[2022-08-11] MEDS: CMC:Ketoconazole 2 % CREAM (NF) 30 GM TUBE TOPICAL SCH ×3 (08:23→20:59)
[2022-08-11 09:56] LABS: Magnesium 1.9 mg/dL (1.9-2.7)
[2022-08-11] MEDS: Potassium Chloride LIQUID 20 MEQ/15 ML LIQUID PO SCH ×3 (09:57→20:57)
[2022-08-11] MEDS: KCL 20 MEQ/100 ML IVPREMIX 20 MEQ/100 ML BAG IV SCH ×2 (09:57→19:39)
[2022-08-11] MEDS: cefTRIAXone 2 gm/50 mL D5W 2 GM/50 ML BAG IV SCH (22:42)
[2022-08-12 07:39] LABS: Hematocrit 38 % (42-52); Hemoglobin 12.6 g/dL (14.0-18.0); Mean Corpuscular HGB Conc 34 g/dL (31-36); Mean Corpuscular Hemoglobin 33 pg (27-31); Mean Corpuscular Volume 98 fL (80-94); Mean Platelet Volume 9.6 fL (7.4-10.4); Platelet Count 165 10^3/uL (150-450); Red Blood Count 3.85 10^6 /uL (4.18-5.48); Red Cell Distribution Width 17 % (10-15); White Blood Count 9.8 10^3/uL (3.5-10.8)
[2022-08-12 08:24] LABS: Creatinine, Serum 0.9 mg/dL (0.67-1.17); Magnesium 1.9 mg/dL (1.9-2.7); Potassium 3.6 mmol/L (3.5-5.0); eGFR CKD-EPI 82.7 (>60)
[2022-08-12] MEDS: Lactulose 30 ml UDC PO SCH (08:29)
[2022-08-12] MEDS: metroNIDAZOLE IV 500 MG/100ML 500 MG/100 ML BAG IVPB SCH ×3 (08:29→23:53)
[2022-08-12] MEDS: Potassium Chloride LIQUID 20 MEQ/15 ML LIQUID PO SCH ×2 (08:29→21:22)
[2022-08-12] MEDS: Olopatadine 0.1% OPHTH (NF) 1 DROP BTL BOTH EYES SCH ×2 (08:34→21:27)
[2022-08-12] MEDS: CMC:Ketoconazole 2 % CREAM (NF) 30 GM TUBE TOPICAL SCH ×2 (08:34→21:25)
[2022-08-12 09:12] LABS: ABS Eosinophils 0.5 10^3/ul (0-0.6); ABS Lymphocytes 1.8 10^3/ul (1.0-4.8); ABS Monocytes 1.5 10^3/ul (0-0.8); ABS Neutrophils 6.1 10^3/ul (1.5-7.7); Eosinophil % 4.8 %; Lymphocyte % 17.9 %; Nucleated Red Blood Cells % 0.1
[2022-08-12] MEDS ORDERED: Pneumococcal Vac 23-Polyvalent IM ONE (12:00)
[2022-08-12] MEDS ORDERED: Potassium Chloride LIQUID 20 MEQ/15 ML LIQUID PO ONE (17:58)
[2022-08-12] MEDS: cefTRIAXone 2 gm/50 mL D5W 2 GM/50 ML BAG IV SCH (21:15)
[2022-08-13 06:56] LABS: Hematocrit 34 % (42-52); Hemoglobin 11.8 g/dL (14.0-18.0); Mean Corpuscular HGB Conc 35 g/dL (31-36); Mean Corpuscular Hemoglobin 34 pg (27-31); Mean Corpuscular Volume 98 fL (80-94); Platelet Count 158 10^3/uL (150-450); Red Blood Count 3.45 10^6 /uL (4.18-5.48); Red Cell Distribution Width 17 % (10-15); White Blood Count 8.7 10^3/uL (3.5-10.8)
[2022-08-13 07:15] LABS: Calcium 7.6 mg/dL (8.6-10.3); Creatinine, Serum 0.87 mg/dL (0.67-1.17); Magnesium 1.8 mg/dL (1.9-2.7); eGFR CKD-EPI 83.5 (>60)
[2022-08-13 07:22] LABS: ABS Basophils 0.1 10^3/ul (0-0.2); ABS Eosinophils 0.6 10^3/ul (0-0.6); ABS Lymphocytes 1.6 10^3/ul (1.0-4.8); ABS Monocytes 1.2 10^3/ul (0-0.8); ABS Neutrophils 5.2 10^3/ul (1.5-7.7); Lymphocyte % 18.3 %; Nucleated Red Blood Cells % 0.2
[2022-08-13] MEDS: Potassium Chloride LIQUID 20 MEQ/15 ML LIQUID PO SCH ×2 (08:45→22:18)
[2022-08-13] MEDS: metroNIDAZOLE IV 500 MG/100ML 500 MG/100 ML BAG IVPB SCH ×2 (08:47→16:14)
[2022-08-13] MEDS: Olopatadine 0.1% OPHTH (NF) 1 DROP BTL BOTH EYES SCH (08:52)
[2022-08-13] MEDS: CMC:Ketoconazole 2 % CREAM (NF) 30 GM TUBE TOPICAL SCH ×2 (08:52→22:16)
[2022-08-13] MEDS: Lactulose 30 ml UDC PO SCH (08:52)
[2022-08-13] MEDS ORDERED: Benzocaine/Menthol LOZ MT PRN (16:41)
[2022-08-13] MEDS: cefTRIAXone 2 gm/50 mL D5W 2 GM/50 ML BAG IV SCH (22:24)
[2022-08-14] MEDS: metroNIDAZOLE IV 500 MG/100ML 500 MG/100 ML BAG IVPB SCH ×2 (00:11→09:05)
[2022-08-14 07:03] LABS: Calcium 7.8 mg/dL (8.6-10.3); Magnesium 1.9 mg/dL (1.9-2.7)
[2022-08-14 07:09] LABS: Creatinine, Serum 0.87 mg/dL (0.67-1.17); eGFR CKD-EPI 83.5 (>60)
[2022-08-14] MEDS: Potassium Chloride LIQUID 20 MEQ/15 ML LIQUID PO SCH (08:58)
[2022-08-14] MEDS: Lactulose 30 ml UDC PO SCH (09:01)
[2022-08-14] MEDS: CMC:Ketoconazole 2 % CREAM (NF) 30 GM TUBE TOPICAL SCH (10:16)
[2022-08-14 12:47] VITALS: BP 92/55
[2022-08-14 12:48] LABS: Rapid COVID-19 Molecular Undetected (Undetected)
== END 2022-08-14 14:05 | DRG 871 ==
LOC: ED 10:07 → EDHOLD 10:07 → SUATTDRO 14:39 → EDHOLD 08-08 12:59 → MEDTELE 08-08 13:27 → SUATTDRO 08-09 15:25
PROVIDERS: ADMIT Internal Medicine; ATTEND Internal Medicine

== ENCOUNTER 2022-10-15 14:07 | Inpatient (IN) ==
[2022-10-15] MEDS ORDERED: Ondansetron 4 mg VIAL 2 MG/ML 2 ml VIAL IV ONE (17:42)
[2022-10-15 17:58] LABS: ABS Basophils 0.1 10^3/ul (0-0.2); ABS Eosinophils 0.7 10^3/ul (0-0.6); ABS Lymphocytes 2.7 10^3/ul (1.0-4.8); ABS Monocytes 1.3 10^3/ul (0-0.8); ABS Neutrophils 7.4 10^3/ul (1.5-7.7); Hematocrit 32 % (42-52); Hemoglobin 10.8 g/dL (14.0-18.0); Lymphocyte % 21.9 %; Mean Corpuscular HGB Conc 34 g/dL (31-36); Mean Corpuscular Hemoglobin 35 pg (27-31); Mean Corpuscular Volume 105 fL (80-94); Mean Platelet Volume 9.3 fL (7.4-10.4); Platelet Count 201 10^3/uL (150-450); Red Blood Count 3.09 10^6 /uL (4.18-5.48); Red Cell Distribution Width 17 % (10-15); White Blood Count 12.2 10^3/uL (3.5-10.8)
[2022-10-15] MEDS ORDERED: Cefepime 1 GM in Dextrose 1 GM/50 ML BAG IV ONE (18:04)
[2022-10-15] MEDS ORDERED: Vancomycin 1,000 MG in NS 0.9% 250 ml 250 ML IVPB ONE (18:04)
[2022-10-15 18:06] LABS: INR 2.48 (0.88-1.18)
[2022-10-15 18:06] LABS: Urine Appearance Clear; Urine Bilirubin Negative (Negative); Urine Blood Negative (Negative); Urine Color Yellow; Urine Glucose 2+(150 mg/dL) (Negative); Urine Ketones Negative (Negative); Urine Nitrite Negative (Negative); Urine Protein Negative (Negative); Urine Urobilinogen Negative (Negative)
[2022-10-15] MEDS ORDERED: Bumetanide IV 0.25 MG/ML 4 ml VIAL (1 mg) ONE (18:10)
[2022-10-15] MEDS ORDERED: Chlorothiazide IV 500 mg VIAL IV ONE (18:12)
[2022-10-15] MEDS ORDERED: Vancomycin 1,750 MG in NS 0.9% 500 ml BAG 500 ML IVPB ONE (18:30)
[2022-10-15 18:33] LABS: Albumin 2.9 g/dL (3.2-5.2); Albumin/Globulin Ratio 0.8 (1-3); C Reactive Protein 109.15 mg/L (<8.01); Calcium 8.3 mg/dL (8.6-10.3); Creatinine, Serum 1.69 mg/dL (0.67-1.17); Globulin 3.5 g/dL (2-4); Magnesium 2.6 mg/dL (1.9-2.7); Potassium 4.4 mmol/L (3.5-5.0); Total Bilirubin 0.9 mg/dL (0.2-1.0); Total Protein 6.4 g/dL (6.4-8.9); eGFR CKD-EPI 38.8 (>60)
[2022-10-15] MEDS ORDERED: Iodixanol (CONTRAST) 320 MG/ML 100 ML SDV IV ONE (18:48)
[2022-10-15] MEDS ORDERED: Bumetanide 10 MG/40 ML IV DRIP IV ONE (19:00)
[2022-10-15 19:40] LABS: High Sensitivity Troponin 1 Hr 229 pg/mL (<20)
[2022-10-15] MEDS ORDERED: Morphine 10 MG/ML VIAL (1 ml) IV ONE (19:57)
[2022-10-16] MEDS ORDERED: Olopatadine 0.1% OPHTH (NF) 1 DROP BTL BOTH EYES PRN (00:25)
[2022-10-16] MEDS ORDERED: Metoprolol Tartrate 5 mg VIAL 5 ml VIAL (1 mg/ml) IV ONE (03:05)
[2022-10-16] MEDS ORDERED: Benzocaine/Menthol LOZ PO PRN (05:44)
[2022-10-16] MEDS ORDERED: Triamcinolone 0.025% OINT 15 GM TUBE TOPICAL PRN (05:48)
[2022-10-16 06:25] LABS: ABS Basophils 0.1 10^3/ul (0-0.2); ABS Eosinophils 0.3 10^3/ul (0-0.6); ABS Lymphocytes 1.2 10^3/ul (1.0-4.8); ABS Monocytes 1.3 10^3/ul (0-0.8); ABS Neutrophils 11.5 10^3/ul (1.5-7.7); Eosinophil % 1.9 %; Hematocrit 32 % (42-52); Hemoglobin 10.8 g/dL (14.0-18.0); Lymphocyte % 8.7 %; Mean Corpuscular HGB Conc 34 g/dL (31-36); Mean Corpuscular Hemoglobin 35 pg (27-31); Mean Corpuscular Volume 104 fL (80-94); Mean Platelet Volume 8.7 fL (7.4-10.4); Platelet Count 231 10^3/uL (150-450); Red Blood Count 3.09 10^6 /uL (4.18-5.48); Red Cell Distribution Width 17 % (10-15); White Blood Count 14.3 10^3/uL (3.5-10.8)
[2022-10-16 07:05] LABS: Calcium 8.3 mg/dL (8.6-10.3); Potassium 4.3 mmol/L (3.5-5.0)
[2022-10-16 07:11] LABS: Creatinine, Serum 1.8 mg/dL (0.67-1.17)
[2022-10-16] MEDS ORDERED: Heparin 1,000 UNIT/ML 10 ml (10,000 UNITS) CATHLAB/DIALYSIS DIALYSIS SCH (09:00)
[2022-10-16] MEDS ORDERED: PRAMOXINE 1% TOPICAL SCH (09:00)
[2022-10-16] MEDS ORDERED: Oral Rinse (Biotene)(NF) 237 ML or 473 ML ORAL RINSE BTL SWISH SPIT PRN (09:00)
[2022-10-16] MEDS ORDERED: Morphine 2 MG/ML SYRINGE IV PRN ×2 (11:19→12:29)
[2022-10-16] MEDS ORDERED: Ondansetron ODT 4 mg TAB 4 MG TAB SL PRN (12:24)
[2022-10-16] MEDS ORDERED: Morphine ORAL CONCENTRATE 5 MG/0.25 ML ORAL.SYRIN PO PRN ×2 (12:24→16:10)
[2022-10-16] MEDS ORDERED: Morphine ORAL CONCENTRATE 5 MG/0.25 ML ORAL.SYRIN SL PRN ×2 (12:24→16:10)
[2022-10-16] MEDS: Albumin Human 25% 12.5 GM/50 ML BTL IV SCH ×2 (12:35→12:36)
[2022-10-16 13:20] VITALS: BP 88/52
[2022-10-16] MEDS: Morphine 2 MG/ML SYRINGE IV PRN ×2 (13:27→16:13)
[2022-10-16] MEDS ORDERED: Morphine PCA ADULT 5 MG/ML 30 ML PCA SCH (16:15)
[2022-10-17] MEDS: Morphine PCA ADULT 5 MG/ML 30 ML PCA SCH (22:09)
[2022-10-19] MEDS: Morphine PCA ADULT 5 MG/ML 30 ML PCA SCH (11:18)
[2022-10-20] MEDS: Acetaminophen IV 1 GM/100ML 1,000 MG/100 ML BAG IV PRN ×2 (10:21→17:36)
[2022-10-20] MEDS ORDERED: Scopolamine 1 mg/72hr PATCH TRANSDERM SCH (12:00)
== END 2022-10-20 20:35 | disposition expired | DRG 871 ==
LOC: ED 14:07 → SUATTDRO 23:45 → EDHOLD 23:45 → MED 10-16 13:06
PROVIDERS: ADMIT Internal Medicine; ATTEND Internal Medicine